=== PATIENT | male | born 1955 | race Caucasian/White ===

== ENCOUNTER → 2023-07-01 15:42 | Outpatient (REF) | payer BC, SELFPAY | LOC: RAD 15:42 | PROVIDERS: ATTENDING PHYSICIAN Nurse Practitioner | DX: R22.1 Localized swelling, mass and lump, neck (principal) | CPT/HCPCS: 76536 ==

== ENCOUNTER → 2023-07-07 16:58 | Outpatient (REF) | payer BC, SELFPAY | LOC: CLAB 16:58 | PROVIDERS: ATTENDING PHYSICIAN Otolaryngology | DX: R22.1 Localized swelling, mass and lump, neck (principal) | CPT/HCPCS: 88173 ==

== ENCOUNTER → 2023-07-16 09:37 | Outpatient (REF) | payer BC, SELFPAY | LOC: RAD 09:37 | PROVIDERS: ATTENDING PHYSICIAN Nurse Practitioner | DX: R22.1 Localized swelling, mass and lump, neck (principal) | CPT/HCPCS: 70491; Q9967 ==

== ENCOUNTER → 2023-08-04 12:13 | Outpatient (REF) | payer BC, SELFPAY ==
[2023-08-04 12:45] VITALS: BP 150/91; BP_SYST 69
== END ==
LOC: RADI 12:13
PROVIDERS: ATTENDING PHYSICIAN Otolaryngology; FAMILY PHYSICIAN Nurse Practitioner
DX: C07 Malignant neoplasm of parotid gland (principal)
CPT/HCPCS: 88305; 20206; 76942; 88333; 88334; 88341; 88342

== ENCOUNTER 2023-12-17 17:59 | Inpatient (IN) | payer BC, MEDICARE, SELFPAY ==
[2023-12-17] VITALS (52 sets, daily range): BP systolic 67–147; BP diastolic 37–119; BMI 21.6
[2023-12-17 13:44] LABS: Lactic Acid 3.5 mmol/L (0.7-2.0)
[2023-12-17] MEDS: NSS 1000 IV ×4 (13:49→20:53)
[2023-12-17 13:50] LABS: % Basophils 0.2 % (0-2); % Eosinophils 0.2 % (0-6); % Monocytes 8.2 % (1.7-9.3); % Neutrophils 80.4 % (42.2-75.2); Absolute Immature Granulocytes 0.2 10^3/uL (0-0.05); Absolute Lymphocytes 0.3 10^3/uL (1.2-3.4); Absolute Monocytes 0.4 10^3/uL (0.1-0.6); Absolute Neutrophils 3.4 10^3/uL (1.4-6.5); Hematocrit 23.6 % (39.0-52.0); Hemoglobin 7.9 g/dL (13.0-18.0); Mean Corp Hgb Conc. 33.5 g/dL (33.0-37.0); Mean Corpuscular Hgb 34.1 pg (27.0-31.0); Mean Corpuscular Volume 101.7 fL (80.0-94.0); Mean Platelet Volume 12.3 fL (7.4-10.4); Nucleated Red Blood Cells % 2.1 % (-); Platelet Count 36 10^3/uL (130-400); Red Blood Cell Count 2.32 10^6/uL (4.70-6.10); Red Cell Dist. Width 18.4 % (11.5-14.5); White Blood Cell Count 4.3 10^3/uL (4.8-10.8)
[2023-12-17 13:56] LABS: ALT (SGPT) 19 U/L (0-50); AST (SGOT) 76 U/L (17-59); Alkaline Phosphatase 403 U/L (38-126); Blood Urea Nitrogen 72 mg/dl (9-20); Calcium 7.9 mg/dl (8.4-10.2); Carbon Dioxide 22 mmol/L (22-30); Chloride 109 mmol/L (98-107); Estimated Creatinine Clearance 38 ml/min; Glucose 109 mg/dl (70-99); Magnesium 2.3 mg/dl (1.6-2.3); Potassium 5.2 mmol/L (3.5-5.1); Sodium 138 mmol/L (135-145); Total Bilirubin 0.7 mg/dl (0.2-1.3); Total Protein 5.4 g/dl (6.3-8.2); eGFR 39.99
--- NOTE | 2023-12-17 15:06 | ED.GENMED ---
History of Present Illness
General
Chief Complaint: Dizziness
Source: patient, spouse and family
Time Seen by Provider: 12/17/23 13:32
History of Present Illness
History of Present Illness:
68-year-old male with a history of unfortunate metastatic salivary duct cancer. Patient presents after his tried to stand him up and he was so weak he could not walk. Patient states he has been tired and weak. Patient underwent his dose of
radiation about 1 to 2 weeks ago to the left mandibular region/neck. He is awaiting reevaluation to decide on the next course. The patient was a longtime smoker. No longer smokes. Does admit he has lost weight and he has not been eating and
drinking quite as much as he should. Denies fevers. Recently was put on some Zofran for nausea. No headaches. No new vision changes. 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
Past History
Past History
ED Past Medical History: Cancer (Salivary cancer, metastatic), HTN and Hypercholesterolemia
Social History
Tobacco: Former smoker
Phy Exam
Physical Exam
Physical Exam:
CONSTITUTIONAL Patient alert and oriented to person, place and time. Vital signs reviewed. Hypotensive. Pale.
HEAD atraumatic, normocephalic.
EYES Pupils equally round and reactive to light, Extraocular muscles intact, Conjunctiva normal, Sclera normal.
NECK recent skin changes noted to the left neck. There is redness about his left ear and left neck with an open wound. There is some drainage but family states that this is much improved
RESPIRATORY CHEST No respiratory distress noted, Chest expansion equal, Bilateral breath sounds clear.
CARDIOVASCULAR regular rate and rhythm, Heart sounds normal.
ABDOMEN abdomen nontender, Bowel sounds normal. No distention.
UPPER EXTREMITY range of motion normal, Motor strength normal, no cyanosis, no edema.
LOWER EXTREMITY range of motion normal, Motor strength normal, no cyanosis, no edema.
NEURO left 7th nerve palsy noted. Slight slurring of the speech due to 7th nerve palsy.
SKIN skin warm, dry, and pale in color.
Course
Orders/Labs/Results
Orders:
Orders
12/17/23 13:23
EKG [Electrocardiogram (*1)] Urgent
Reason for Study: Vertigo / Dizzy
12/17/23 13:24
EKG- Treatment ONCE
12/17/23 13:25
Complete Blood Count/With Diff Urgent
Comprehensive Metabolic Panel Urgent
Lactic Acid Urgent
Magnesium Urgent
Comment: ADD
12/17/23 13:45
Add On- LAB Urgent
Tests Added?: Mg
0.9% Sodium Chloride 1000 ml [Nss] 1,000 ml IV BOLUS
12/17/23 13:46
CR Chest Portable - 1 View Urgent
Comment:
Reason For Exam: hypotension, salivary Ca, PICC line
Reason Study Needs to be Portable: Patient Unstable
12/17/23 14:16
CT Chest W/o Iv Contrast Urgent
Comment:
Reason For Exam: weak, SOB, abn CXR. h/o salivary gland ca
CT Head W/o Iv Contrast Urgent
Comment:
Reason For Exam: change in MS, h/o metastatic salivary gland ca
12/17/23 14:37
* Blood Bank Products Urgent
Blood Bank Products: *Packed RBC Leuko(PRBC's)
Quantity: 1
Transfuse Today: Yes
Reason: Anemia
IV Insert/Care/Rem.- Treatment PRN
12/17/23 14:38
Piperacillin/Tazo 4.5 Gram [Zosyn] 4.5 gram in 100 ml IV NOW
12/17/23 Dinner
Clear Liquid
At Your Request: Full Participation
Does patient need a safe tray?: No
12/17/23 15:07
Vancomycin [Vancocin] 2,000 mg 0.9% Sodium Chloride 500 ml [Nss] 500 ml IV NOW
12/17/23 15:09
0.9% Sodium Chloride 1000 ml [Nss] 1,000 ml IV BOLUS
12/17/23 15:16
Type And Crossmatch Urgent
Blood Culture Urgent
GENO Source: Blood/Venous
Specimen Description:
12/17/23 15:20
0.9% Sodium Chloride 1000 ml [Nss] 1,000 ml IV BOLUS
12/17/23 15:51
NORepinephrine 4 MG/250 ML [Levophed] 4 mg in 250 ml IV NOW
Initial dose in mcg/min, then titrate:: 2
Titrate to keep:: MAP > 65 mmHg
Titrate by mcg/min:: 1-2 mcg/min
Frequency of titrations (minutes):: 5
Maximum dose in ICU in mcg/min:: 30
Maximum dose in IMU in mcg/min:: 8
Maximum dose in IVU in mcg/min:: 4
Begin to taper infusion when:: Remained at goal for 4hrs
Taper by mcg/min:: 1-2 mcg/min
Frequency of taper (minutes) if patient maintains goal:: 30
Taper to off?: Yes
If infusion off & no longer maintaining goal:: Contact Provider
12/17/23 15:58
Piperacillin/Tazo 4.5 Gram [Zosyn] 4.5 gram in 100 ml .ROUTE .STK-MED
12/17/23 17:01
Admit/Transfer Patient As Directed
Co-Sign Provider:
Level of Care: Inpatient admission
Assign to:: ICU
Physician / Group: Hospitalists
Diagnosis: Clinical shock suspected sepsis
Reason for Hospitalization: See above
Expected length of stay greater than two midnights?: Yes
ELOS- Estimated Length of Stay in days: 4
I certify the patient meets the requirements for IP care: Yes
PRN Pain Medication Management As Directed
May give lesser potent ordered pain med per pt: Yes
preference::
Protocol:: Medication orders for pain may be administered in a
manner that supports deferring to patient preference
when the pt is:
-Requesting an ordered lesser potent pain medication.
Least to most potent pain medications are defined as:
acetaminophen < NSAID < tramadol < opioids (morphine,
oxycodone, hydromorphone).
- Requesting a lesser dose of the same medication IF
ORDERED.
- Requesting a less intrusive route of administration
if both routes are prescribed by the provider (PO <
IV).
12/17/23 17:07
Code Status As Directed
Resuscitation Status: Full Code
12/17/23 18:51
Lactic Acid Urgent
12/17/23 19:58
Lactic Acid Q6H
0.9% Sodium Chloride 1000 ml [Nss] 1,000 ml IV 125 mls/hr
Acetaminophen [Tylenol] 1,000 mg PO Q6HPRN PRN
NORepinephrine 4 MG/250 ML [Levophed] 4 mg in 250 ml IV PER PROTOCOL
Currently infusing. Continue current dose and titrate:: Yes
Titrate to keep:: MAP > 65 mmHg
Titrate by mcg/min:: 1-2 mcg/min
Frequency of titrations (minutes):: 5
Maximum dose in ICU in mcg/min:: 30
Maximum dose in IMU in mcg/min:: 8
Maximum dose in IVU in mcg/min:: 4
Begin to taper infusion when:: Remained at goal for 4hrs
Taper by mcg/min:: 1-2 mcg/min
Frequency of taper (minutes) if patient maintains goal:: 30
Taper to off?: Yes
If infusion off & no longer maintaining goal:: Contact Provider
Ondansetron Injectable [Zofran] 4 mg IV Q6HPRN PRN
Oxycodone [Roxicodone] 10 mg PO Q4HPRN PRN
Piperacillin/Tazo 2.25 Gram [Zosyn] 2.25 grams in 50 ml IV Q6H
VANCOMYCIN Pharmacy to Dose [VANCOCIN Pharmacy to Dose] 1 each Pharmacy To Prepare [Call Pharmacy To Prepare] 0 ml IV PER PROTOCOL
12/17/23 19:58
INFECTIOUS DISEASE CONSULT Routine
Consulting Provider: Elza Alvarez
Was physician already notified: Yes
Reason for consult: Septic Shock
WOUND/OSTOMY CONSULT Routine
Reason for Consult: Left neck radiation wound
Activity As Directed
Activity Level: With Assistance
Bladder Scan As Directed
Follow Bladder Retention/Intermittent Cath Algorithm?: Yes
PRN if no void in __ hours: 6
Frequency: Per Retention Algorithm
If Bladder Scan Result >: 400
then:: Straight cath
I&O [Intake/ Output] As Directed
Frequency: q12h
Sequential Compression Device [Pneumatic Compression Sleeves] As Directed
Type: Knee high
Straight Cath As Directed
Frequency: Per Retention Algorithm
Additional Instructions: straight cath as needed per acute urinary retention algorithm for 24 hrs
Additional Instructions: for bladder scan greater than 400 mL
Oxygen Therapy [O2 Therapy] [RESP] Routine
Titrate/Wean O2 to maintain O2 sat greater than (%): 93
Speech Therapy Eval & Treat Routine
DX Deep Vein Thrombosis Video Routine
12/17/23 20:00
Tamsulosin [Flomax] 0.4 mg PO BID
calcium acetate-aluminum sulf [Domeboro] 1 applic TOPICAL BID
fluticasone propion-salmeterol [Advair Diskus] 1 inh INH R BID
ulzonfxa-ksdvfdzhbYq-nzveotguL [Neosporin (zyl-jux-zeicc)] 1 applic TOPICAL BID
12/17/23 22:00
Gabapentin [Neurontin] 300 mg PO TID
Trazodone [Desyrel] 50 mg PO HS
12/18/23 01:58
Lactic Acid Q6H
12/18/23 06:00
CBC/No Diff [Complete Blood Count/No Diff] IN AM
CMP [Comprehensive Metabolic Panel] IN AM
12/18/23 08:00
Rosuvastatin Calcium [Crestor] 20 mg PO DAILY
Abnormal Lab Results
12/17/23 12/17/23
13:25 15:16
WBC 4.3 L 10^3/uL
(4.8-10.8)
RBC 2.32 L 10^6/uL
(4.70-6.10)
Hgb 7.9 L g/dL
(13.0-18.0)
Hct 23.6 L %
(39.0-52.0)
MCV 101.7 H fL
(80.0-94.0)
MCH 34.1 H pg
(27.0-31.0)
RDW 18.4 H %
(11.5-14.5)
Plt Count 36 L 10^3/uL
(130-400)
MPV 12.3 H fL
(7.4-10.4)
Abs Immat Gran (auto) 0.2 H 10^3/uL
(0-0.05)
Absolute Lymphs (auto) 0.3 L 10^3/uL
(1.2-3.4)
Immature Gran % 4.0 H %
(0-0.5)
Neutrophils % 80.4 H %
(42.2-75.2)
Lymphocytes % 7.0 L %
(20.5-51.1)
Potassium 5.2 H mmol/L
(3.5-5.1)
Chloride 109 H mmol/L
(98-107)
BUN 72 H mg/dl
(9-20)
Creatinine 1.8 H mg/dL
(0.7-1.3)
Glucose 109 H mg/dl
(70-99)
Lactic Acid 3.5 H mmol/L
(0.7-2.0)
Calcium 7.9 L mg/dl
(8.4-10.2)
AST 76 H U/L
(17-59)
Alkaline Phosphatase 403 H U/L
(38-126)
Total Protein 5.4 L g/dl
(6.3-8.2)
Albumin 3.0 L g/dl
(3.5-5.0)
Crossmatch IS Only See Detail
12/17/23 13:25
12/17/23 13:25
Vital Signs
Initial and Last Documented VS:
Initial Vital Signs
BP
84/51
12/17/23 13:22
Last Documented Vital Signs
Temp Pulse Resp BP Pulse Ox
98.6 F 93 11 104/88 96
12/17/23 20:04 12/17/23 20:07 12/17/23 20:07 12/17/23 19:49 12/17/23 19:39
MDM/Problems Addressed
MDM/Problems Addressed:
Pancytopenia, thrombocytopenia, anemia, dehydration, hypotension, lactic acidosis, possible pneumonia versus metastatic disease
*Radiology
Radiology exam reviewed: preliminary read by ED provider (Interstitial changes bilateral concerning for infection versus metastatic disease)
*Pulse Oximetry
Patient hypoxic: no
*EKG
Interpreted by ED Provider?: Yes
Interpretation: abnormal
Rate: normal
Rhythm: sinus
QRS Pattern: poor R-wave progression
Ischemia: non-specific ST changes
*[employer] Interpretation
Rate: normal
Interpretation: normal
Rhythm: sinus
*Critical Care Note
Total Time (30-74mins, 75-104mins- exclusive of procedures): 60 minutes
Data Reviewed
Review of Other/Old Records Reveals: Labs (Prior labs reviewed as patient's has copy of labs from June but only shows complete metabolic profile that was normal)
Source: patient and spouse
Further Testing Considered But Not Given:
Consider CTA but no hypoxia and do not suspect pulmonary embolism
Patient Management
Discussion with other providers: Hospitalist
Escalation/DeEscalation of care consider admission/obs:
Patient hypotensive. Suspect hypovolemia but also concern for infection given his pancytopenia. Given lactic acidosis, treat broad-spectrum antibiotics and continue fluids. Also will transfuse 1 unit of packed cells. I believe that the
pancytopenia is new as spouse is unaware of any anemia that he has had. Chest x-ray reviewed by me independently and I am concerned about metastatic disease. Check CT. Admit
ED Attending Note
-
Portions of this chart may have been created with voice recognition software.� Occasional wrong word or��sound alike� substitutions may have occurred due to the inherent limitations of voice recognition software.
Discharge Plan
Departure
Patient Disposition: Admit
Date of Disposition: 12/17/23
Time of Disposition: 15:10
Admit to: Telemetry
Presentation/result/management discussed w/ accepting MD/DO: Hospitalist
Discharge Problem:
Hypovolemia, Anemia, Thrombocytopenia, Pancytopenia, metastatic salivary cancer
Interventions
Interventions:
*Risk Screen - Suicide Last Done: 12/17/23 13:30
*General Assessment Last Done: 12/17/23 13:30
*Neglect/Abuse Screening Last Done: 12/17/23 13:30
ED- Fall Risk Assessment Last Done: 12/17/23 13:30
*ED COVID-19 Vaccine History Last Done: 12/17/23 13:30
*Nursing Disposition Last Done: 12/17/23 18:56
ED- Neurological Assessment Last Done: 12/17/23 13:30
ED- Cardiac Assessment Last Done: 12/17/23 13:30
ED Swallowing Screen Last Done: 12/17/23 13:30
Discharge Date and Time
Discharge Date/Time: 12/17/23 19:50
[2023-12-17] MEDS: VANCOCIN 540 MG IV (15:38)
--- NOTE | 2023-12-17 15:50 | EDRN ---
this RN noticed that the pt was hypotensive, Dr. Jimenez notified, IVF Bolus hung and running along with IV ABX, currently blood pressure 86/59 (68), awaiting blood products, per the pts brothers request and the pt the pt was repositioned onto his
left side due to pain in the sacral area, this RN and Mario RN repositioned the pt for comfort, per Dr. Jimenez levophed is to be hung, per the provider the RUE DL PICC is able to be used
--- NOTE | 2023-12-17 15:55 | EDRN ---
awaiting for pharmacy to sent radha
[2023-12-17] MEDS: ZOSYN 100 IV (16:03)
[2023-12-17] MEDS: LEVOPHED 250 IV ×2 (16:11→21:52)
--- NOTE | 2023-12-17 16:20 | EDRN ---
Levophed hung and running via RUE PICC, the PICC is being used per Dr Menard verbal orders, the pt is resting in stretcher in the lowest position, side rails up xx2, call solorio within reach, HOB elevated, no c/o pain, the pt is currently still
resting on his left side for comfort due to sacral pain, the pt is currently in NSR in the 90's, RA p02 96%, no c/o chest pain, no c/o SOB, last BP 73/56 (62) with Levo going at 2mcg/kg/min, will continue to monitor the pt closely
--- NOTE | 2023-12-17 16:36 | EDRN ---
the pts Sp02 dropped to 88%, this RN placed 4L NC on the pt and sp02 came up to 96%, provider notified
--- NOTE | 2023-12-17 16:36 | EDRN ---
still awaiting for blood to be verified
--- NOTE | 2023-12-17 16:52 | EDRN ---
hospitalist is currently at the pts bedside
--- NOTE | 2023-12-17 17:26 | EDRN ---
still awaiting for blood to be verified from the blood bank
--- NOTE | 2023-12-17 17:40 | W.PN.UPDATE ---
Update Note
Progress Note Update
I personally performed a history and physical exam of the patient and discussed management with the resident. I reviewed the resident's note and agree with the documented findings and plan of care HPI/CC.
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 His cancer team including rad oncology, ENT and med unk are at [facility]. Has not received yet
chemoradiation. He has left neck radiation wound which according to the family is getting better.
He presents with dizziness, weakness and fatigue and discovered to have significant hypotension which did not respond to fluid and suggestive of shock. Requiring vasopressors in the ER. His left leg wound does not look infected. Is got a left
facial nerve palsy and he has had some difficulty chewing. Denies any coughing or food but does admit to aspiration. Chest x-ray shows bilateral interstitial kind of pneumonia. No GI or symptoms. Clinical concern is either aspiration
pneumonia/hospital associated pneumonia versus other interstitial lung process. Continue with Levophed and fluid. Started on Vanco and Zosyn. Consult ID. Keep him on clear liquids and order speech therapy eval.
No known cardiac history. History of hypertension on oral medication which we will hold. EKG shows nonspecific ST-T changes. Check troponins. Consider echocardiogram.
Lactic acidosis noted which is suspect may be secondary to sepsis. Continue to trend with hemodynamic support.
Surprising thing is pancytopenia. Patient did not receive any chemo or immune therapy yet. 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 Will touch base with primary
oncologist to see how his blood counts were before. Because severe nature of anemia he was ordered PRBC in the ER. Follow platelets closely. He is not neutropenic.
Hypoxic respiratory kamkuzqkrqnum-peogz-kkdpoqa secondary to underlying lung disease. Support with oxygen for now and treat possible pneumonia and follow.
Possible acute kidney injury-patient has elevated BUN/creatinine. No acidosis no significant fluid overload clinically. Unknown baseline. Support hemodynamics with fluids and vasopressors. Check bladder scan. If no improvement will consider
ultrasound of the renal tract in AM. Denies any urinary symptoms of retention.
Full code.
DW at bedside.
--- NOTE | 2023-12-17 18:31 | HPS.HSE ---
Family Physician
-
Family Physician: DEION Johnson
Chief Complaint
-
Dizziness and weakness
History of Present Illness
Patient is a 68-year-old gentleman who presented to the emergency department after his tried to stand up in the morning and he was so weak he could not walk. Patient felt tired and weak. Patient underwent radiation about 1 to 2 weeks ago to
the left mandibular region/neck for left parotid gland adenocarcinoma. There are C2 vertebral body metastasis and rib metastases but no known history of bone marrow infiltration. He has had 20 cycles of radiation treatments at [facility]
[place]. His cancer team including rad oncology, ENT, and med oncology are at [facility]. He was awaiting reevaluation to decide on his next course patient has history of being a longtime smoker and has quit smoking. Patient
stated that he was aware that he had been losing weight and contributes it to eating and drinking not as much as he should. Patient denied any fevers, headaches, or new vision changes. 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 He
presented with dizziness, weakness and fatigue and was discovered to have significant hypotension which was not responsive to fluid - suggesting shock. Patient required vasopressors in the emergency department. Patient denied any coughing of food
but did admit to having aspiration at times. Chest x-ray conducted in the emergency department showed diffuse coarsening of the interstitial markings throughout both lungs which was new compared to prior studies�suggesting diffuse interstitial
pneumonia. Patient was admitted to [facility] for clinical shock due to suspected sepsis.
Medical History
Past Medical History
Past Medical History: Reports Cancer, COPD, HTN and Hypercholesterolemia
Past Surgical History: Reports None
Social History
Tobacco: Former Smoker
Alcohol: None
Drug: None
Family History
Family History: Not pertinent
Allergies / Home Medications
Allergies reflects when Allergies were last updated in [facility].
Home Medications with original date entered in [facility]
Allergy/Medication List:
Allergies
Allergy/AdvReac Type Severity Reaction Status Date / Time
No Known Allergies Allergy Unverified 08/03/23 09:32
Home Medications
rosuvastatin 20 mg tablet 20 mg PO DAILY 08/03/23
tamsulosin 0.4 mg capsule 0.4 mg PO BID 08/03/23
acetaminophen 500 mg tablet (Tylenol Extra Strength) 1,000 mg PO Q6HPRN PRN mild pain 12/17/23
calcium acetate 952 mg-aluminum sulfate 1,347 mg topical powder packet (Domeboro) 1 applic topical BID cancer treatment wounds 12/17/23
fluticasone 250 mcg-salmeterol 50 mcg/dose blistr powdr for inhalation (Advair Diskus) 1 inh inhalation R BID 12/17/23
gabapentin 300 mg capsule 300 mg PO TID 12/17/23
ibuprofen 200 mg tablet (Advil) 600 mg PO Q6HPRN PRN mild pain 12/17/23
metoprolol tartrate 25 mg tablet 25 mg PO BID 12/17/23
neomycin-bacitracn Zn-polymyxn 3.5 mg-400 unit-5,000 unit top oint pkt (Neosporin(oht-ody-nouin)) 1 applic topical BID cancer treatment wounds 12/17/23
ondansetron HCl 8 mg tablet 8 mg PO Q8HPRN PRN nausea 12/17/23
oxycodone 10 mg tablet 10 mg PO Q4HPRN PRN severe pain 12/17/23
trazodone 50 mg tablet 50 mg PO HS 12/17/23
valsartan 80 mg tablet 80 mg PO DAILY 12/17/23
Review of Systems
-
History Source: Patient
Constitutional: Reports See HPI
Physical Exam
Vital Signs
Vital Signs
Temp Pulse Resp BP Pulse Ox
97.8 F 95 16 91/80 96
12/17/23 18:13 12/17/23 18:13 12/17/23 18:13 12/17/23 18:13 12/17/23 18:13
Physical Exam
General: Well Developed and Other (Reduced Body Temperature)
HEENT: NormoCephalic and Anicteric
Respiratory: Clear
Cardiac: S1/S2 and Regular Rhythm
Breast: Deferred by me
GI: Soft, Non Tender and Non Distended
Rectal: Deferred by Provider
Genito-urinary: Deferred by me
Musculoskeletal: No Clubbing
Skin: Warm and Dry
Neuro: Facial Droop
Psych: Calm
Laboratory Results
-
12/17/23 13:25
12/17/23 13:25
Laboratory Results
Lactic Acid 3.5 mmol/L (0.7-2.0) H 12/17/23 13:25
Total Bilirubin 0.7 mg/dl (0.2-1.3) 12/17/23 13:25
AST 76 U/L (17-59) H 12/17/23 13:25
ALT 19 U/L (0-50) 12/17/23 13:25
Alkaline Phosphatase 403 U/L (38-126) H 12/17/23 13:25
Impression/Plan
-
- Clinical shock due to suspected sepsis: Monitoring
significant hypotension requiring vasopressors in the emergency department
Patient admitted to aspiration and chest x-ray shows signs of pneumonia with extensive diffuse coarsening of the interstitial markings throughout both lungs -clinical concern is either aspiration pneumonia/hospital acquired pneumonia versus other
interstitial lung processes.
Blood culture drawn
Continue Levophed and fluid
Vancomycin and Zosyn started
Infectious diseases consulted
Patient will be kept on clear liquids and a speech therapy eval has been ordered.
- Pancytopenia: Monitoring
1 unit of PRBCs given due to severe anemia
Trend H&H, white blood cells, and platelets
Will touch base with primary oncologist to see what his blood counts were prior to his presentation in the emergency department
-Lactic acidosis: Monitoring
May be secondary to sepsis -will continue to trend with hemodynamic support
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
CT of the head ordered.
-Possible acute kidney injury: Monitoring
Upon admission the patient has an elevated BUN of 72 and creatinine of 1.8. No acidosis and no significant fluid overload clinically. Patient's renal function baseline is not known.
Follow creatinine
Give hemodynamic support with fluids and vasopressors
bladder scan protocol
If no improvement will consider ultrasound of the renal tract in the morning.
-Essential hypertension: Monitoring
Patient has a history of hypertension on oral medication which we will hold. EKG shows nonspecific ST changes. Will check troponins and consider echocardiogram.
-Hypoxic respiratory insufficiency: Monitoring
Suspected secondary to underlying lung disease. Support with oxygen for now and treat possible pneumonia.
DVT prophylaxis: Sequential compression devices
Full code
[2023-12-17 19:19] LABS: Lactic Acid 1.7 mmol/L (0.7-2.0)
--- NOTE | 2023-12-17 20:00 | PTCARENOTE ---
Received pt via ED for clinical shock and suspected sepsis, full code. Patient was brought to the ED by for lower extremity weakness after 2 months of radiation for parotid cancer. Over the past 2 months pt has lost around 35lbs in total.
Suspected for aspiration pneumonia as well. AOx4 but a little drowsy, left facial nerve palsy (from radiation) and twitching of extremities. Upper and Lower extremities both weak. NSR (80's), radial pulses present, LE pulses present with Doppler. +1
Edema in LE. Pt on 4L nasal canula, lung sounds clear and diminished bilaterally. LBM 7/23, hypoactive bowel sounds. Bladder slightly distended with no urine output upon arrival. Left ear/neck wound open to air and draining prior to admission (from
radiation), scattered ecchymosis on upper and lower extremities. Right arm dual lumen Picc, and left AC 20G. IV fluids and Levo running, titrating per order. Labs drawn, results pending.
--- NOTE | 2023-12-17 20:20 | W.PN.SEPSIS ---
Sepsis
Vital Signs
Temp Pulse Resp BP Pulse Ox
98.6 F 93 11 104/88 96
12/17/23 20:04 12/17/23 20:07 12/17/23 20:07 12/17/23 19:49 12/17/23 19:39
Physical Exam
Physical Exam:
A focused exam was performed after fluid resuscitation.
Capillary Refill
Bilateral Upper Extremity:
Bashir Time: Less than 3 sec
Bilateral Lower Extremity:
Bashir Time: Less than 3 sec
Pulse Evaluation
Bilateral Radial:
Pulse Evaluation: Present
Bilateral Dorsalis Pedis:
Pulse Evaluation: Present
--- NOTE | 2023-12-17 20:51 | PHA.VAN.IN ---
Assessment
- Assessment
Renal Function: Unknown baseline
Concomitant Antimicrobials: piperacillin/tazobactam
Plan
- Plan
Initial / Loading Dose: vanc 2000mg administered in ED @ 1538
Maintenance Regimen: dosing by level
Monitoring: random level 12/17 06
MRSA Screen: Ordered per protocol
Pharmacokinetics Vancomycin I
- -
Patient Age: 68
Patient Sex: Male
Vancomycin Day #: 1
Indication: Pulmonary/Respiratory
Requesting Provider: Dr. Lal
Pertinent Antimicrobial Allergies:
no pertinent antimicrobial allergies
Height / Weight:
Height 5 ft 11 in
Actual Weight 70.3 kg
Pertinent Past Medical History: adenocarcinoma undergoing radiation tx
- Vital Signs / Lab Results
Temp Pulse Resp BP Pulse Ox
98.6 F 93 11 104/88 96
12/17/23 20:04 12/17/23 20:07 12/17/23 20:07 12/17/23 19:49 12/17/23 19:39
Lab Results - Hematology
12/17/23
13:25
WBC 4.3 L
Lab Results - Chemistry
12/17/23
13:25
BUN 72 H
Creatinine 1.8 H
Estimated Creat Clear 38
Albumin 3.0 L
12/17/23 12/17/23
13:25 18:51
Lactic Acid 3.5 H 1.7
[2023-12-17] MEDS: FLOMAX 0.4 MG PO (20:54)
[2023-12-17] MEDS: NEURONTIN 300 MG PO (20:54)
[2023-12-17 20:55] LABS: INR 1.29; PT 16.2 Sec (11.4-14.6)
[2023-12-17] MEDS: ZOSYN 50 IV (20:55)
[2023-12-17] MEDS: DESYREL 50 MG PO (20:55)
[2023-12-17 20:58] LABS: Lactic Acid 1.6 mmol/L (0.7-2.0)
[2023-12-17 21:05] LABS: Blood Urea Nitrogen 64 mg/dl (9-20); Calcium 7.6 mg/dl (8.4-10.2); Carbon Dioxide 18 mmol/L (22-30); Chloride 111 mmol/L (98-107); Estimated Creatinine Clearance 43 ml/min; Glucose 119 mg/dl (70-99); Potassium 4.6 mmol/L (3.5-5.1); Sodium 137 mmol/L (135-145); eGFR 46.06
[2023-12-17] MEDS: ADVAIR HFA 115/21 MCG INHALER 2 PUFF INH (21:49)
[2023-12-17] MEDS: POLYSPORIN OINTMENT 1 APPLIC TOPICAL (21:53)
[2023-12-17] MEDS: ROXICODONE 10 MG PO (22:00)
[2023-12-17 22:39] LABS: Hematocrit 29.4 % (39.0-52.0); Hemoglobin 9.9 g/dL (13.0-18.0)
[2023-12-17 23:36] LABS: Urine Albumin 1+ (Neg - Trace); Urine Bilirubin Negative (Negative); Urine Character Slightly Cloudy (Clear); Urine Color Yellow; Urine Glucose Negative (Negative); Urine Ketone Negative (Negative); Urine Leukocyte Negative (Negative); Urine Nitrite Negative (Negative); Urine Occult Blood Trace (Negative); Urine Urobilinogen Negative (Neg - 1+)
[2023-12-18] VITALS (54 sets, daily range): BP systolic 70–113; BP diastolic 31–77; BMI 21.6
[2023-12-18 01:17] LABS: Urine Amorphous Seen; Urine Bacteria Many (Negative); Urine Granular Cast >15 /LPF (0); Urine Squamous Cell >30 /LPF (Few)
[2023-12-18] MEDS: ZOSYN 50 IV ×4 (03:39→22:04)
[2023-12-18 03:43] LABS: Venous Blood Gas B.E. -8.2 mmol/L (-4 to +4); Venous Blood Gas HCO3 18.4 mmol/L (22-27); Venous Blood Gas O2 Sat % 99.4 %; Venous Blood Gas pCO2 41 mmHg (35-48); Venous Blood Gas pH 7.26 (7.32-7.43); Venous Blood Gas pO2 121 mmHg (30-50)
[2023-12-18 03:54] LABS: Hematocrit 27.5 % (39.0-52.0); Hemoglobin 9.3 g/dL (13.0-18.0); Mean Corp Hgb Conc. 33.8 g/dL (33.0-37.0); Mean Corpuscular Volume 91.7 fL (80.0-94.0); Mean Platelet Volume 11.5 fL (7.4-10.4); Platelet Count 37 10^3/uL (130-400); Red Cell Dist. Width 21.3 % (11.5-14.5); White Blood Cell Count 5.6 10^3/uL (4.8-10.8)
--- NOTE | 2023-12-18 04:00 | PTCARENOTE ---
Pts SPAO2 dropped to high 80's , increased oxygen via nasal canula from 2 to 5 liters and humidifier connected, SPAO2 went to low 90's. Labs drawn. Hygiene performed. Safe environment maintained.
[2023-12-18 04:15] LABS: Vancomycin Random 16.9 ug/ml
[2023-12-18 04:29] LABS: ALT (SGPT) 18 U/L (0-50); AST (SGOT) 94 U/L (17-59); Albumin 2.7 g/dl (3.5-5.0); Alkaline Phosphatase 413 U/L (38-126); Blood Urea Nitrogen 61 mg/dl (9-20); Calcium 7.8 mg/dl (8.4-10.2); Carbon Dioxide 19 mmol/L (22-30); Chloride 114 mmol/L (98-107); Estimated Creatinine Clearance 46 ml/min; Glucose 112 mg/dl (70-99); Magnesium 2.3 mg/dl (1.6-2.3); Potassium 4.6 mmol/L (3.5-5.1); Sodium 138 mmol/L (135-145); eGFR 49.77
[2023-12-18 04:32] LABS: Troponin I 0.409 ng/ml
[2023-12-18 04:37] LABS: Procalcitonin 0.79 ng/ml (0.0-0.25)
[2023-12-18] MEDS: NSS 1000 IV ×2 (04:55→15:20)
[2023-12-18] MEDS: LEVOPHED 250 IV ×2 (05:01→15:20)
--- NOTE | 2023-12-18 05:38 | PTCARENOTE ---
No changes in previous assessment. SPAO2 remaining around 95 on 6L with humidifier. Will continue to monitor.
[2023-12-18] MEDS: ROXICODONE 10 MG PO ×3 (06:08→22:04)
--- NOTE | 2023-12-18 07:24 | CON.INTV ---
Consultation
Consultation Request
Date/Time Consultation Requested: 12/18/2023-7:30 AM
Date/Time Consultation Performed: 12/18/2023-7:30 AM
Requesting Provider: Hospitalist
Performing Provider: Dr. Silva
Reason for Consultation: Sepsis
Medical History
-
Chief Complaint: Sepsis
History of Present Illness:
He feels improved this morning after intravenous fluids. He still on pressors. He denies any shortness of breath, chest congestion, productive cough, pleurisy, anterior chest pain, abdominal pain, nausea, focal weakness or lower extremity swelling.
Past Medical History
Past Medical History: None (Hypertension. Hyperlipidemia. COPD. Former smoker. Carotid adenocarcinoma with metastatic disease status post 20 cycles XRT-[facility] with known rib and vertebral mets. 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
Social History
Tobacco: Former Smoker ( [id number] quit 2 years ago)
Alcohol: None
Drug: None
Living: With Family
Occupational Exposures: No known asbestos exposure
Environmental Exposures: No known tuberculosis exposure
Family History
Family History: Reviewed & Not Pertinent and Other (Mother-COPD)
Allergies / Home Medications
Allergies
Allergy/AdvReac Type Severity Reaction Status Date / Time
mupirocin AdvReac Vomiting Verified 12/17/23 21:17
Home Medications
�Medication �Instructions �Recorded �Confirmed �Last Taken �Type
rosuvastatin 20 mg tablet 20 mg PO DAILY 08/03/23 12/17/23 12/17/23 History
tamsulosin 0.4 mg capsule 0.4 mg PO BID 08/03/23 12/17/23 12/17/23 History
acetaminophen 500 mg tablet 1,000 mg PO Q6HPRN PRN mild pain 12/17/23 12/17/23 12/16/23 History
(Tylenol Extra Strength)
calcium acetate 952 mg-aluminum 1 applic topical BID cancer 12/17/23 12/17/23 12/17/23 History
sulfate 1,347 mg topical powder treatment wounds
packet ([place])
fluticasone 250 mcg-salmeterol 50 1 inh inhalation R BID 12/17/23 12/17/23 12/17/23 History
mcg/dose blistr powdr for
inhalation (Advair Diskus)
gabapentin 300 mg capsule 300 mg PO TID 12/17/23 12/17/23 12/17/23 History
ibuprofen 200 mg tablet (Advil) 600 mg PO Q6HPRN PRN mild pain 12/17/23 12/17/23 12/16/23 History
metoprolol tartrate 25 mg tablet 25 mg PO BID 12/17/23 12/17/23 12/17/23 History
neomycin-bacitracn Zn-polymyxn 3.5 1 applic topical BID cancer 12/17/23 12/17/23 12/17/23 History
mg-400 unit-5,000 unit top oint treatment wounds
pkt (Neosporin([id number]))
ondansetron HCl 8 mg tablet 8 mg PO Q8HPRN PRN nausea 12/17/23 12/17/23 12/17/23 History
oxycodone 10 mg tablet 10 mg PO Q4HPRN PRN severe pain 12/17/23 12/17/23 12/17/23 History
trazodone 50 mg tablet 50 mg PO HS 12/17/23 12/17/23 12/16/23 History
valsartan 80 mg tablet 80 mg PO DAILY 12/17/23 12/17/23 12/17/23 History
Review of Systems
-
Unable to Obtain full review of systems at this time due to: Other (Per HPI)
Vitals / Labs / Diagnostic Testing
Vital Signs
Temp Pulse Resp BP Pulse Ox
98.9 F 91 12 111/63 93
12/18/23 07:11 12/18/23 06:00 12/18/23 06:00 12/18/23 06:00 12/18/23 06:00
Lab Data
12/18/23 03:29
12/18/23 03:29
Laboratory Results
12/17/23
20:37
PT 16.2 H
INR 1.29
APTT 39.0 H
Diagnostic Testing:
Physical Exam
-
Exam:
Well-nourished and well-developed in no apparent distress
HEENT-atraumatic, normocephalic, left facial droop, radiation healy noted on neck with some oozing
Neck-supple, no JVD, no bruit
Heart-regular rate and rhythm-no murmurs, rubs or gallops
Chest with diminished breath sounds, rare crackle and no wheezing
Back-no tenderness
Abdomen-soft, nontender, nondistended, no hepatosplenomegaly
Extremities-no cyanosis, clubbing, edema and good peripheral pulses
Integument-intact, no rashes, lesions or ecchymosis
Neurology-alert and oriented, nonfocal motor and sensory exam
Assessment
-
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
disease and rib mets admitted with sepsis-anesthesiologist attending consulted for sepsis/shock/critical care management 12/18/2023.
Sepsis with shock unresponsive to fluids requiring pressors
Pneumonia-aspiration versus widely metastatic disease to the lung parenchyma
Pancytopenia
Qaiufb-xicwpyqiss-akmnipxkoj 7.9 status post transfusion
Leukopenia-WBC 4.3
Thrombocytopenia-platelet 36
Lactic acidosis
LOGAN
Mild hyperglycemia
Hypocalcemia
Conditions present prior to admission:
Hypertension.
Hyperlipidemia.
COPD-followed by primary-on Advair and albuterol as needed
Former smoker.
Carotid adenocarcinoma-stage IV with metastatic disease status post 20 cycles XRT-[facility] with known rib and vertebral mets.
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
BPH
Plan
Admit patient to medical intensive care unit for persistent hypotension despite fluid resuscitation requiring pressors
Supplement oxygen as needed
High flow oxygen if needed
BiPAP if necessary
Intubate and mechanically ventilate if necessary
Aspiration precautions
Nebulizers if needed
CT chest consistent with widely metastatic pulmonary parenchymal disease versus diffuse infection
Severe emphysematous changes noted on CT lungs
Obtain cultures
Empiric antibiotics-vancomycin and Zosyn initiated
MRSA screen pending
Consider Infectious disease consultation
Monitor leukocytosis
Fluid resuscitation with 30 mL/kg crystalloid-preferably lactated ringer-(less LOGAN) with subsequent boluses as needed
Monitor lactate
Follow CVP if possible
Attempt noninvasive bedside tissue perfusion evaluation to see if fluid bolus responsive
Measure pulse pressure and stroke volume variation if patient on ventilator, passively breathing without arrhythmia and with temporary large tidal volume ventilation and if > 13% then likely fluid bolus responsive
If patient active then consider measuring bedside leg lift for 3 minutes and if cardiac output increases or if there is a rise of 2-4 on end-tidal CO2 then fluid bolus
If bedside ultrasound available then measure IVC diameter variation to evaluate for fluid bolus responsiveness
Begin pressors as needed for MAP goal of 65-Norepinephrine first, then Vasopressin and consider Angiotensin II if continues to be hypotensive
Consider methylene blue if available-specific inhibitor of induced nitric oxide synthase iNOS and its downstream enzyme soluble guanylate cyclase-noninferiority study shown to reduce time to vasopressor discontinuation, decreased ICU length of stay,
hospital stay but no change in mortality-published Critical Care 08/04/2022
If persistently hypotensive then consider checking random cortisol-hydrocortisone if random less than 3, if 3-15 then consider ACTH stimulation test
If persistently hyperthermic then correcting hyperthermia can decrease pressor requirements, increased chances of reversal of shock and decrease mortality
Monitor pancytopenia
Transfuse as needed
Oncology evaluation
Monitor renal function
Consider nephrology evaluation
DVT prophylaxis-mechanical with severe thrombocytopenia
Early nutrition if possible
Early mobilization/bedside range of motion
Eventual outpatient pulmonary tizpjd-av-ahmkyd emphysematous changes on CT, last low-dose lung cancer screening CT 04/07/2018-likely will receive repetitive imaging studies for his parotid cancer follow-up at [facility]
Critical care statement: A total of 50 minutes of critical care time was provided for this patient today. This includes management of unstable vital signs, evaluation of the patient at bedside, reviewing the patient's pertinent medical records
including radiographs, microbiology, laboratory evaluations, and discussion with primary team, consultants, pharmacy, nutrition, physical therapy, case management, charge nurse, critical care nursing, and respiratory therapy.
Diagnostic data:
Chest x-ray 12/17/2023-moderately extensive diffuse coarsening of interstitial markings throughout both lung edward suggesting diffuse interstitial pneumonia
CT tdrmk-nze-mqzk lung cancer screening 04/07/2018-no discrete pulmonary nodules or focal parenchymal consolidation
CT chest 12/17/2023-numerous nodular opacifications suspicious for pulmonary metastatic disease, progression of osteoblastic metastatic disease in the chest, severe COPD
CT head 12/17/2023-no acute intracranial abnormalities, left mastoid effusion,
PET scan 08/19/2023-FDG avid left parotid gland mass with SUV max of 11.2 with adjacent FDG avid lymph nodes as well as posterior and anterior cervical chain in the left supraclavicular area, FDG avidity in the C2 vertebral process, few scattered
small foci of FDG avid B in ribs bilaterally
Data Reviewed
-
EKG: Report reviewed by me
Radiology: Image personally visualized and interpreted and Report reviewed by me
CT Scan: Image personally visualized and interpreted and Report reviewed by me
Medical Tests (Nuc Med, Echo etc): Report reviewed by me
Labs: Labs reviewed by me
Old Records: Reviewed
Critical Care Time (in minutes): 50
[2023-12-18] MEDS: POLYSPORIN OINTMENT 1 APPLIC TOPICAL ×2 (07:25→20:02)
[2023-12-18] MEDS: NEURONTIN 300 MG PO ×3 (07:26→22:04)
[2023-12-18] MEDS: FLOMAX 0.4 MG PO ×2 (07:26→20:03)
[2023-12-18] MEDS: CRESTOR 20 MG PO (07:26)
[2023-12-18] MEDS: ADVAIR HFA 115/21 MCG INHALER 2 PUFF INH ×2 (08:28→19:35)
--- NOTE | 2023-12-18 08:50 | PTCARENOTE ---
Rec'd care of patient at 0700. Patient alert and oriented. Left facial palsy. MAEx4. NSR on tele monitor. +1 edema in b/l LE. +Doppler dp and pt pulses bilaterally. Pulse ox 98 on 6L nc. Patient states mild dyspnea. Fine crackles/diminished in b/l
base. +BS. No BM. Bladder scanned for 522 cc's. Straight cath'd at 0810 by 550 cc's of yellow uop. Appetite improved per patient but poor overall. OOB in chair x1 assistance for breakfast. Tolerating clears. Aspiration precautions enforced. Speech
therapist at bedside. Left neck wound kimmy. Sacrum blanchable red. Foam applied. VSS. IVFs and Levophed infusing through right dual lumen PICC. Titrating Levo for MAP >65.
--- NOTE | 2023-12-18 09:15 | CON.ID ---
Consultation
-
Date/Time Consultation Requested: 12/17/23 19:58
Date/Time Consultation Performed: 12/18/23 9:42
Requesting Provider: Dr Lal
Performing Provider: Dr Estrada
Reason for Consultation: Septic Shock
Chief Complaint / Past History
Chief Complaint
Dizziness and weakness
History of Present Illness
Mr Echeverria is a 68 year old male with past medical history notable for L parotid gland adenocarcinoma (last radiation 1-2 weeks ago, no chemotherapy, c/b left 7th nerve palsy, bone mets known, due for reevaluation) presenting here for weakness - new
onset inability to ambulate due to weakness. Also with dizziness, fatigue and unintentional weight loss which he relates to poor appetite. Endorses aspiration intermittently. Has some spontaneous brusising in the context of low plt. Minimal L
sinus tenderness and ear tenderness thats improving. Minimal serous drainage from the open wound on the l side of the face without surrounding erythema, warmth or odor. PICC in place [employer] and no erythema, warmth, tenderness or malfuction. Denies:
fevers, headaches, sinus tenderness, oral lesions, sore throat, sputum production, vomiting, diarrhea, new rashes, new joint pains. No pets or farm animals. In good spirits.
Since arrival here he has been afebrile, bp unstable not responding to fluid and started on pressors - norepi dose peaked at 10 mcg/min, now at 5 mcg/min, wbc on arrival 4.3 now 5.6, hgb 9.3, plt 36-37, L shift is noted, Na 137, cow 19, ccr 1.5
down from 1.8 (unknown baseline), lactic acid 1.7 and 1.6, t bili 1.0,, ast 94, alt 18, alk phos 413, procal sent in the context of shock and LOGAN not interpretable at 1.5, UA mild pyuria and >30 squamous cells/hpf and crystals seen, CXR: corse
intersitial markings - new picc line was placed, CT chest without ccontrast: numerous nodular opacities - metastatic disease, progressive osteoblastic met disease, severe COPD,
Past History
Additional Past Medical History:
COPD, HTN and Hypercholesterolemia
Past Surgical History: None
Allergy History:
mupirocin Adverse Reaction (Verified 12/17/23 21:17)
Vomiting
Medications Reviewed: Yes
Social History
Tobacco: Former Smoker
Alcohol: None
Drug: None
Family History
Family History: Not Pertinent
Review of Systems
Review of Systems
General: Negative Fever or Chills
All systems: All other systems were reviewed and were negative
Vital Signs
Temp Pulse Resp BP Pulse Ox
98.9 F 102 16 96/67 93
12/18/23 07:11 12/18/23 09:00 12/18/23 09:00 12/18/23 09:00 12/18/23 09:00
Physical Exam
Physical Exam
Constitutional: No Acute Distress
Cardiovascular: Regular Rate and S1/S2; Negative Murmur or Rub
Pulmonary: Clear and Symmetric; Negative Wheezes, Rales or Rhonchi
Gastrointestinal: Soft, Non Tender, Non Distended and Normal Bowel Sounds
Skin: Warm and Dry; Negative Rash or Jaundice
Psychological: Other (in good spirits)
Lab / Diagnostic Study Results
12/18/23 03:29
12/18/23 03:29
Abs Immat Gran (auto) 0.2 10^3/uL (0-0.05) H 12/17/23 13:25
Absolute Neuts (auto) 3.4 10^3/uL (1.4-6.5) 12/17/23 13:25
Absolute Lymphs (auto) 0.3 10^3/uL (1.2-3.4) L 12/17/23 13:25
Absolute Monos (auto) 0.4 10^3/uL (0.1-0.6) 12/17/23 13:25
Absolute Basos (auto) 0.0 10^3/uL (0-0.2) 12/17/23 13:25
Immature Gran % 4.0 % (0-0.5) H 12/17/23 13:25
Neutrophils % 80.4 % (42.2-75.2) H 12/17/23 13:25
Lymphocytes % 7.0 % (20.5-51.1) L 12/17/23 13:25
Monocytes % 8.2 % (1.7-9.3) 12/17/23 13:25
Eosinophils % 0.2 % (0-6) 12/17/23 13:25
Basophils % 0.2 % (0-2) 12/17/23 13:25
PT 16.2 Sec (11.4-14.6) H 12/17/23 20:37
INR 1.29 12/17/23 20:37
Lactic Acid Cancelled 12/18/23 01:58
Procalcitonin 0.79 ng/ml (0.0-0.25) H 12/18/23 03:29
Ur Squamous Epith Cells >30 /LPF (Few) 12/17/23 23:15
Microbiology Results
Micro:
12/17/23 23:15 Urine Culture - Pending
Urine
12/17/23 22:21 Nasal Screen MRSA (PCR) - Pending
Nose
12/17/23 15:16 Blood Culture - Pending
Blood/Venous
Assessment / Plan
Shock - suspected septic
Pancytopenia - improved
LOGAN +/- CKD
left parotid gland adenocarcinoma - not on immunosuppressive drugs
- send second set of blood cultures
- mrsa screen negative
- ua with mild pyuria, suggestion of contamination, asymptomatic
- CT chest - numerous mets, no definite new infiltrates
- procal sent in the context of shock and LOGAN not interpretable at 1.5
- check covid ag
- L mastoid effusion noted on CT head but no significant symptom in this area
- continue zosyn for present, he has not been on medications causing neutropenia or known to be neutropenic, with negative MRSA screen I have stopped vancomycin.
- added levaquin - we have limited clinical data on this patient with extensive health care exposure previously
- follow clinically, patient is critically ill
--- NOTE | 2023-12-18 09:39 | PTOTSP ---
SPEECH THERAPY SWALLOW EVALUATION:
Patient exhibits clinical signs of oropharyngeal dysphagia, likely chronic related to multiple predisposing dysphagia risk factors including: radiation to Left mandibular region/neck for Left parotid gland adenocarcinoma, C2 vertebral body mets,
Left 7th cranial nerve palsy from radiation, suspected pulmonary metastatic disease, COPD. Patient currently admitted with concern for pneumonia, suspicious for aspiration-related infection. Patient with unintentional weight loss (10-12 lbs/1 year)
and unable to eat solids for past ~1 year. Recommend Videofluoroscopic Swallowing Study to further assess swallow physiology. Given chronicity of dysphagia and current respiratory status, patient appears safe to continue Clear Liquid diet (thin
liquids) at this time until VSE. Recommend close monitoring for signs of aspiration, and d/c oral diet and make NPO should patient exhibit any decline in mental or respiratory status. Recommend medications whole with liquid. Aspiration precautions:
Upright positioning, small single sips, slow rate, only provide p.o. when SpO2>90% and RR<30. Oral care 3x/day and increased mobility as able/tolerated to reduce risk for nosocomial infection. Speech therapy to follow with additional recommendations
following VSE results. Aspiration precautions reviewed with patient. Recommendations discussed with patient, RN, Dr. Madrid.
RECOMMEND:
1) Videofluoroscopic Swallowing Study
2) Clear Liquid diet (thin liquids)
3) Close monitoring for signs of aspiration, and d/c oral diet and make NPO should patient exhibit any decline in mental or respiratory status
4) Medications whole with liquid
5) Aspiration precautions: Upright positioning, small single sips, slow rate, only provide p.o. when SpO2>90% and RR<30. Oral care 3x/day and increased mobility as able/tolerated to reduce risk for nosocomial infection
6) Speech therapy to follow
--- NOTE | 2023-12-18 09:47 | WOUNDNOTE ---
LEFT NECK/EAR
--- NOTE | 2023-12-18 09:54 | WOUNDNOTE ---
[facility] RN note: Patient admitted with left neck radiation wound
See H&P for complete history.
PMH: Left parotid gland adenocarcinoma. Last radiation 2 weeks ago.
Wound Location and type/assessment: Patient admitted with left neck radiation wound with yellow fibrin and slough. No odor noted. Area is tender to touch. Patient was prescribed Polysporin BID and has been using at home. Due to tenderness and
small amount of drainage, patient is requesting a solution to help cover wound. Heels intact. NANCY Garcia reported sacrum was intact and she just applied sacral foam dressing.
Appetite: Fair to poor
Pressure redistribution devices in place: Versa Care Air, ambulates and turns self
Plan: Wound was recently cleaned and polysporin applied by Radha. Wound was covered with sterile 4x4 and secured with silicone tape. Patient stated the dressing was comfortable. NANCY Garcia updated. Will confirm orders with hospitalist and follow
as needed.
--- NOTE | 2023-12-18 10:10 | CM ---
CM following re: discharge planning.
Reviewed pt's chart, met with pt and pt's sister-in law at bedside.
Pt is a 68 year old male, admitted with primary dx of Sepsis with shock.
Pt reports he lives with spouse in a 2SH, 2 steps to enter, has a son who lives in [place]. Pt described himself as independent in all ariadne [employer]. No DME, VN or SNF history. Pt expressed his desire to return back home at discharge with family.
PCP: Debra Carroll
Pharmacy: [facility]
D/C plan: home with anticipated no needs. Family to transport at discharge.
CM will follow with discharge plan updates as hospitalization progresses
[2023-12-18] MEDS: SENOKOT 8.6 MG PO ×2 (10:50→20:03)
[2023-12-18] MEDS: COLACE 100 MG PO ×2 (10:51→20:03)
--- NOTE | 2023-12-18 10:58 | PHA.VAN.FU ---
Vancomycin Assessment / Plan
- Assessment
Renal Function: SCR Decreasing (1.6>1.5)
WBC's are: Trending Up (4.3>5.6)
In the past 24 hrs, patient has been: Afebrile
Concomitant Antimicrobials: Piperacillin-tazobactam, Levofloxacin
- Assessment - Therapeutic Drug Monitoring
Random Level: 16.9 drawn ~12 hrs after 2gm vancomycin loading dose given
- Dosing Plan
Dosing by Level: Re-dose today (Vancomycin 1000mg x 1 today)
- Monitoring Plan
Random Level: Ordered for 12/19/23 at 06:00
- Follow Up
Pharmacy will continue to follow.
Vancomycin Follow UP
- -
Patient Age: 68
Patient Sex: Male
Vancomycin Day #: 2
Indication: Pulmonary/Respiratory
Requesting Provider: Dr. Lal
Pertinent Antimicrobial Allergies:
no pertinent antimicrobial allergies
Height / Weight:
Height 5 ft 11 in
Actual Weight 70.3 kg
IBW in k.3
Pertinent Past Medical History: adenocarcinoma undergoing radiation tx
- Vital Signs / Lab Results
Temp Pulse Resp BP Pulse Ox
98.9 F 97 13 84/52 91
12/18/23 07:11 12/18/23 10:38 12/18/23 10:38 12/18/23 10:38 12/18/23 10:30
Lab Results - Hematology
12/17/23 12/18/23
13:25 03:29
WBC 4.3 L 5.6
Lab Results - Chemistry
12/17/23 12/17/23 12/18/23
13:25 20:37 03:29
BUN 72 H 64 H 61 H
Creatinine 1.8 H 1.6 H 1.5 H
Estimated Creat Clear 38 43 46
Albumin 3.0 L 2.7 L
12/17/23 12/17/23 12/17/23
13:25 18:51 20:37
Lactic Acid 3.5 H 1.7 1.6
12/18/23
01:58
Lactic Acid Cancelled
Lab Results - Urine
12/17/23
23:15
Urine Nitrite (Reflex) Negative
Leukocyte Esterase Rfl Negative
Ur Squamous Epith Cells >30
Microbiology Results
12/17/23 22:21 Nasal Screen MRSA (PCR) - Final
Nose MRSA not detected - performed by PCR methodology.
Therapeutic Drug Monitoring
Random Vancomycin 16.9 ug/ml 12/18/23 03:29
[2023-12-18] MEDS: VANCOCIN 200 IV (11:29)
[2023-12-18] MEDS: LEVAQUIN 750 MG PO (11:29)
--- NOTE | 2023-12-18 11:51 | PTCARENOTE ---
Patient assisted back to bed after 3+ hours in chair. updated at bedside. VSS. Levophed weaned to 5 mcg/min. No complaints.
--- NOTE | 2023-12-18 13:03 | PTCARENOTE ---
Repeat blood cx's and covid swab sent. VSE scheduled for 1400.
--- NOTE | 2023-12-18 13:10 | W.PN.HOSP.TC ---
Today's Communication/Plan
-
A second set of blood cultures has been drawn. Infectious diseases recommending continuing Zosyn for the present time and has discontinued vancomycin due to negative MRSA screen. Levaquin was added due to limited clinical data on patient with
extensive healthcare exposure previously. Pressors are continued with a goal of 65 mean arterial pressure. Will continue to trend H&H, WBCs, and platelet count.
Assessment / Plan
Assessment / Plan
- Clinical shock due to suspected sepsis: Monitoring
significant hypotension requiring vasopressors in the emergency department
Patient admitted to aspiration and chest x-ray shows signs of pneumonia with extensive diffuse coarsening of the interstitial markings throughout both lungs -clinical concern is either aspiration pneumonia/hospital acquired pneumonia versus other
interstitial lung processes.
Blood culture drawn -second set of blood cultures sent
Continue Levophed and fluid -4 Levophed given since admission
Vancomycin and Zosyn started
Infectious diseases consulted -MRSA screen negative so vancomycin discontinued. They recommended continuing Zosyn for the present time. Levaquin added due to limited clinical data on this patient with extensive healthcare exposure previously.
Patient will be kept on clear liquids and a speech therapy eval has been ordered.
- Pancytopenia: Monitoring -
1 unit of PRBCs given due to severe anemia
Trend H&H, white blood cells, and platelets -hemoglobin and hematocrit stable, white blood cells now within normal limits. Thrombocytopenia ongoing.
Will touch base with primary oncologist to see what his blood counts were prior to his presentation in the emergency department.
-Lactic acidosis: Monitoring
May be secondary to sepsis -will continue to trend with hemodynamic support
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
CT of the head ordered.
-Acute kidney injury: Monitoring
Upon admission the patient has an elevated BUN of 72 and creatinine of 1.8. No acidosis and no significant fluid overload clinically. Patient's renal function baseline is not known.
Follow creatinine
Give hemodynamic support with fluids and vasopressors
bladder scan protocol
If no improvement will consider ultrasound of the renal tract in the morning.
-Essential hypertension: Monitoring
Patient has a history of hypertension on oral medication which we will hold. EKG shows nonspecific ST changes. Will check troponins and consider echocardiogram.
-Hypoxic respiratory insufficiency: Monitoring
Suspected secondary to underlying lung disease. Support with oxygen for now and treat possible pneumonia.
High flow oxygen if needed
BiPAP if necessary
Aspiration precautions
Nebulizers if needed
CT of chest consistent with widely metastatic pulmonary parenchymal disease versus diffuse infection
Severe emphysematous changes noted on CT lung
DVT prophylaxis: Sequential compression devices
Full code
Anticipated Discharge: > 48 hours
Subjective/Interval History
-
Date of Service: December 18, 2023
Met with patient at the bedside. Patient is in positive spirits and states that he feels better than he did yesterday. He is happy and makes jokes and feels like his condition is improving. He has not been able to urinate on his own and has been
catheterized twice since his admission.
Objective Data
-
Labs:
Laboratory Results
12/18/23
03:29
WBC 5.6
Hgb 9.3 L
Hct 27.5 L
Plt Count 37 L
Sodium 138
Potassium 4.6
Chloride 114 H
Carbon Dioxide 19 L
BUN 61 H
Creatinine 1.5 H
Glucose 112 H
Calcium 7.8 L
Total Bilirubin 1.0
AST 94 H
ALT 18
Alkaline Phosphatase 413 H
Vital Signs:
Vital Signs
Temp Pulse Resp BP Pulse Ox
97.8 F 94 12 84/58 93
12/18/23 11:18 12/18/23 13:00 12/18/23 13:00 12/18/23 13:00 12/18/23 13:00
I&O
12/17/23 12/18/23 12/19/23
06:59 06:59 06:59
Intake Total 2026.5 / 2182.5 1427.6 / 1427.6
Output Total 475 / 475 550 / 550
Balance 1552.5 / 1707.5 877.6 / 877.6
[2023-12-18 13:56] LABS: COVID-19 Antigen Negative (Negative)
--- NOTE | 2023-12-18 15:06 | PTCARENOTE ---
VSE complete. Patient ordered pureed diet with thin liquids. OOB in chair for dinner. VSS. Repeat Troponin due at 1530.
[2023-12-18] MEDS: ZOFRAN 4 MG IV (15:48)
[2023-12-18 16:06] LABS: Troponin I 0.232 ng/ml
--- NOTE | 2023-12-18 16:36 | PTOTSP ---
VIDEOFLUOROSCOPIC SWALLOWING STUDY:
Patient presents with moderate oral dysphagia and grossly intact pharyngeal swallow function likely chronic related to multiple predisposing and precipitating dysphagia risk factors including radiation to Left mandibular region/neck for Left parotid
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 No aspiration was noted during VSE. One episode of transient penetration on 1/2 tsp of thin liquid. Patient
remains at risk for aspiration and related complications given tenuous pulmonary status. Recommend IDDSI Level 4 Puree diet and thin liquids. Medications whole with thin liquid, one at a time. Aspiration precautions in place including: Upright
positioning, small single sips, small bites, slow rate of intake, take breaks while eating, only provide p.o. when SpO2>90% and RR<30, monitor for signs of aspiration and d/c oral diet if any decline in mental or respiratory status. Increased
mobility as able/tolerate and oral care 3x/day to reduce risk for nosocomial infection. Speech therapy to continue to follow, assess diet tolerance and modify as appropriate, provide continued diagnostic swallow therapy as appropriate, monitor CXR
and labs, and provide education regarding aspiration risks and precautions. Patient educated on aspiration risks/precautions.
RECOMMEND:
1) IDDSI Level 4 Puree diet and thin liquids
2) Medications whole with thin liquid, one at a time
3) Aspiration precautions in place including: Upright positioning, small single sips, small bites, slow rate of intake, take breaks while eating, only provide p.o. when SpO2>90% and RR<30, monitor for signs of aspiration and d/c oral diet if any
decline in mental or respiratory status
4) Speech therapy to follow
--- NOTE | 2023-12-18 16:51 | W.PN.UPDATE ---
Update Note
Progress Note Update
I saw and evaluated the patient. I reviewed the resident�s note and agree with findings and plan as documented in the resident�s note.
Patient without further dizziness. He is sitting in the chair. Maps mostly close to 65 but still requiring Levophed. He is voicing no specific complaints. Denies shortness of breath at rest. Requiring some oxygen. Chest sounds clear.
Abdomen benign. No chest pain.
Shock suspected septic-wean vasopressors as able. Appreciate ID input. Continue antibiotics per ID.
Bilateral nodular infiltrates-based on initial chest x-ray suspected pulmonary source was sepsis but the chest CT shows more nodular infiltrates raising concern for malignancy. He also has unexplained pancytopenia without neutropenia. I placed a
call to Dr. Gonzalez primary hematology oncology to see if they have any imaging showing progression of his metastatic parotid gland cancer. Await callback.
Improved H&H with transfusion. No neutropenia now. Continued thrombocytopenia. Aim to keep platelets more than 20,000.
Improving LOGAN.
Diet per speech eval.
Total time spent on today's encounter was 52 minutes which included time spent in counseling the patient/family regarding diagnosis and treatment plan as listed above, goals of care, and symptom management. Case was discussed with nursing staff,
specialists . All labs and imaging personally reviewed by me. Remainder the time spent in detailed review of previous records, lab data, imaging, and other medical provider documentation.
--- NOTE | 2023-12-18 20:33 | PTCARENOTE ---
Pt aox3, VSS, NSR on monitor, Trace edema to lower extremities, positive pulses. Pt remains on 7mcg Levophed for MAP >65 and 80ml/hr NS infusion. Lungs diminished throughout, 6L NC with O2 sats 92%, Abdomen soft non tender, continuing bowel
regiment, Pt did have an episode of vomiting shortly after taking medications. Zofran PRN. brought in home medication for left neck radiation wound, confirmed with Pharmacy. updated at bedside.
[2023-12-18] MEDS: NON-FORMULARY ITEM 1 APPLIC TOPICAL (21:19)
[2023-12-18] MEDS: DESYREL 50 MG PO (22:04)
--- NOTE | 2023-12-18 23:30 | PTCARENOTE ---
Pt oxygen saturations 86-87% on 6L NC, Midflow applied by RT 10L, pt O2 improved to 93%.
[2023-12-19] VITALS (46 sets, daily range): BP systolic 86–116; BP diastolic 51–91; BMI 22.8
[2023-12-19] MEDS: LEVOPHED 250 IV ×2 (01:03→16:09)
[2023-12-19] MEDS: ZOSYN 50 IV ×4 (04:04→22:33)
[2023-12-19] MEDS: NSS 1000 IV ×2 (04:06→16:10)
[2023-12-19 04:28] LABS: Hematocrit 26.4 % (39.0-52.0); Mean Corp Hgb Conc. 34.1 g/dL (33.0-37.0); Mean Corpuscular Hgb 31.1 pg (27.0-31.0); Mean Corpuscular Volume 91.3 fL (80.0-94.0); Platelet Count 30 10^3/uL (130-400); Red Blood Cell Count 2.89 10^6/uL (4.70-6.10); Red Cell Dist. Width 21.1 % (11.5-14.5); White Blood Cell Count 4.7 10^3/uL (4.8-10.8)
[2023-12-19 04:46] LABS: Blood Urea Nitrogen 57 mg/dl (9-20); Calcium 7.6 mg/dl (8.4-10.2); Carbon Dioxide 18 mmol/L (22-30); Chloride 110 mmol/L (98-107); Estimated Creatinine Clearance 36 ml/min; Glucose 158 mg/dl (70-99); Potassium 4.2 mmol/L (3.5-5.1); Sodium 134 mmol/L (135-145); eGFR 37.48
[2023-12-19 04:47] LABS: Troponin I 0.198 ng/ml
--- NOTE | 2023-12-19 05:47 | PTCARENOTE ---
Weaning Levo overnight, down to 5mcg.
[2023-12-19] MEDS: ROXICODONE 10 MG PO ×3 (06:29→22:34)
[2023-12-19] MEDS: ADVAIR HFA 115/21 MCG INHALER 2 PUFF INH ×2 (07:12→19:45)
--- NOTE | 2023-12-19 07:32 | W.PN.INTV ---
Today's Communication / Plan
Recommendations
Antibiotics
Wean pressors
Wean oxygen
Follow x-rays on occasion
Nutrition
Assessment
-
68-year-old male with underlying hypertension, hyperlipidemia, COPD, former [id number] smoker who has a left parotid gland adenocarcinoma status post radiation-20 cycles at [facility] within the last couple weeks with known C2 vertebral body metastatic
disease and rib mets admitted with sepsis-claims administrator consulted for sepsis/shock/critical care management 12/18/2023.
Sepsis with shock unresponsive to fluids requiring pressors
Pneumonia-aspiration versus widely metastatic disease to the lung parenchyma
Pancytopenia
Zytmun-utvhicahxp-bboisfjqup 7.9 status post transfusion
Leukopenia-WBC 4.3
Thrombocytopenia-platelet 36
Lactic acidosis
LOGAN
Mild hyperglycemia
Hypocalcemia
Conditions present prior to admission:
Hypertension.
Hyperlipidemia.
COPD-followed by primary-on Advair and albuterol as needed
Former smoker.
Carotid adenocarcinoma-stage IV with metastatic disease status post 20 cycles XRT-[facility] with known rib and vertebral mets.
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
BPH
Plan
Remains critically ill requiring pressors
Supplement oxygen as needed-currently on mid flow-attempt to wean
High flow oxygen if needed
BiPAP if necessary
Intubate and mechanically ventilate if necessary
Aspiration precautions per protocol
Nebulizers if needed
CT chest consistent with widely metastatic pulmonary parenchymal disease versus diffuse infection
Severe emphysematous changes noted on CT lungs
Cultures reviewed
Blood njmpcomc-evlblgj-ervmyzjf thus far
Urine cultures no growth
MRSA screen negative
Empiric antibiotics-vancomycin and Zosyn initiated-now on Zosyn alone
Infectious disease following-correspondence reviewed
Monitor leukocytosis
Decrease IV fluids
Trend lactate
Norepinephrine-attempt to wean
Monitor pancytopenia-improved
Transfuse as needed
Oncology evaluation
Follow-up renal function-serum creatinine increasing
Consider nephrology evaluation
DVT prophylaxis-mechanical with severe thrombocytopenia
Early nutrition if possible
Early mobilization/bedside range of motion
Eventual outpatient pulmonary jzyjzk-rm-yhhrub emphysematous changes on CT, last low-dose lung cancer screening CT 04/07/2018-likely will receive repetitive imaging studies for his parotid cancer follow-up at [facility]
Critical care statement: A total of 40 minutes of critical care time was provided for this patient today. This includes management of unstable vital signs, evaluation of the patient at bedside, reviewing the patient's pertinent medical records
including radiographs, pressor management, microbiology, laboratory evaluations, and discussion with primary team, consultants, pharmacy, nutrition, physical therapy, case management, charge nurse, critical care nursing, and respiratory therapy.
Diagnostic data:
Chest x-ray 12/17/2023-moderately extensive diffuse coarsening of interstitial markings throughout both lung edward suggesting diffuse interstitial pneumonia
CT klzik-ywq-sixx lung cancer screening 04/07/2018-no discrete pulmonary nodules or focal parenchymal consolidation
CT chest 12/17/2023-numerous nodular opacifications suspicious for pulmonary metastatic disease, progression of osteoblastic metastatic disease in the chest, severe COPD
CT head 12/17/2023-no acute intracranial abnormalities, left mastoid effusion,
PET scan 08/19/2023-FDG avid left parotid gland mass with SUV max of 11.2 with adjacent FDG avid lymph nodes as well as posterior and anterior cervical chain in the left supraclavicular area, FDG avidity in the C2 vertebral process, few scattered
small foci of FDG avid B in ribs bilaterally
Subjective Dataa
Subjective Data
Date of Service:
Date of Service: December 19, 2023
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
Subjective:
Feels about the same, has dyspnea with minimal exertion, on mid flow oxygen, cough mostly nonproductive, no chest pain, pleurisy or abdominal pain
Review of Systems
General: Other (Per HPI)
Objective Data
Data Reviewed
Vital Signs / I&O / Oxygen:
Vital Signs
Temp Pulse Resp BP Pulse Ox
98.4 F 92 18 92/58 97
12/19/23 05:43 12/19/23 07:12 12/19/23 07:12 12/19/23 05:30 12/19/23 07:12
Intake and Output
12/18/23 12/19/23 12/20/23
06:59 06:59 06:59
Intake Total 2027.5 / 2182.5 4174.6 / 4174.6
Output Total 475 / 475 925 / 925
Balance 1552.5 / 1707.5 3249.6 / 3249.6
SaO2 97
Nasal Cannula flow liters per 8
minute
Physical Exam
General: Respiratory Distress (Mild)
HEENT: Normocephalic, Anicteric, Moist Mucous Membranes and Other (Left facial droop)
Cardiovascular: Regular Rhythm and Murmur
Respiratory: Clear (Diminished breath sounds and prolonged expiratory time), Wheeze (n), Crackles (Rare basilar), Rhonchi (n), Non-Labored Respirations, Accessory Resp Muscle Use (n) and Stridor
GI: Soft, Non Distended and Non Tender
Neurology: Awake, Alert and No Motor Deficits
Skin: Good Color, Cyanosis (n), Jaundice (n) and Rash (n)
Labs/Micro/Reports
Lab Data
12/19/23 04:03
12/19/23 04:03
Microbiology
12/17/23 15:16 Blood/Venous Blood Culture - Preliminary
No Growth in 24 hours- Final report to follow
12/17/23 22:21 Nose Nasal Screen MRSA (PCR) - Final
MRSA not detected - performed by PCR methodology.
[2023-12-19] MEDS: FLOMAX 0.4 MG PO ×2 (08:20→20:20)
[2023-12-19] MEDS: NON-FORMULARY ITEM 1 APPLIC TOPICAL ×2 (08:20→20:19)
[2023-12-19] MEDS: NEURONTIN 300 MG PO ×3 (08:21→22:34)
[2023-12-19] MEDS: SENOKOT 8.6 MG PO ×2 (08:21→20:20)
[2023-12-19] MEDS: CRESTOR 20 MG PO (08:21)
[2023-12-19] MEDS: MIRALAX 17 GRAMS PO (08:21)
[2023-12-19] MEDS: COLACE 100 MG PO ×2 (08:21→20:20)
[2023-12-19] MEDS: POLYSPORIN OINTMENT 1 APPLIC TOPICAL ×2 (08:35→20:20)
--- NOTE | 2023-12-19 08:45 | PTCARENOTE ---
Assumed care of pt at 0715 following shift report. Pt awake and sitting up in bed. Denies c/o pain or SOB. Pox 90-92% on O2 @ 8l/min via midflow. Levophed gtt infusing at 5 mcg/min and IVF of NS @ 80ml/hr via Rt UE PICC. Physical assessment
completed. Pt assisted in ordering breakfast although pt reports poor appetite. Education provided on importance of nutrition in wound healing. Lt neck/posterior wound care completed as ordered (see MAR). Comfort care provided. Call lyndsey w/in pt
reach and safe environment maintained.
--- NOTE | 2023-12-19 09:04 | W.PN.ID1 ---
Date of Service
Date of Service: December 19, 2023
Today's Communication
update echo
continue zosyn/levaquin
Assessment / Plan
Shock - suspected septic
Pancytopenia - improved
LOGAN +/- CKD
left parotid gland adenocarcinoma - not on immunosuppressive drugs
- blood cultures x2 in progress - no growth to date
- ua with mild pyuria, suggestion of contamination, asymptomatic
- CT chest - numerous mets, no definite new infiltrates
- covid ag - negative
- L mastoid effusion noted on CT head but no significant symptom in this area - already on effective empiric coverage
- update echo - ordered
- continue zosyn
- continue levaquin for now - we have limited clinical data on this patient with extensive health care exposure previously
- follow clinically, patient remains critically ill
Chief Complaint
-: Other (shock)
Subjective / Review of Systems
remains afebrile
norepi still at 5 mcg/min
mild leukopenia
increased cr t o1.9
covid ag neg
no complaints beyond general malaise
adenocarcinoma lesion on the neck without surroudning erythema, warmth, odor or drainage
Vital Signs / Physical Exam
Vital Signs
Vital Signs
Temp Pulse Resp BP Pulse Ox
98.4 F 92 18 92/58 97
12/19/23 05:43 12/19/23 07:12 12/19/23 07:12 12/19/23 05:30 12/19/23 07:12
Physical Exam
Constitutional: No Acute Distress
Cardiovascular: Regular Rate and S1/S2; Negative Murmur or Rub
Pulmonary: Clear and Symmetric; Negative Wheezes or Rales
Gastrointestinal: Soft, Non Tender, Non Distended and Normal Bowel Sounds
Skin: Warm and Dry; Negative Rash or Jaundice
Wound: Other (adenocarcinoma lesion on the neck without surroudning erythema, warmth, odor or drainage)
Lines: PICC (PICC funcitonal no erythema, warmth or tenderness)
Objective Data
Lab Data
Lab Results
12/19/23 04:03
12/19/23 04:03
PT 16.2 Sec (11.4-14.6) H 12/17/23 20:37
INR 1.29 12/17/23 20:37
APTT 39.0 Sec (23.4-35.0) H 12/17/23 20:37
Estimated Creat Clear 36 ml/min 12/19/23 04:03
Lactic Acid Cancelled 12/18/23 01:58
Total Bilirubin 1.0 mg/dl (0.2-1.3) 12/18/23 03:29
AST 94 U/L (17-59) H 12/18/23 03:29
ALT 18 U/L (0-50) 12/18/23 03:29
Alkaline Phosphatase 413 U/L (38-126) H 12/18/23 03:29
Most recent labs reviewed.
Micro Results:
12/17/23 15:16 Blood Culture - Preliminary
Blood/Venous No Growth in 24 hours- Final report to follow
12/18/23 12:57 Blood Culture - Pending
Blood/Venous
12/17/23 22:21 Nasal Screen MRSA (PCR) - Final
Nose MRSA not detected - performed by PCR methodology.
12/17/23 23:15 Urine Culture - Pending
Urine
Care Review
Plan reviewed with: Nurse (symptoms, compalints)
--- NOTE | 2023-12-19 09:29 | CON.ONC ---
Impression
Impression
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
Pneumonia
Hypertension
Evidence of pulmonary nodule suggesting progressive disease
Plan
Plan
Supportive care
Treatment of pneumonia/sepsis as per primary team with broad-spectrum antibiotics
Reviewed treatment plan with Donny Gonzalez when available
Monitor CBC for progressive cytopenias
Transfuse platelets<10K or with atypical bleeding
Will follow along
Patient History
History of Present Illness
Mr Echeverria is a 68 year old male with past medical history notable for L parotid gland adenocarcinoma (last radiation 1-2 weeks ago, no chemotherapy, c/b left 7th nerve palsy and bone mets known presenting here for weakness - new onset inability to
ambulate due to weakness and dizziness, fatigue and unintentional weight loss which he relates to poor appetite. He has C2 vertebral body metastasis and rib metastases but no known history of bone marrow infiltration. He has had 20 radiation
treatments at [facility]. His cancer team including rad oncology, ENT, and med oncology are at [facility]. Patient denied any fevers, headaches, or new vision changes. Patient required vasopressors in the emergency
department. Patient denied any coughing of food but did admit to having aspiration at times. Chest x-ray conducted in the emergency department showed diffuse coarsening of the interstitial markings throughout both lungs which was new compared to
prior studies�suggesting diffuse interstitial pneumonia. CT CAT scan indicates multiple pulmonary nodules consistent with metastatic disease.
Past-Medical/Surgical History
Past Medical History
Hypertension. Hyperlipidemia. COPD. Former smoker. Carotid adenocarcinoma with metastatic disease status post 20 cycles XRT-HUP with known rib and vertebral mets. 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
Social History
Tobacco: Former Smoker [id number] quit 2 years ago
Alcohol: None
Drug: None
Living: With Family
Occupational Exposures: No known asbestos exposure
Environmental Exposures: No known tuberculosis exposure
Family History
Family History: Mother-COPD
Patient Medication
�Medication �Instructions �Recorded �Confirmed �Last Taken �Type
rosuvastatin 20 mg tablet 20 mg PO DAILY High Cholesterol 08/03/23 12/17/23 12/17/23 History
tamsulosin 0.4 mg capsule 0.4 mg PO BID Urinary Issue 08/03/23 12/17/23 12/17/23 History
acetaminophen 500 mg tablet 1,000 mg PO Q6HPRN PRN mild pain 12/17/23 12/17/23 12/16/23 History
(Tylenol Extra Strength)
calcium acetate 952 mg-aluminum 1 applic topical BID cancer 12/17/23 12/17/23 12/17/23 History
sulfate 1,347 mg topical powder treatment wounds
packet ([place])
fluticasone 250 mcg-salmeterol 50 1 inh inhalation R BID 12/17/23 12/17/23 12/17/23 History
mcg/dose blistr powdr for Lung/Breathing Issues
inhalation (Advair Diskus)
gabapentin 300 mg capsule 300 mg PO TID Neurological 12/17/23 12/17/23 12/17/23 History
Condition
ibuprofen 200 mg tablet (Advil) 600 mg PO Q6HPRN PRN mild pain 12/17/23 12/17/23 12/16/23 History
metoprolol tartrate 25 mg tablet 25 mg PO BID Blood Pressure 12/17/23 12/17/23 12/17/23 History
neomycin-bacitracn Zn-polymyxn 3.5 1 applic topical BID cancer 12/17/23 12/17/23 12/17/23 History
mg-400 unit-5,000 unit top oint treatment wounds
pkt (Neosporin([id number]))
ondansetron HCl 8 mg tablet 8 mg PO Q8HPRN PRN nausea 12/17/23 12/17/23 12/17/23 History
oxycodone 10 mg tablet 10 mg PO Q4HPRN PRN severe pain 12/17/23 12/17/23 12/17/23 History
trazodone 50 mg tablet 50 mg PO HS Sleep 12/17/23 12/17/23 12/16/23 History
valsartan 80 mg tablet 80 mg PO DAILY Blood Pressure 12/17/23 12/17/23 12/17/23 History
Active Medications
Generic Name Dose Route Start Last Admin
Trade Name Freq PRN Reason Stop Dose Admin
Acetaminophen 1,000 mg 12/17/23 19:58
Acetaminophen 500 Mg Tablet PO 01/14/24 19:57
Q6HPRN PRN
mild pain
Bacitracin/Polymyxin B Sulfate 0 applic 12/17/23 22:00 12/19/23 08:35
Bacitracin/Polymyxin B (Ointment) Unit Dose Packet TOPICAL 1 applic
BID MARISELA Administration
Docusate Sodium 100 mg 12/18/23 10:00 12/19/23 08:21
Docusate Sodium 100 Mg Capsule PO 01/15/24 09:59 100 mg
BID MARISELA Administration
Gabapentin 300 mg 12/17/23 22:00 12/19/23 08:21
Gabapentin 300 Mg Capsule PO 01/14/24 21:59 300 mg
TID MARISELA Administration
Piperacillin Sod/Tazobactam Sod 3.375 gram in 50 mls @ 100 mls/hr 12/17/23 22:00 12/19/23 04:04
Zosyn IV 50 mls
Q6H MARISELA Administration
Sodium Chloride 1,000 mls @ 80 mls/hr 12/17/23 19:58 12/19/23 04:06
Nss IV 1,000 mls
.[id number] MARISELA Administration
Norepinephrine Bitartrate 4 mg in 250 mls @ 0 mls/hr 12/17/23 19:58 12/19/23 01:03
Levophed IV 250 mls
PER PROTOCOL MARISELA Administration
Protocol
Per Protocol
Levofloxacin 750 mg 12/18/23 12:00 12/18/23 11:29
Levofloxacin 750 Mg Tablet PO 750 mg
Q48H MARISELA Administration
Calcium Acetate- 0 applic 12/18/23 20:00 12/19/23 08:20
Aluminum Sulf [ TOPICAL 01/15/24 19:59 1 applic
[place]] [id number] BID MARISELA Administration
Mg Powder
Ondansetron HCl 4 mg 12/17/23 19:58 12/18/23 15:48
Ondansetron 4 Mg/2 Ml Vial IV 01/14/24 19:57 4 mg
Q6HPRN PRN Administration
NAUSEA/VOMITING
Oxycodone HCl 10 mg 12/17/23 22:00 12/19/23 06:29
Oxycodone 10 Mg Regular Release Tablet PO 12/31/23 21:59 10 mg
Q8H MARISELA Administration
Polyethylene Glycol 17 grams 12/19/23 08:00 12/19/23 08:21
Polyethylene Glycol Powder 17 Grams Packet PO 01/16/24 07:59 17 grams
DAILY MARISELA Administration
Rosuvastatin Calcium 20 mg 12/18/23 08:00 12/19/23 08:21
Rosuvastatin (Crestor) 20 Mg Tablet PO 01/15/24 07:59 20 mg
DAILY MARISELA Administration
Fluticasone/Salmeterol 2 puff 12/17/23 20:00 12/19/23 07:12
Advair Hfa 115/21 Inhaler INH 01/14/24 19:59 2 puff
R BID MARISELA Administration
Protocol
Sennosides 8.6 mg 12/18/23 10:00 12/19/23 08:21
Sennosides (Senokot) 8.6 Mg Tablet PO 01/15/24 09:59 8.6 mg
BID MARISELA Administration
Sodium Chloride 0 flush 12/17/23 21:00
Sodium Chloride 0.9% (Flush) Syringe IV 01/14/24 20:59
PER PROTOCOL MARISELA
Tamsulosin HCl 0.4 mg 12/17/23 20:00 12/19/23 08:20
Tamsulosin 0.4 Mg Capsule PO 01/14/24 19:59 0.4 mg
BID MARISELA Administration
Trazodone HCl 50 mg 12/17/23 22:00 12/18/23 22:04
Trazodone 50 Mg Tablet PO 01/14/24 21:59 50 mg
HS MARISELA Administration
Review of Systems
-
12 point review of systems without additional complaint plaints other than those reviewed in the HPI.
Physical Exam
Labs
Lab Results
WBC 4.7 10^3/uL (4.8-10.8) L 12/19/23 04:03
RBC 2.89 10^6/uL (4.70-6.10) L 12/19/23 04:03
Hgb 9.0 g/dL (13.0-18.0) L 12/19/23 04:03
Hct 26.4 % (39.0-52.0) L 12/19/23 04:03
MCV 91.3 fL (80.0-94.0) 12/19/23 04:03
MCH 31.1 pg (27.0-31.0) H 12/19/23 04:03
MCHC 34.1 g/dL (33.0-37.0) 12/19/23 04:03
RDW 21.1 % (11.5-14.5) H 12/19/23 04:03
Plt Count 30 10^3/uL (130-400) L 12/19/23 04:03
MPV 11.0 fL (7.4-10.4) H 12/19/23 04:03
Abs Immat Gran (auto) 0.2 10^3/uL (0-0.05) H 12/17/23 13:25
Absolute Neuts (auto) 3.4 10^3/uL (1.4-6.5) 12/17/23 13:25
Absolute Lymphs (auto) 0.3 10^3/uL (1.2-3.4) L 12/17/23 13:25
Absolute Monos (auto) 0.4 10^3/uL (0.1-0.6) 12/17/23 13:25
Absolute Eos (auto) 0.0 10^3/uL (0-0.7) 12/17/23 13:25
Absolute Basos (auto) 0.0 10^3/uL (0-0.2) 12/17/23 13:25
Immature Gran % 4.0 % (0-0.5) H 12/17/23 13:25
Neutrophils % 80.4 % (42.2-75.2) H 12/17/23 13:25
Lymphocytes % 7.0 % (20.5-51.1) L 12/17/23 13:25
Monocytes % 8.2 % (1.7-9.3) 12/17/23 13:25
Eosinophils % 0.2 % (0-6) 12/17/23 13:25
Basophils % 0.2 % (0-2) 12/17/23 13:25
Creatinine 1.9 mg/dL (0.7-1.3) H 12/19/23 04:03
Vital Signs
Vital Signs
Temp Pulse Resp BP Pulse Ox
98.4 F 96 12 96/57 93
12/19/23 05:43 12/19/23 09:00 12/19/23 09:00 12/19/23 09:00 12/19/23 09:00
--- NOTE | 2023-12-19 10:29 | W.PN.HOSP.TC ---
Today's Communication/Plan
-
Patient is no longer afebrile. Norepinephrine continues at 5 mcg/minute. Creatinine is increased to 1.9, kidney and bladder ultrasound ordered. Will continue to monitor and wean pressors and oxygen if indicated.
Assessment / Plan
Assessment / Plan
- Clinical shock due to suspected sepsis: Monitoring
significant hypotension requiring vasopressors in the emergency department
Patient admitted to aspiration and chest x-ray shows signs of pneumonia with extensive diffuse coarsening of the interstitial markings throughout both lungs -clinical concern is either aspiration pneumonia/hospital acquired pneumonia versus other
interstitial lung processes.
Blood culture drawn -second set of blood cultures sent
Continue Levophed and fluid -4 Levophed given since admission
Vancomycin and Zosyn started
Infectious diseases consulted -MRSA screen negative so vancomycin discontinued. They recommended continuing Zosyn for the present time. Levaquin added due to limited clinical data on this patient with extensive healthcare exposure previously.
Patient will be kept on clear liquids and a speech therapy eval has been ordered.
- Pancytopenia: Monitoring -
1 unit of PRBCs given due to severe anemia
Trend H&H, white blood cells, and platelets -hemoglobin and hematocrit stable, white blood cells now within normal limits. Thrombocytopenia ongoing.
Will touch base with primary oncologist to see what his blood counts were prior to his presentation in the emergency department.
-Lactic acidosis: Monitoring
May be secondary to sepsis -will continue to trend with hemodynamic support
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
CT of the head ordered.
-Acute kidney injury: Monitoring
Upon admission the patient has an elevated BUN of 72 and creatinine of 1.8. No acidosis and no significant fluid overload clinically. Patient's renal function baseline is not known.
Follow creatinine
Give hemodynamic support with fluids and vasopressors
bladder scan protocol
Creatinine is 1.9 on 12/18 - kidney and bladder ultrasound ordered.
-Essential hypertension: Monitoring
Patient has a history of hypertension on oral medication which we will hold. EKG shows nonspecific ST changes. Will check troponins and consider echocardiogram.
-Hypoxic respiratory insufficiency: Monitoring
Suspected secondary to underlying lung disease. Support with oxygen for now and treat possible pneumonia.
High flow oxygen if needed
BiPAP if necessary
Aspiration precautions
Nebulizers if needed
CT of chest consistent with widely metastatic pulmonary parenchymal disease versus diffuse infection
Severe emphysematous changes noted on CT lung
DVT prophylaxis: Sequential compression devices
Full code
Anticipated Discharge: > 48 hours
Subjective/Interval History
-
Date of Service: December 19, 2023
Met with patient at the bedside. He states that he feels great and is in positive spirits. He looks forward to his family members visiting him later on today. He states that he has not had a bowel movement in a couple days and would like to have
something to help him have an easier movement.
Objective Data
-
Labs:
Laboratory Results
12/19/23
04:03
WBC 4.7 L
Hgb 9.0 L
Hct 26.4 L
Plt Count 30 L
Sodium 134 L
Potassium 4.2
Chloride 110 H
Carbon Dioxide 18 L
BUN 57 H
Creatinine 1.9 H
Glucose 158 H
Calcium 7.6 L
Vital Signs:
Vital Signs
Temp Pulse Resp BP Pulse Ox
98.4 F 96 12 96/57 93
12/19/23 05:43 12/19/23 09:00 12/19/23 09:00 12/19/23 09:00 12/19/23 09:00
I&O
12/18/23 12/19/23 12/20/23
06:59 06:59 06:59
Intake Total 2027.5 / 2182.5 4174.6 / 4273.4 197.6 / 197.6
Output Total 475 / 475 925 / 925
Balance 1552.5 / 1707.5 3249.6 / 3348.4 197.6 / 197.6
Review of Systems
-
History Source: Patient
Constitutional: Reports No Symptoms
Respiratory: Reports No Symptoms
Cardiac: Reports No Symptoms
Abdomen/GI: Reports No Symptoms
Breast: Reports No Symptoms
Genitourinary: Reports No Symptoms
Neuro: Reports Other (Left-sided facial droop.)
Endocrine: Reports No Symptoms
Hematologic / Lymphatic: Reports No Symptoms
Allergy / Immunology: Reports No Symptoms
Physical Exam
-
General: Well Developed, Well Nourished, No Apparent Distress and Comfortable
HEENT: Normocephalic, Atraumatic and Other (Painless serous/purulent fluid drainage from left ear canal)
Respiratory: Clear to Auscultation
Cardiac: Regular Rhythm and S1/S2
Breast: Deferred by me
GI: Soft, Nontender, Nondistended and Normal Bowel Sounds
Rectal: Deferred by Provider
Genito-urinary: Deferred by me
Musculoskeletal: No Clubbing, No Cyanosis and No Edema
Skin: Warm, Dry and Other (Prominent skin lesion over the left parotid)
Neuro: Nonfocal/Grossly Intact
--- NOTE | 2023-12-19 11:16 | PTCARENOTE ---
Pt OOB to chair for approximately 1hr before requesting to return to bed. Pt returned to bed and pillow placed to relieve sacral pressure w/ pt reported improvement. Pt's sister in law here to visit and encouraging pt to eat- additional breakfast
items ordered.
--- NOTE | 2023-12-19 11:21 | W.PN.UPDATE ---
Addendum entered and electronically signed by Anthony Madrid MD 12/19/23 11:31:
LOGAN on admission noted. was improving with fluid support and hemodynamic support but jump in creatinine from yesterday noted. Bladder scan shows no significant retention. Continue to follow creatinine and if continued rise will consult
nephrology.
Original Note:
Update Note
Progress Note Update
Patient sitting up in his bed without any specific complaints.
His dizziness is improved. No chest pain or shortness of breath. No fever or chills.
No nausea vomiting.
Afebrile. Still requiring vasopressors on Levophed at 5 mics. Still requiring high oxygen via nasal cannula. No respiratory distress at rest.
Chest sounds clear to me today.-S1 plus S2 heard regular.
Abdomen benign.
Clinical shock suspected septic. Cultures have been negative so far. Unclear source. ID following. Continue with antibiotics for now.
Patient also has nonspecific ST-T segment changes on admission with a troponin very which is trending down. He was asymptomatic without chest pains or prior hx of CAD. with persistent need of Levophed for hypotension will get a cardiology eval and
echocardiogram .
I spoke with the primary oncologist Dr. Gonzalez yesterday no prior known pancytopenia from cancer or metastatic spread to lungs. Will consult oncology here for further evaluation.
Total time spent on today's encounter was 52 minutes which included time spent in counseling the patient regarding diagnosis and treatment plan as listed above, goals of care, and symptom management. Case was discussed with nursing staff,
specialists . All labs and imaging personally reviewed by me. Remainder the time spent in detailed review of previous records, lab data, imaging, and other medical provider documentation.
--- NOTE | 2023-12-19 12:06 | PTCARENOTE ---
Pt's visiting at bedside and assisting pt w/ breakfast. Bladder scan - 304ml. Pt denies need to void at this time- encouraged to attempt to void in near future if able and will continue to monitor. Updated on plan of care, questions
answered. Pt denies any c/o pain or SOB. Tapering Levophed as able while maintaining MAP >65. No additional changes from previous assessment findings.
[2023-12-19 13:54] LABS: Cortisol, Random 19.2 ug/dl
--- NOTE | 2023-12-19 14:40 | PTCARENOTE ---
Pt's fingers on both hands dusky, Rt hand more than left w/ Rt hand slightly cooler than Lt. Radial pulses bilaterally by doppler. Pt denies pain/numbness. Levophed presently at 3 mcg/min. Dr Silva notified of findings- no new orders received. Pt
OOB in chair visiting w/ brother. No changes noted from previous assessment findings.
--- NOTE | 2023-12-19 14:48 | CON.CAR ---
Consultation
Consultation Request
Date/Time Consultation Requested: 12/19/2023 12:00
Date/Time Consultation Performed: 12/19/2023 1400
Requesting Provider: Dr. Madrid
Performing Provider: Dr. Marquez
Reason for Consultation: Abnormal troponin hypotension
Medical History
-
History of Present Illness:
68-year-old woman with past medical history noted below. Patient admitted with sepsis 12/18/2023 patient under the care of the hospitalist service along with consultations from pulmonary/critical care, ID and oncology. Patient being treated for
pneumonia/sepsis. Blood cultures pending. Remains on pressors on Levophed. Troponins were elevated when checked on 12/18/2023. First troponin was the highest at 0.4 and they have trended down since. Labs notable for creatinine ranging from
1.5-1.[address] 12/17/2023
1. Numerous nodular opacities throughout both lungs considered most suspicious for pulmonary metastatic disease in the setting of known metastatic parotid adenocarcinoma.
2. Progression of osteoblastic metastatic disease in the chest.
3. Severe chronic obstructive pulmonary disease.
Past medical history
Hypertension
hypercholesterolemia
COPD,
history of smoking
Parotid gland adenocarcinoma adenocarcinoma with metastatic disease status post XRT known rib and vertebral mets
7th nerve palsy from radiation
ECG 12/17/20[address] sinus rhythm with nonspecific ST abnormality in the anterior/anterolateral and inferior leads.
echocardiogram 05/28/2022 normal biventricular size and function no significant valvular disease
Lexiscan nuclear perfusion stress test 06/12/2020 normal perfusion no ischemia ejection fraction greater than 75%
Social History
Tobacco: Former Smoker
Family History
Family History: CAD (Father had CAD) and Other ( )
Allergies / Home Medications
Allergy/AdvReac Type Severity Reaction Status Date / Time
mupirocin AdvReac Vomiting Verified 12/17/23 21:17
�Medication �Instructions �Recorded �Confirmed �Type
rosuvastatin 20 mg tablet 20 mg PO DAILY High Cholesterol 08/03/23 12/17/23 History
tamsulosin 0.4 mg capsule 0.4 mg PO BID Urinary Issue 08/03/23 12/17/23 History
acetaminophen 500 mg tablet 1,000 mg PO Q6HPRN PRN mild pain 12/17/23 12/17/23 History
(Tylenol Extra Strength)
calcium acetate 952 mg-aluminum 1 applic topical BID cancer 12/17/23 12/17/23 History
sulfate 1,347 mg topical powder treatment wounds
packet ([place])
fluticasone 250 mcg-salmeterol 50 1 inh inhalation R BID 12/17/23 12/17/23 History
mcg/dose blistr powdr for Lung/Breathing Issues
inhalation (Advair Diskus)
gabapentin 300 mg capsule 300 mg PO TID Neurological 12/17/23 12/17/23 History
Condition
ibuprofen 200 mg tablet (Advil) 600 mg PO Q6HPRN PRN mild pain 12/17/23 12/17/23 History
metoprolol tartrate 25 mg tablet 25 mg PO BID Blood Pressure 12/17/23 12/17/23 History
neomycin-bacitracn Zn-polymyxn 3.5 1 applic topical BID cancer 12/17/23 12/17/23 History
mg-400 unit-5,000 unit top oint treatment wounds
pkt (Neosporin([id number]))
ondansetron HCl 8 mg tablet 8 mg PO Q8HPRN PRN nausea 12/17/23 12/17/23 History
oxycodone 10 mg tablet 10 mg PO Q4HPRN PRN severe pain 12/17/23 12/17/23 History
trazodone 50 mg tablet 50 mg PO HS Sleep 12/17/23 12/17/23 History
valsartan 80 mg tablet 80 mg PO DAILY Blood Pressure 12/17/23 12/17/23 History
Physical Exam
Vital Signs
Temp Pulse Resp BP Pulse Ox
98.4 F 96 12 96/57 93
12/19/23 05:43 12/19/23 09:00 12/19/23 09:00 12/19/23 09:00 12/19/23 09:00
Lab Results
12/19/23 04:03
12/19/23 04:03
Troponin I 0.198 ng/ml H* 12/19/23 04:03
Physical Exam
General: Other (Awake alert cooperative. No distress comfortable sitting in chair)
HEENT: Other (Facial asymmetry related to 7th nerve palsy pupils are equal left-sided neck has a open area under left ear)
Respiratory: Other (Fine crackles at bases bilaterally no wheezes or rhonchi)
Cardiac: Regular Rhythm and Other (No murmur rub or gallop)
GI: Soft, Non Tender, Non Distended, Normal Bowel Sounds and Other (No mass detected but somewhat limited due to patient sitting upright in chair)
Musculoskeletal: No Clubbing and No Edema
Skin: Warm, Dry and Other
Neuro: Awake and Alert
Psych: Calm and Other (Cooperative)
Impression / Plan
-
Elevated troponin. 0.4 this was the peak troponin on presentation. Exact etiology unclear but may be non-FL troponin versus type II FL in the setting of hypotension and suspected sepsis..
-Continue supportive treatment
-Antibiotics as directed by primary team.
-Wean Levophed as tolerated
-Echocardiogram 12/21/2023
.
Hypotension. Patient with presumed sepsis on presentation now on Levophed.. Low blood pressure likely related to infection no other cause noted at this time. Possibility of pulmonary embolism is always a consideration and patient with
malignancy.. Patient had CT but did not have contrast. Of note patient has renal insufficiency. Currently patient's respiratory status is stable and appears to be responding to current treatment. Will continue with current therapy.
-Echocardiogram.
-Pressor requirements are slowly trending down
-Continue current therapy and wean Levophed as tolerated.
-Consider lower extremity ultrasound
.
Pneumonia. Patient with metastatic disease along with infiltrates
-Treatment as directed by pulmonary/ID and primary team
.
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
.
Anemia. Hemoglobin 9. Continue to monitor. No evidence of acute bleeding.
Data Reviewed
-
EKG: Discussed with Physician and Discussed with Nurse
CT Scan: Report Reviewed by me
Medical Tests (Nuc Med, Echo etc): Report Reviewed by me
Labs: Labs Reviewed by me
--- NOTE | 2023-12-19 16:30 | PTCARENOTE ---
Pt OOB in chair. No changes noted or new complaints received. Remains on O2 at 8l/min via Midflow. Pox 91-96%. FRIEND, audible expiratory wheezes noted w/ transfer from bed to chair. Tapering Levophed gtt while maintaining MAP >65. Call solorio remains in
reach and safe environment maintained.
--- NOTE | 2023-12-19 20:00 | PTCARENOTE ---
Pt AOx3, very forgetful especially short term, VSS, remains on Levo 8mcg/hr MAP > 65. NSR/ST on monitor, LE edema Positive pulses with doppler, finger tips dusky, Oxygen saturation difficult to obtain, placed on ear. 8L mid flow. Lungs diminished.
Q2 turns with pillows. Pt offers no complaints at this time.
[2023-12-19] MEDS: DESYREL 50 MG PO (22:33)
[2023-12-20] VITALS (42 sets, daily range): BP systolic 76–115; BP diastolic 49–88; BMI 23.6
--- NOTE | 2023-12-20 00:30 | PTCARENOTE ---
Assessment unchanged, pt sleeping comfortably in bed.
[2023-12-20] MEDS: ZOSYN 50 IV ×4 (03:57→21:00)
[2023-12-20] MEDS: NSS 1000 IV (04:00)
[2023-12-20 04:16] LABS: Hematocrit 25.9 % (39.0-52.0); Hemoglobin 8.9 g/dL (13.0-18.0); Mean Corp Hgb Conc. 34.4 g/dL (33.0-37.0); Mean Corpuscular Hgb 32.1 pg (27.0-31.0); Mean Corpuscular Volume 93.5 fL (80.0-94.0); Platelet Count 25 10^3/uL (130-400); Red Blood Cell Count 2.77 10^6/uL (4.70-6.10); Red Cell Dist. Width 20.2 % (11.5-14.5); White Blood Cell Count 4.1 10^3/uL (4.8-10.8)
[2023-12-20 04:30] LABS: Blood Urea Nitrogen 64 mg/dl (9-20); Calcium 7.6 mg/dl (8.4-10.2); Carbon Dioxide 16 mmol/L (22-30); Chloride 110 mmol/L (98-107); Estimated Creatinine Clearance 29 ml/min; Glucose 118 mg/dl (70-99); Potassium 4.4 mmol/L (3.5-5.1); Sodium 132 mmol/L (135-145); eGFR 26.96
[2023-12-20] MEDS: SODIUM BICARBONATE 1150 MEQ IV ×2 (05:26→19:38)
[2023-12-20] MEDS: ROXICODONE 10 MG PO ×3 (05:52→21:00)
--- NOTE | 2023-12-20 07:21 | W.PN.CD ---
Today's Communication / Plan
-
worsening renal function creatinine 2.5 some of this may be related to initial insult from hypotension but patient's blood pressure is on levo were running relatively low. Although pressures seem to be close to target MAP I he has had a significant
number of systolics in the 80s and I would recommend running a higher pressure considering the rising creatinine.
Plan for echo on 12/21/2023
Impression / Plan
-
Elevated troponin. 0.4 this was the peak troponin on presentation. Exact etiology unclear but may be non-AZ troponin versus type II AZ in the setting of hypotension and suspected sepsis..
-Continue supportive treatment
-Antibiotics as directed by primary team.
-Wean Levophed as tolerated
-Echocardiogram 12/21/2023
.
Hypotension. Patient with presumed sepsis on presentation now on Levophed.. Low blood pressure likely related to infection no other cause noted at this time. Possibility of pulmonary embolism is always a consideration and patient with
malignancy.. Patient had CT but did not have contrast. Of note patient has renal insufficiency. Currently patient's respiratory status is stable and appears to be responding to current treatment. Will continue with current therapy.
-Echocardiogram.
-Pressor requirements are slowly trending down
-Continue current therapy and wean Levophed as tolerated.
-Consider lower extremity ultrasound
.
Pneumonia. Patient with metastatic disease along with infiltrates
-Treatment as directed by pulmonary/ID and primary team
.
LOGAN - worsening. May be from initial insult from hypotension. Additonal txper primary team.
.
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
.
Anemia. Hemoglobin 9. Continue to monitor. No evidence of acute bleeding.
Physical Exam
Vital Signs/Labs
Vital Signs
Temp Pulse Resp BP Pulse Ox
97.7 F 88 10 91/53 93
12/20/23 07:00 12/20/23 06:15 12/20/23 06:15 12/20/23 06:00 12/20/23 06:00
12/19/23 12/20/23 12/21/23
06:59 06:59 06:59
Actual Weight 74.1 kg 76.8 kg
12/20/23 03:56
12/20/23 03:56
PT 16.2 Sec (11.4-14.6) H 12/17/23 20:37
INR 1.29 12/17/23 20:37
APTT 39.0 Sec (23.4-35.0) H 12/17/23 20:37
Magnesium 2.3 mg/dl (1.6-2.3) 12/18/23 03:29
LAB Results
12/18/23 12/18/23 12/18/23
03:29 09:38 15:26
Troponin I 0.409 H* 0.310 H* 0.232 H* D
12/19/23 12/19/23
00:15 04:03
Troponin I Cancelled 0.198 H*
Physical Exam
Constitutional: No acute distress
EENT: Anicteric
Cardiovascular: Rhythm & rate is regular
Respiratory: Wheeze Absent
GI: Soft
Neuro/Psych: Alert
Data Reviewed
-
Date of Service: December 20, 2023
Medical Decision Making: Reviewed Test Results
Medical Tests (PFT, Pathology etc): Report Reviewed by me
Labs: Labs Reviewed by me
[2023-12-20] MEDS: NEURONTIN 300 MG PO ×3 (07:36→21:00)
[2023-12-20] MEDS: POLYSPORIN OINTMENT 1 APPLIC TOPICAL ×2 (07:36→21:00)
[2023-12-20] MEDS: FLOMAX 0.4 MG PO ×2 (07:36→20:59)
[2023-12-20] MEDS: COLACE 100 MG PO ×2 (07:36→20:59)
[2023-12-20] MEDS: SENOKOT 8.6 MG PO ×2 (07:36→21:00)
[2023-12-20] MEDS: MIRALAX 17 GRAMS PO (07:36)
[2023-12-20] MEDS: CRESTOR 20 MG PO (07:36)
[2023-12-20] MEDS: NON-FORMULARY ITEM TOPICAL ×2 (07:37→20:59)
[2023-12-20] MEDS: ADVAIR HFA 115/21 MCG INHALER 2 PUFF INH ×2 (07:42→19:49)
--- NOTE | 2023-12-20 08:16 | W.PN.UPDATE ---
Update Note
Progress Note Update
I saw and evaluated the patient. I reviewed the resident�s note and agree with findings and plan as documented in the resident�s note.
Patient today without complaints.
Slept ok per pt.
Denying shortness of breath despite requiring oxygen via nasal cannula. Denies any chest pain.
No nausea vomiting. States he is tolerating diet.
Denies abdominal pain.
He has great positive attitude and equanimous in this critical situation !
Afebrile
Remains on Levophed and MAP more than 65. Still requiring oxygen at 8 L. He say without respiratory distress much of tachypnea.
Chest sounds clear. S1-S2 Foster.
Mild lower extremity edema. Weight gain since admission noted.
Clinical shock with initial suspicion of septic shock. No obvious clear foci evident so far. Still requiring vasopressors. Evaluating for cardiac dysfunction. Cortisol levels normal. Continue with empirical antibiotics for now.
Acute hypoxic respiratory failure-discordant findings with no symptoms when requiring high FiO2. Scattered clinically significant disease on the chest CT with multiple nodular infiltrates and severe emphysema. Suspect all his pulmonary parenchymal
lung disease causing the hypoxia. Cannot exclude PE. Unfortunately has acute kidney injury precluding PE study. V/Q will be abnormal with his infiltrates. Start with ultrasound of the legs to rule out DVT. With severe thrombocytopenia not a
candidate for anticoagulation unfortunately. Discussed with retail merchandiser technician regarding this plan.
Acute kidney injury which was getting better but then the last 2 days creatinine trending up. Check renal ultrasound. Consult nephrology .patient needed straight cath indications with outputs as high as 550. Will place a Briggs catheter to rule
out posterior obstructive scenario.
Concern of more metastatic disease than we know from left parotid tumor. Appreciate oncology input. Follow cell counts closely.
Discussed with cardiology-getting an echo today.
Discussed with GARBAGE TRUCK DRIVER
Total Critical Care Time__35___ minutes. I was immediately available to the patient and staff. I personally examined, reviewed labs, diagnostic images/reports, interpretations, treatment plans, discussed patient care with other providers and
family or caregivers (if patient is unable to make decisions), entered orders as appropriate and documented the medical record.
--- NOTE | 2023-12-20 09:22 | W.CON.NEPH ---
Consultation
-
Date/Time Consultation Requested: 12/20/23 0800
Date/Time Consultation Performed: 12/20/23 1030
Requesting Provider: Anthony Duncan
Performing Provider: Rafaela Mohamud
Reason for Consultation: LOGAN
Medical History
-
Chief Complaint: gen weakness, dizziness
History of Present Illness:
68-year-old gentleman past medical history notable for L parotid gland adenocarcinoma (last radiation 1-2 weeks ago at [place], no chemotherapy, c/b left 7th nerve palsy, bone mets), HTN on ARB, BPH on flomax, HLD on statin presented on 12/16 with new
onset inability to ambulate due to weakness. who He has had 20 cycles of radiation treatments at [facility]. He was awaiting reevaluation to decide on his next course. Reportedly his appetite is poor and has wt loss. On arrival he
noted to ge hypotensive and clinical shock requiring pressors. He notably has aspiration intermittently. CXR shows diffuse interstitial infiltrates CT chest with out contrast shows pulm metastatic disease. HIs cr on admit was 1.6 but now steadily
increasing upto 2.5 today hence nephrology consulted. He required SC once for 375cc. He seem oliguric. He maintained on abx since admit with concern of PNA. He offers no CP or sob. Has some nausea, vomiting, diarrhea for months. NOne now. No Abd
pain. He has regular use of NSAIDs WHAT JOB TITLES MEAN.
Past Medical History
Hypertension. Hyperlipidemia. COPD. Former smoker. Parotid adenocarcinoma with metastatic disease status post 20 cycles XRT-[facility] with known rib and vertebral mets. 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
Social History
Tobacco: Former Smoker (quit 2 yrs ago)
Alcohol: None
Drug: None
Living: With Family
Family History
no CKD
Allergies / Home Medications
Allergy/AdvReac Type Severity Reaction Status Date / Time
mupirocin AdvReac Vomiting Verified 12/17/23 21:17
�Medication �Instructions �Recorded �Confirmed �Type
rosuvastatin 20 mg tablet 20 mg PO DAILY High Cholesterol 08/03/23 12/17/23 History
tamsulosin 0.4 mg capsule 0.4 mg PO BID Urinary Issue 08/03/23 12/17/23 History
acetaminophen 500 mg tablet 1,000 mg PO Q6HPRN PRN mild pain 12/17/23 12/17/23 History
(Tylenol Extra Strength)
calcium acetate 952 mg-aluminum 1 applic topical BID cancer 12/17/23 12/17/23 History
sulfate 1,347 mg topical powder treatment wounds
packet ([place])
fluticasone 250 mcg-salmeterol 50 1 inh inhalation R BID 12/17/23 12/17/23 History
mcg/dose blistr powdr for Lung/Breathing Issues
inhalation (Advair Diskus)
gabapentin 300 mg capsule 300 mg PO TID Neurological 12/17/23 12/17/23 History
Condition
ibuprofen 200 mg tablet (Advil) 600 mg PO Q6HPRN PRN mild pain 12/17/23 12/17/23 History
metoprolol tartrate 25 mg tablet 25 mg PO BID Blood Pressure 12/17/23 12/17/23 History
neomycin-bacitracn Zn-polymyxn 3.5 1 applic topical BID cancer 12/17/23 12/17/23 History
mg-400 unit-5,000 unit top oint treatment wounds
pkt (Neosporin(zom-njw-mridc))
ondansetron HCl 8 mg tablet 8 mg PO Q8HPRN PRN nausea 12/17/23 12/17/23 History
oxycodone 10 mg tablet 10 mg PO Q4HPRN PRN severe pain 12/17/23 12/17/23 History
trazodone 50 mg tablet 50 mg PO HS Sleep 12/17/23 12/17/23 History
valsartan 80 mg tablet 80 mg PO DAILY Blood Pressure 12/17/23 12/17/23 History
Review of Systems
-
All complete 12 point ROS have been inquired and found negative other than stated in HPI
Physical Exam
Vital Signs
Vital Signs
Temp Pulse Resp BP Pulse Ox
97.7 F 91 10 97/64 92
12/20/23 07:00 12/20/23 08:15 12/20/23 08:15 12/20/23 08:00 12/20/23 08:00
Lab Results
WBC 4.1 10^3/uL (4.8-10.8) L 12/20/23 03:56
RBC 2.77 10^6/uL (4.70-6.10) L 12/20/23 03:56
Hgb 8.9 g/dL (13.0-18.0) L 12/20/23 03:56
Hct 25.9 % (39.0-52.0) L 12/20/23 03:56
Plt Count 25 10^3/uL (130-400) L* 12/20/23 03:56
Sodium 132 mmol/L (135-145) L 12/20/23 03:56
Potassium 4.4 mmol/L (3.5-5.1) 12/20/23 03:56
Chloride 110 mmol/L (98-107) H 12/20/23 03:56
Carbon Dioxide 16 mmol/L (22-30) L 12/20/23 03:56
BUN 64 mg/dl (9-20) H 12/20/23 03:56
Creatinine 2.5 mg/dL (0.7-1.3) H 12/20/23 03:56
eGFR 26.96 12/20/23 03:56
Glucose 118 mg/dl (70-99) H 12/20/23 03:56
Calcium 7.6 mg/dl (8.4-10.2) L 12/20/23 03:56
Phosphorus 4.0 mg/dl (2.5-4.5) 12/18/23 03:29
Albumin 2.7 g/dl (3.5-5.0) L 12/18/23 03:29
renal US 12/19:
Findings: Right kidney measures 10.5 cm, and the left kidney measures 11.6 cm in length. No hydronephrosis, contour deforming solid renal mass or echogenic shadowing foci to suggest renal calculi.
A partially filled bladder is seen in the pelvis and demonstrates trabeculated wall with diverticula. Bilateral ureterovesical jets were unable to be evaluated due to patient breathing.
Prostate measures approximately 4.9 x 4.5 x 4.1 cm.
IMPRESSION:
1. Findings suggesting chronic outlet obstruction changes. Otherwise essentially unremarkable limited renal ultrasound, as detailed above.
12/16:
Ct head:
IMPRESSION:
1. No acute intracranial abnormality.
2. Left mastoid effusion.
3. An MRI without and with intravenous contrast would be more sensitive if there is clinical concern for intracranial metastatic disease.
Ct chest:with out contrast
IMPRESSION:
1. Numerous nodular opacities throughout both lungs considered most suspicious for pulmonary metastatic disease in the setting of known metastatic parotid adenocarcinoma.
2. Progression of osteoblastic metastatic disease in the chest.
3. Severe chronic obstructive pulmonary disease.
Physical Exam
General: Awake, Alert, Oriented, AOx3, No Distress and Nontoxic
HEENT: EOMI, Anicteric, Neck Supple, No JVD (?) and Other (left facial palsy )
Respiratory: Crackels (at bases), Normal Excursion and Nonlabored Respirations
Cardiac: S1/S2 and Regular Rate/Rhythm
Breast: Deferred by me
Abdomen: Soft, Nontender and Nondistended
Musculoskeletal: No Cyanosis and Edema (UE 1+)
Skin: No Rash
Neuro: Nonfocal/Grossly Intact and CN II-XII (left facial droop)
Psych: Mood/afflect pleasant and Appropriate
Data Reviewed
-
Radiology: Report Reviewed by me and Discussed with Patient
Labs: Labs Reviewed by me, Discussed with Nurse and Discussed with Family
Assessment/Plan
-
IMP:
Clinical shock with initial suspicion of septic shock
Acute hypoxic respiratory failure
Acute kidney injury
metastatic left parotid tumor
Pancytopenia
Elevated troponin
Hyponatremia
Non gap metabolic acidosis
Hypoalbuminemia
COPD
h/o HTN
HLD
PLan:
A/w gen weakness and noted in clinical shock
LOGAN-cr steady increase , no baseline available
UA with ?UTI sample but cx neg, renal US chronic GÓMEZ
agree to place park today, UOP seem oliguric
IVF changed to bicarb today for met acidosis
I think he could have ischemic ATN vs obst vs AIN vs other causes
recheck UA with U eosinophils, Fena
he is 6kg over his admit wt and on 8lit mid flow O2
would avoid aggressive IV-decrease rate to 60, ok to use prn lasix
no emergent need of RESIDENTIAL AIR SEALING TECHNICIAN however has high risk if no improvement in 24-48hrs
titrate pressors to keep SBP>90, cortisol was ok, await echo,add midodrine
avoid nephrotoxins and adjust meds renally, cx data neg so far
recheck labs later today
d/w nursing and pt
--- NOTE | 2023-12-20 09:24 | W.PN.INTV ---
Today's Communication / Plan
Recommendations
Antibiotics
Pressors
Wean oxygen
Echocardiogram
Lower extremity ultrasound
Assessment
-
68-year-old male with underlying hypertension, hyperlipidemia, COPD, former [id number] smoker who has a left parotid gland adenocarcinoma status post radiation-20 cycles at [facility] within the last couple weeks with known C2 vertebral body metastatic
disease and rib mets admitted with sepsis-assistant operations manager consulted for sepsis/shock/critical care management 12/18/2023.
Sepsis with shock unresponsive to fluids requiring pressors
Pneumonia-aspiration versus widely metastatic disease to the lung parenchyma
Pancytopenia
Efsyaa-exvucxpomu-gqnukxpatv 7.9 status post transfusion
Leukopenia-WBC 4.3
Thrombocytopenia-platelet 36
Lactic acidosis
LOGAN
Mild hyperglycemia
Hypocalcemia
Conditions present prior to admission:
Hypertension.
Hyperlipidemia.
COPD-followed by primary-on Advair and albuterol as needed
Former smoker.
Carotid adenocarcinoma-stage IV with metastatic disease status post 20 cycles XRT-[facility] with known rib and vertebral mets.
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
BPH
Plan
Continues to be critically ill requiring pressors
Supplement oxygen as needed-currently on 8 L mid flow-attempt to wean
High flow oxygen if needed
BiPAP if necessary
Intubate and mechanically ventilate if necessary
Aspiration precautions per protocol
Nebulizers if needed-currently with minimal bronchospasm
CT chest consistent with extensive bilateral pulmonary parenchymal disease-diffuse infection versus metastatic/lymphangitic
Note: Severe emphysematous changes noted on CT lungs-suspect he has significant underlying COPD to start with
Cultures reviewed
Blood qwhrvofk-wwgleos-lrbuyuab thus far
Urine cultures no growth
MRSA screen negative
Empiric antibiotics-vancomycin and Zosyn initiated-now on Zosyn alone
Infectious disease following-correspondence reviewed
Monitor leukocytosis
Decrease IV fluids
Trend lactate
Norepinephrine-attempt to wean
Cardiology following-correspondence reviewed-reviewed personally with Dr. Marquez
Troponin trended
Monitor renal function-serum creatinine up to 2.5
Consider nephrology evaluation
Check echocardiogram
Check lower extremity ultrasound-low suspicion for venous thromboembolic disease
Not a candidate for CT/PE protocol and VQ scan would unlikely be productive in this patient with significant COPD and diffuse parenchymal abnormalities-reviewed with Dr. Madrid
Monitor pancytopenia-improved
Transfuse as needed
Oncology evaluation
Follow-up renal function-serum creatinine increasing
Consider nephrology evaluation
Oncology evaluation noted-supportive care, they will review plan with Donny Gonzalez, transfuse as needed
Monitor hemoglobin and platelet count
Transfuse as needed
DVT prophylaxis-mechanical with severe thrombocytopenia
Nutrition
Early mobilization/bedside range of motion
Dr. Silva explained to patient that if parenchymal process is infectious it may be reversible, however, told him parenchymal and interstitial process may be metastatic disease which would be much more difficult to control
Eventual outpatient pulmonary jcenhp-wq-tnpzbu emphysematous changes on CT, last low-dose lung cancer screening CT 04/07/2018-likely will receive repetitive imaging studies for his parotid cancer follow-up at [facility]
Critical care statement: A total of 42 minutes of critical care time was provided for this patient today. This includes management of unstable vital signs, evaluation of the patient at bedside, reviewing the patient's pertinent medical records
including radiographs, pressor management, microbiology, laboratory evaluations, and discussion with primary team, consultants, pharmacy, nutrition, physical therapy, case management, charge nurse, critical care nursing, and respiratory therapy.
Diagnostic data:
Chest x-ray 12/17/2023-moderately extensive diffuse coarsening of interstitial markings throughout both lung edward suggesting diffuse interstitial pneumonia
CT eispg-ict-qsjs lung cancer screening 04/07/2018-no discrete pulmonary nodules or focal parenchymal consolidation
CT chest 12/17/2023-numerous nodular opacifications suspicious for pulmonary metastatic disease, progression of osteoblastic metastatic disease in the chest, severe COPD
CT head 12/17/2023-no acute intracranial abnormalities, left mastoid effusion,
PET scan 08/19/2023-FDG avid left parotid gland mass with SUV max of 11.2 with adjacent FDG avid lymph nodes as well as posterior and anterior cervical chain in the left supraclavicular area, FDG avidity in the C2 vertebral process, few scattered
small foci of FDG avid B in ribs bilaterally
Subjective Dataa
Subjective Data
Date of Service:
Date of Service: December 20, 2023
Chief Complaint: Head Animal Trainer Follow Up and Pulmonary Follow Up
Subjective:
Feels about the same, has some chest congestion, nonproductive cough, no chest pain, abdominal pain
Review of Systems
General: Other (Per HPI)
Objective Data
Data Reviewed
Vital Signs / I&O / Oxygen:
Vital Signs
Temp Pulse Resp BP Pulse Ox
97.7 F 91 10 97/64 92
12/20/23 07:00 12/20/23 08:15 12/20/23 08:15 12/20/23 08:00 12/20/23 08:00
Intake and Output
12/19/23 12/20/23 12/21/23
06:59 06:59 06:59
Intake Total 4174.6 / 4273.4 2717.1 / 2717.1
Output Total 925 / 925 425 / 425
Balance 3249.6 / 3348.4 2292.1 / 2292.1
SaO2 92
Nasal Cannula flow liters per 8
minute
Physical Exam
General: Respiratory Distress (Mild) and Comfortable
HEENT: Normocephalic, Anicteric, Moist Mucous Membranes and Other (Left facial droop)
Cardiovascular: Regular Rhythm and Murmur
Respiratory: Clear (Diminished breath sounds and prolonged expiratory time), Wheeze (n), Crackles (Rare basilar), Rhonchi (n), Non-Labored Respirations, Accessory Resp Muscle Use (n) and Stridor
GI: Soft, Non Distended and Non Tender
Neurology: Awake, Alert and No Motor Deficits
Skin: Good Color, Cyanosis (n), Jaundice (n) and Rash (n)
Labs/Micro/Reports
Lab Data
12/20/23 03:56
12/20/23 03:56
Microbiology
12/17/23 15:16 Blood/Venous Blood Culture - Preliminary
No Growth in 48 hours- Final report to follow
12/18/23 12:57 Blood/Venous Blood Culture - Preliminary
No Growth in 24 hours- Final report to follow
12/17/23 23:15 Urine Urine Culture - Final
NO GROWTH
12/17/23 22:21 Nose Nasal Screen MRSA (PCR) - Final
MRSA not detected - performed by PCR methodology.
--- NOTE | 2023-12-20 10:00 | W.PN.ID1 ---
Addendum entered and electronically signed by Radha Estrada MD 12/20/23 13:53:
no urine eos
Original Note:
Date of Service
Date of Service: December 20, 2023
Today's Communication
add micafungin
continue zosyn/levaquin for now
Assessment / Plan
Shock - suspected septic
Pancytopenia - improved
LOGAN +/- CKD
left parotid gland adenocarcinoma - not on immunosuppressive drugs
- agree with cbc with diff in AM given progressive leukopenia
- blood cultures x2 in progress - no growth to date
- urine culture neg
- agree with park placement
- distal fingers and toes all dusky today
- update echo - new dilated hypokinetic RV, hyperdynamic EF
- renally dosed antibiotics:
- continue zosyn
- continue levaquin for now
- add micafungin
- follow clinically, patient remains critically ill
Chief Complaint
-: Other (shock)
Subjective / Review of Systems
afebrile
norepi weaned as low as 2 mcg/min currently at 4 mcg/min; peak on arrival was 10
pancytopenia ongoing, leukopenia a bit worse
cr now 2.5
renal US: chronic obstruction but no acute obstruction or hydro
blood cultures no growth to date
Vital Signs / Physical Exam
Vital Signs
Vital Signs
Temp Pulse Resp BP Pulse Ox
97.7 F 91 10 97/64 92
12/20/23 07:00 12/20/23 08:15 12/20/23 08:15 12/20/23 08:00 12/20/23 08:00
Physical Exam
Constitutional: No Acute Distress
Cardiovascular: Regular Rate and S1/S2; Negative Murmur or Rub
Pulmonary: Clear and Symmetric; Negative Wheezes or Rales
Gastrointestinal: Soft, Non Tender, Non Distended and Normal Bowel Sounds
Skin: Warm, Dry and Other (distal fingers and toes all dusky); Negative Rash or Jaundice
Objective Data
Lab Data
Lab Results
12/20/23 03:56
12/20/23 03:56
PT 16.2 Sec (11.4-14.6) H 12/17/23 20:37
INR 1.29 12/17/23 20:37
APTT 39.0 Sec (23.4-35.0) H 12/17/23 20:37
Estimated Creat Clear 29 ml/min 12/20/23 03:56
Lactic Acid Cancelled 12/18/23 01:58
Total Bilirubin 1.0 mg/dl (0.2-1.3) 12/18/23 03:29
AST 94 U/L (17-59) H 12/18/23 03:29
ALT 18 U/L (0-50) 12/18/23 03:29
Alkaline Phosphatase 413 U/L (38-126) H 12/18/23 03:29
Most recent labs reviewed.
Micro Results:
12/17/23 15:16 Blood Culture - Preliminary
Blood/Venous No Growth in 48 hours- Final report to follow
12/18/23 12:57 Blood Culture - Preliminary
Blood/Venous No Growth in 24 hours- Final report to follow
12/17/23 23:15 Urine Culture - Final
Urine NO GROWTH
12/17/23 22:21 Nasal Screen MRSA (PCR) - Final
Nose MRSA not detected - performed by PCR methodology.
Care Review
Plan reviewed with: Physician (Dr Marquez - echo findings)
--- NOTE | 2023-12-20 10:52 | PTCARENOTE ---
Rec'd pt at 0700. Pt AAOx3, some short term memory loss noted. Follows commands, PADILLA with gen weakness. Monitor SR. Levophed increased to 4mcg/min per cards to also keep SBP >90 and MAP >65. Pt OOB to BSC with min assist of 2, moderate loose wagoner
stool. Pt back to bed for ECHO at bedside. Briggs placed per MD. Lungs dim, pox 94% on 8L midflow. +BS, abd soft/nt. Poor appetite, refusing breakfast tray. Wound care to left neck.
[2023-12-20] MEDS: LEVAQUIN 750 MG PO (11:48)
[2023-12-20] MEDS: MYCAMINE 105 MG IV (11:48)
[2023-12-20 12:08] LABS: Urine Albumin 1+ (Neg - Trace); Urine Bilirubin Negative (Negative); Urine Character Clear (Clear); Urine Color Yellow; Urine Glucose Negative (Negative); Urine Ketone Negative (Negative); Urine Leukocyte Negative (Negative); Urine Nitrite Negative (Negative); Urine Occult Blood Trace (Negative); Urine Specific Gravity 1.015 (<1.030); Urine Urobilinogen Negative (Neg - 1+)
[2023-12-20 12:29] LABS: Urine Red Blood Cell 0-2 /HPF (0-2)
[2023-12-20 12:30] LABS: Urine Amorphous Seen
[2023-12-20 12:31] LABS: Urine Bacteria Moderate (Negative)
[2023-12-20 12:44] LABS: Urine Sodium 16 mmol/L (30-90)
--- NOTE | 2023-12-20 12:46 | W.PN.HOSP.TC ---
Today's Communication/Plan
-
Continue antibiotics and pressors. Trial weaning oxygen. Lower extremity ultrasound, if positive we may further investigate for possible PE.
Assessment / Plan
Assessment / Plan
- Clinical shock due to suspected sepsis: Monitoring
significant hypotension requiring vasopressors in the emergency department
Patient admitted to aspiration and chest x-ray shows signs of pneumonia with extensive diffuse coarsening of the interstitial markings throughout both lungs -clinical concern is either aspiration pneumonia/hospital acquired pneumonia versus other
interstitial lung processes.
Blood culture drawn -second set of blood cultures sent
Continue Levophed and fluid -6 Levophed given this morning
Vancomycin and Zosyn started
Infectious diseases consulted -Continuing Zosyn and Levaquin for the present time. Added micafungin
Patient will be kept on clear liquids and a speech therapy eval has been ordered.
- Pancytopenia: Monitoring -
1 unit of PRBCs given due to severe anemia
Trend H&H, white blood cells, and platelets -hemoglobin and hematocrit stable, white blood cells now within normal limits. Thrombocytopenia ongoing.
Will touch base with primary oncologist to see what his blood counts were prior to his presentation in the emergency department.
-Lactic acidosis: Monitoring
May be secondary to sepsis -will continue to trend with hemodynamic support
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
CT of the head ordered.
-Acute kidney injury: Monitoring
Upon admission the patient has an elevated BUN of 72 and creatinine of 1.8. No acidosis and no significant fluid overload clinically. Patient's renal function baseline is not known.
Follow creatinine
Give hemodynamic support with fluids and vasopressors
bladder scan protocol
Creatinine is 2.5 on 12/19
Kidney and bladder ultrasound: Findings suggesting chronic outlet obstruction changes.
-Essential hypertension: Monitoring
Patient has a history of hypertension on oral medication which we will hold. EKG shows nonspecific ST changes.
-Hypoxic respiratory insufficiency: Monitoring
Suspected secondary to underlying lung disease. Support with oxygen for now and treat possible pneumonia.
High flow oxygen if needed
BiPAP if necessary
Aspiration precautions
Nebulizers as needed
CT of chest consistent with widely metastatic pulmonary parenchymal disease versus diffuse infection
Severe emphysematous changes noted on CT lung
Ultrasound of the legs to rule out DVT, useful in determining possibility of pulmonary embolism.
DVT prophylaxis: Sequential compression devices
Full code
Data:
Chest x-ray on 12/17/2023: Moderately extensive diffuse coarsening of the interstitial markings throughout both lungs, new when compared with the prior study suggesting diffuse interstitial pneumonia.
Chest CT on 12/17/2023: Numerous nodular opacities throughout both lungs considered most suspicious for pulmonary metastatic disease in the setting of known metastatic parotid adenocarcinoma. Progression of osteoblastic metastatic disease in the
chest. Severe chronic obstructive pulmonary disease.
Chest CT on 12/17/[address] on 12/17/2023: No acute intracranial abnormality. Left mastoid effusion.
Renal ultrasound on 12/20/23: Findings suggesting of chronic outlet obstruction changes
Echocardiogram on 12/20/2023: Hyperdynamic left ventricular systolic function. Estimated ejection fraction 70 to 75%. Dilated hypokinetic right ventricle. Mild tricuspid regurgitation.
Anticipated Discharge: > 48 hours
Subjective/Interval History
-
Date of Service: December 20, 2023
Met with patient at the bedside. He offers no complaints and has a very positive attitude. He is not having any shortness of breath even though he requires an oxygen cannula and denies any chest pain.
Objective Data
-
Labs:
Laboratory Results
12/20/23 12/20/23
03:56 16:00
WBC 4.1 L
Hgb 8.9 L
Hct 25.9 L
Plt Count 25 L*
Sodium 132 L Pending
Potassium 4.4 Pending
Chloride 110 H Pending
Carbon Dioxide 16 L Pending
BUN 64 H Pending
Creatinine 2.5 H Pending
Glucose 118 H Pending
Calcium 7.6 L Pending
Vital Signs:
Vital Signs
Temp Pulse Resp BP Pulse Ox
98.1 F 102 27 106/62 63
12/20/23 11:00 12/20/23 12:15 12/20/23 12:15 12/20/23 12:00 12/20/23 12:15
I&O
12/19/23 12/20/23 12/21/23
06:59 06:59 06:59
Intake Total 4174.6 / 4273.4 2717.1 / 2824.6 642.5 / 642.5
Output Total 925 / 925 425 / 425
Balance 3249.6 / 3348.4 2292.1 / 2399.6 642.5 / 642.5
Review of Systems
-
History Source: Patient
All other systems: Reviewed and negative
Constitutional: Reports No Symptoms
Physical Exam
-
General: Well Developed, No Apparent Distress and Comfortable
HEENT: Normocephalic and Oxygen
Respiratory: Clear to Auscultation
Cardiac: Regular Rhythm and S1/S2
Breast: Deferred by me
GI: Soft, Nontender, Nondistended and Normal Bowel Sounds
Rectal: Deferred by Provider
Genito-urinary: Deferred by me
Musculoskeletal: No Clubbing, No Cyanosis and No Edema
Neuro: Nonfocal/Grossly Intact and Facial Droop
[2023-12-20] MEDS: ProAmatine 5 MG PO ×2 (13:20→17:49)
[2023-12-20 13:30] LABS: Body Fluid for Eosinophils No Eosinophils seen
[2023-12-20] MEDS: LEVOPHED 250 IV (14:34)
[2023-12-20 16:11] LABS: Blood Urea Nitrogen 70 mg/dl (9-20); Calcium 7.4 mg/dl (8.4-10.2); Carbon Dioxide 19 mmol/L (22-30); Chloride 107 mmol/L (98-107); Estimated Creatinine Clearance 26 ml/min; Glucose 108 mg/dl (70-99); Potassium 4.5 mmol/L (3.5-5.1); Sodium 131 mmol/L (135-145); eGFR 23.53
--- NOTE | 2023-12-20 17:21 | PTCARENOTE ---
No changes in pt assessment. Pt incont for mod amt loose wagoner stool, pericare performed. Pt repositioned.
--- NOTE | 2023-12-20 19:52 | PTCARENOTE ---
Assumed care of pt at 1900. Pt is A/O x3, pleasant and cooperative with care, periods of forgetfulness. Denies any pain at this current time. Received pt on Levophed infusion at 4mcg/min, titrating to keep MAP >65. Pt also on sodium bicarb drip. Pt
on midflow NC at 8LPM, difficult to obtain consistent pleth for SpO2 reading but when it does read, pt has been high 80s-low 90s. SR 90s-ST 110s on monitor. Physical assessment completed, see nursing shift assessment flowsheet for full details. Call
solorio and personal items within reach. Family at bedside. Pt currently watching TV.
[2023-12-20] MEDS: DESYREL 50 MG PO (21:00)
[2023-12-21] VITALS (73 sets, daily range): BP systolic 70–147; BP diastolic 50–120; BMI 23.9
--- NOTE | 2023-12-21 01:10 | PTCARENOTE ---
Midnight assessment unchanged. Levophed needed to be titrated up, now at 8mcg/min. Pt remains on midflow NC at 8LPM and, when asleep and lying still, SpO2 reads in high 90s. SR 90s on monitor.
[2023-12-21] MEDS: LEVOPHED 250 IV ×3 (03:34→20:35)
[2023-12-21] MEDS: ZOSYN 50 IV (04:01)
[2023-12-21 04:32] LABS: Hematocrit 26.2 % (39.0-52.0); Mean Corp Hgb Conc. 34.4 g/dL (33.0-37.0); Mean Corpuscular Hgb 30.6 pg (27.0-31.0); Mean Corpuscular Volume 89.1 fL (80.0-94.0); Platelet Count 22 10^3/uL (130-400); Red Blood Cell Count 2.94 10^6/uL (4.70-6.10); Red Cell Dist. Width 20.3 % (11.5-14.5); White Blood Cell Count 5.1 10^3/uL (4.8-10.8)
--- NOTE | 2023-12-21 04:36 | PTCARENOTE ---
Assessment unchanged. Pt has been asleep for the last few hours. SpO2 97% on 8L midflow NC. SR 90s on monitor.
[2023-12-21] MEDS: ROXICODONE 10 MG PO (05:05)
[2023-12-21 05:07] LABS: Blood Urea Nitrogen 79 mg/dl (9-20); Calcium 7.3 mg/dl (8.4-10.2); Carbon Dioxide 17 mmol/L (22-30); Chloride 104 mmol/L (98-107); Estimated Creatinine Clearance 23 ml/min; Glucose 104 mg/dl (70-99); Potassium 4.5 mmol/L (3.5-5.1); Sodium 129 mmol/L (135-145); eGFR 20.05
[2023-12-21 05:23] LABS: Absolute Neutrophils -Man Diff 4.3 10^3/uL (1.4-6.5); Band Neutrophils 13 % (0-3); Lymphocytes 5 % (20-51); Metamyelocytes 5 % (-); Monocytes 5 % (2-9); Normal RBC Morphology No; Nucleated Red Blood Cells 4 (-); Platelets Checked Yes; Segmented Neutrophils 72 % (42-75)
[2023-12-21 05:31] LABS: Anisocytosis 1+
[2023-12-21 05:32] LABS: Total Cells Counted 100; Toxic Granulation 1+
[2023-12-21 05:35] LABS: Vacuolated Segs Occasional
[2023-12-21 05:39] LABS: Ovalocytes Occasional
[2023-12-21 05:57] LABS: Basophilic Stippling 1+; Polychromasia 1+
[2023-12-21 05:58] LABS: Stomatocytes Occasional
[2023-12-21] MEDS: ADVAIR HFA 115/21 MCG INHALER 2 PUFF INH ×2 (07:27→20:27)
[2023-12-21] MEDS: POLYSPORIN OINTMENT 1 APPLIC TOPICAL ×2 (07:37→19:34)
[2023-12-21] MEDS: MIRALAX PO (07:38)
[2023-12-21] MEDS: ProAmatine 5 MG PO (07:38)
[2023-12-21] MEDS: FLOMAX 0.4 MG PO ×2 (07:38→19:34)
[2023-12-21] MEDS: CRESTOR 20 MG PO (07:38)
[2023-12-21] MEDS: NON-FORMULARY ITEM TOPICAL ×2 (07:38→20:37)
[2023-12-21] MEDS: COLACE 100 MG PO (07:38)
[2023-12-21] MEDS: NEURONTIN 300 MG PO (07:38)
[2023-12-21] MEDS: SENOKOT 8.6 MG PO (07:38)
--- NOTE | 2023-12-21 08:02 | W.PN.NEPH.PH ---
Today's Communication / Plan
-
Maintain alkaline IV fluid
Maintain pressors to keep systolic blood pressure 100 or greater
No dialysis today
Maintain Briggs
Assessment/Plan
-
IMP:
Clinical shock with initial suspicion of septic shock
Acute hypoxic respiratory failure
Acute kidney injury
metastatic left parotid tumor
Pancytopenia
Elevated troponin
Hyponatremia
Non gap metabolic acidosis
Hypoalbuminemia
COPD
h/o HTN
HLD
PLan:
A/w gen weakness and noted in clinical shock
OLGAN-cr steady increase , no baseline available , now up to 3.2 and oliguric with urine output noted at 350 cc
UA with ?UTI sample but cx neg, renal US chronic GÓMEZ
Maintain Briggs catheter
bicarb today for met acidosis which persists
I think he could have ischemic ATN vs obst vs AIN vs other causes
rechecked UA with U eosinophils (-), Fena
he is 6kg over his admit wt and on 8lit mid flow O2, noted evolving infiltrate on chest x-ray
would avoid aggressive IV-decrease rate to 60, ok to use prn lasix , remains hemodynamically labile
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
titrate pressors to keep SBP>90, cortisol was ok, ,add midodrine
Echo reveals preserved LV function but hypokinetic right ventricle: This could be part of the causality of his hypotension
avoid nephrotoxins and adjust meds renally, cx data neg so far
recheck labs later today
d/w nursing and pt
Patient is critically ill with worsening renal failure and pressor dependent hypotension
Total Time Spent with Patient (in minutes): 31 minutes critical care
-
-
Date of Service: December 21, 2023
CC / HPI / ROS
-
Chief Complaint:
Acute kidney injury
History of Present Illness:
Acute kidney injury worsened
Hemodynamically labile on pressor support
Metabolic acidosis persist on sodium bicarbonate infusion
Review of Systems:
Oliguric via Briggs
Oxygen dependent
No chest pain
Labs
-
Labs:
WBC 5.1 10^3/uL (4.8-10.8) 12/21/23 04:07
RBC 2.94 10^6/uL (4.70-6.10) L 12/21/23 04:07
Hgb 9.0 g/dL (13.0-18.0) L 12/21/23 04:07
Hct 26.2 % (39.0-52.0) L 12/21/23 04:07
Plt Count 22 10^3/uL (130-400) L* 12/21/23 04:07
Sodium 129 mmol/L (135-145) L 12/21/23 04:07
Potassium 4.5 mmol/L (3.5-5.1) 12/21/23 04:07
Chloride 104 mmol/L (98-107) 12/21/23 04:07
Carbon Dioxide 17 mmol/L (22-30) L 12/21/23 04:07
BUN 79 mg/dl (9-20) H 12/21/23 04:07
Creatinine 3.2 mg/dL (0.7-1.3) H 12/21/23 04:07
eGFR 20.05 12/21/23 04:07
Glucose 104 mg/dl (70-99) H 12/21/23 04:07
Calcium 7.3 mg/dl (8.4-10.2) L 12/21/23 04:07
Phosphorus 4.0 mg/dl (2.5-4.5) 12/18/23 03:29
Albumin 2.7 g/dl (3.5-5.0) L 12/18/23 03:29
Physical Exam
-
Vital Signs:
Vital Signs
Temp Pulse Resp BP Pulse Ox
98.4 F 98 15 113/93 96
12/21/23 07:13 12/21/23 07:45 12/21/23 07:45 12/21/23 07:45 12/21/23 07:27
Respiratory:: Bilateral: Coarse
Lung Excursion:: Normal
Abdomen:: Nontender and Soft
Bowel Sounds:: Normal
Extremity Edema:: None: Bilateral:
Briggs Catheter: Yes
--- NOTE | 2023-12-21 08:17 | W.PN.ID1 ---
Date of Service
Date of Service: December 21, 2023
Today's Communication
switched to vanc/meropenem, continue micafungin
CT a/p without IV contrast
LFTs
Assessment / Plan
Shock - suspected septic
Suspected Hospital Acquired Pneumonia
Pancytopenia - improved
LOGAN +/- CKD
left parotid gland adenocarcinoma - not on immunosuppressive drugs
- L shift remains
- sputum culture if able - CXR with suggest
- blood cultures x2 in progress - no growth to date
- recheck LFTs
- echo with hyperkinetic EF, does not appear to be cardiogenic shock
- CT a/p without IV contrast, with oral contrast if feasible
- renally dose antibiotics:
- has not responded to atypical coverage - likely no benefit - stopped levaquin
- switched to vancomycin/meropenem
- continue micafungin
- follow clinically, patient remains critically ill
Chief Complaint
-: Other (shock)
Subjective / Review of Systems
afebrile
remains on pressors - they were transiently weaned down yesterday to 2 mcg/min now back to 6 mcg/min
wbc 5
hgb 9
plt 22
na now 129
renal function further declining
US no DVT BL
CXR: my read: possible L middle and R middle loebe infiltrates vs progressive pulmonary edema;
remains in good spirits without specific complaints
lines nontender
Vital Signs / Physical Exam
Vital Signs
Vital Signs
Temp Pulse Resp BP Pulse Ox
98.4 F 98 15 113/93 96
12/21/23 07:13 12/21/23 07:45 12/21/23 07:45 12/21/23 07:45 12/21/23 07:27
Physical Exam
Constitutional: Acutely Ill and Chronically Ill
Cardiovascular: Regular Rate and S1/S2; Negative Murmur or Rub
Pulmonary: Symmetric, Coarse and Non Labored; Negative Wheezes or Rales
Gastrointestinal: Soft, Non Tender, Non Distended and Normal Bowel Sounds
Skin: Warm and Dry; Negative Rash or Jaundice
Wound: Other (L ear: no surrounding erythema, warmth, swelling, mild slough)
Neurological: Awake
Lines: Other (picc/midline - functional, no erythema, warmth, tenderness or drainage)
Objective Data
Lab Data
Lab Results
12/21/23 04:07
12/21/23 04:07
PT 16.2 Sec (11.4-14.6) H 12/17/23 20:37
INR 1.29 12/17/23 20:37
APTT 39.0 Sec (23.4-35.0) H 12/17/23 20:37
Estimated Creat Clear 23 ml/min 12/21/23 04:07
Lactic Acid Cancelled 12/18/23 01:58
Total Bilirubin 1.0 mg/dl (0.2-1.3) 12/18/23 03:29
AST 94 U/L (17-59) H 12/18/23 03:29
ALT 18 U/L (0-50) 12/18/23 03:29
Alkaline Phosphatase 413 U/L (38-126) H 12/18/23 03:29
Most recent labs reviewed.
Micro Results:
12/17/23 15:16 Blood Culture - Preliminary
Blood/Venous No Growth in 72 hours- Final report to follow
12/18/23 12:57 Blood Culture - Preliminary
Blood/Venous No Growth in 48 hours- Final report to follow
12/17/23 23:15 Urine Culture - Final
Urine NO GROWTH
12/17/23 22:21 Nasal Screen MRSA (PCR) - Final
Nose MRSA not detected - performed by PCR methodology.
Care Review
Plan reviewed with: Nurse (no new complaints)
--- NOTE | 2023-12-21 08:35 | PTCARENOTE ---
Assumed care of pt at 0700. Pt is A/O x3, pleasant and cooperative with care, periods of forgetfulness. Denies any pain at this current time. Received pt on Levophed infusion at 8mcg/min, titrating to keep MAP >65, SBP>100. Pt also on sodium bicarb
drip. Pt on midflow NC at 6LPM, difficult to obtain consistent pleth for SpO2 reading but when it does read, pt has been high 80s-low 90s. SR 90s-ST 110s on monitor. Physical assessment completed, see nursing shift assessment flowsheet for full
details. Call solorio and personal items within reach. Family at bedside. Pt currently watching TV.
--- NOTE | 2023-12-21 08:38 | PHA.VAN.IN ---
Assessment
- Assessment
Renal Function: Unknown baseline (SCR increased from admission 1.8 --> 3.2)
Concomitant Antimicrobials: meropenem, micafungin
- Previous Dosing Experience
Patient receiving vanco earlier this admission
Last dose received: Vanc 1g 12/17 following R=16.9
SCR increased from 1.5 to 3.2 since Thursday
Plan
- Plan
Initial / Loading Dose: 1250mg - administration pending
Maintenance Regimen: dosing by level
Monitoring: random 12/21 0600
Will hold off on re-loading patient as anticipate may still have some detectable level with worsening LOGAN
Pharmacokinetics Vancomycin I
- -
Patient Age: 68
Patient Sex: Male
Vancomycin Day #: 1
Indication: Other
Requesting Provider: Dr. Rangel
Pertinent Antimicrobial Allergies:
mupirocin - vomiting
Height / Weight:
Height 5 ft 11 in
Actual Weight 77.7 kg
Pertinent Past Medical History: L. parotid adenocarcinoma
- Vital Signs / Lab Results
Temp Pulse Resp BP Pulse Ox
98.4 F 98 13 104/55 92
12/21/23 07:13 12/21/23 08:15 12/21/23 08:15 12/21/23 08:15 12/21/23 08:00
Lab Results - Hematology
12/19/23 12/20/23 12/21/23
04:03 03:56 04:07
WBC 4.7 L 4.1 L 5.1
Band Neutrophils 13 H
Lab Results - Chemistry
12/19/23 12/20/23 12/20/23
04:03 03:56 15:31
BUN 57 H 64 H 70 H
Creatinine 1.9 H 2.5 H 2.8 H
Estimated Creat Clear 36 29 26
12/21/23
04:07
BUN 79 H
Creatinine 3.2 H
Estimated Creat Clear 23
Lab Results - Urine
12/20/23
11:46
Urine Nitrite Negative
Ur Leukocyte Esterase Negative
Urine WBC 6-10 A
Ur Squamous Epith Cells 3-5
Urine Bacteria Moderate A
Microbiology Results
12/17/23 15:16 Blood Culture - Preliminary
Blood/Venous No Growth in 72 hours- Final report to follow
12/18/23 12:57 Blood Culture - Preliminary
Blood/Venous No Growth in 48 hours- Final report to follow
12/17/23 23:15 Urine Culture - Final
Urine NO GROWTH
--- NOTE | 2023-12-21 08:47 | W.PN.INTV ---
Today's Communication / Plan
Recommendations
Antibiotics
Pressors
Start albumin to help wean off pressors
Raise midodrine
Wean oxygen as tolerated
RUE venous and arterial US given duskiness with slightly cool r-hand, although no pain, sensory loss or weakness reported in his RUE --> if duskiness worsens then consult vascular surgery
Assessment
-
68-year-old male with underlying hypertension, hyperlipidemia, COPD, former [id number] smoker who has a left parotid gland adenocarcinoma status post radiation-20 cycles at [facility] within the last couple weeks with known C2 vertebral body metastatic
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
Impression:
Sepsis with shock unresponsive to fluids requiring pressors
Pneumonia-aspiration versus widely metastatic disease to the lung parenchyma
Pancytopenia
Altered mental status/confusion
Anemia s/p transfusion with 1 unit PRBC on 12/17/2023
Lactic acidosis � resolved as of evening on 12/17/2023
LOGAN � worsening
Mild hyperglycemia
Hypoalbuminemia
Elevated troponin likely due to demand ischemia with type II NM
Conditions present prior to admission:
Hypertension.
Hyperlipidemia.
COPD with severe centrilobular emphysema-followed by primary-on Advair and albuterol as needed
Former smoker (12-zinc-yqdy history, quit 2021)
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
BPH
Plan
Continues to be critically ill requiring pressors
Supplement oxygen as needed-currently on 6 L via midflow-attempt to wean
High flow oxygen if needed
BiPAP if necessary
Intubate and mechanically ventilate if necessary
Aspiration precautions per protocol
Nebulizers if needed-currently not bronchospastic
CT chest consistent with extensive bilateral pulmonary parenchymal disease-diffuse infection versus metastatic/lymphangitic
Note: Severe emphysematous changes noted on CT lungs-suspect he has significant underlying COPD to start with
Cultures reviewed
Blood lsjqgprd-eyadnls-caipxkaq thus far
Urine cultures no growth
MRSA screen negative
Empiric antibiotics-vancomycin and Zosyn initiated-now on meropenem, IV vanco and micafungin
Infectious disease following-correspondence reviewed
Trend leukocytosis & fever curve
Continue levophed and wean as tolerated to maintain MAP>65
Raise midodrine to 10mg TID
Start albumin and given 25g 25% x 3 doses given low serum albumin
Cardiology following-correspondence reviewed-reviewed personally with Dr. Marquez
No longer need to trend troponin given it peaked at 0.49 on 12/18/2023
Monitor renal function, and renally dose all meds + Abx
Nephrology consulted with recs appreciated
Given confusion and worsening LOGAN, stop gabapentin --> resume once Cr + AMS improves
TTE performed on 12/12/2023 shows hyperdynamic systolic function with LVEF 70-75% with dilated, hypokinetic RV, which is new compared to prior TTE from 05/2022
Lower extremity ultrasound negative for DVT
Not a candidate for CT/PE protocol and VQ scan would unlikely be productive in this patient with significant COPD and diffuse parenchymal abnormalities- Dr. Silva previously reviewed with Dr. Madrid
Trend WBC
Trend Hb and plt --> transfuse as needed to keep Hb>7g/dL, plt>20k
Oncology evaluation noted-supportive care, they will review plan with Donny Gonzalez, transfuse as needed as stated above
DVT prophylaxis-mechanical with severe thrombocytopenia
Nutrition
Early mobilization/bedside range of motion
Dr. Silva explained to patient that if parenchymal process is infectious it may be reversible, however, told him parenchymal and interstitial process may be metastatic disease which would be much more difficult to control
Eventual outpatient pulmonary hratws-ye-zlasjc emphysematous changes on CT, last low-dose lung cancer screening CT 04/07/2018-likely will receive repetitive imaging studies for his parotid cancer follow-up at [facility]; also considering the patient has
advanced stage IV non-lung cancer, screening does not seem appropriate as his parotid metastatic disease hinders any possibility for surgery for possible lung cancer. Defer future imaging studies to his providers at [facility].
Critical care statement: A total of 43 minutes of critical care time was provided for this patient today. This includes management of unstable vital signs, evaluation of the patient at bedside, reviewing the patient's pertinent medical records
including radiographs, pressor management, microbiology, laboratory evaluations, and discussion with primary team, consultants, pharmacy, nutrition, physical therapy, case management, charge nurse, critical care nursing, and respiratory therapy.
Diagnostic data:
Chest x-ray 12/17/2023-moderately extensive diffuse coarsening of interstitial markings throughout both lung edward suggesting diffuse interstitial pneumonia
CT hlvcp-jke-vweb lung cancer screening 04/07/2018-no discrete pulmonary nodules or focal parenchymal consolidation
CT chest 12/17/2023-numerous nodular opacifications suspicious for pulmonary metastatic disease, progression of osteoblastic metastatic disease in the chest, severe COPD
CT head 12/17/2023-no acute intracranial abnormalities, left mastoid effusion,
PET scan 08/19/2023-FDG avid left parotid gland mass with SUV max of 11.2 with adjacent FDG avid lymph nodes as well as posterior and anterior cervical chain in the left supraclavicular area, FDG avidity in the C2 vertebral process, few scattered
small foci of FDG avid B in ribs bilaterally
Subjective Dataa
Subjective Data
Date of Service:
Date of Service: December 21, 2023
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
Subjective:
Seen and evaluated this AM. Pt on levophed at 7mcg/min with BP 91/61, HR 107 and on 6L/min. RR 14 b/min, on 6 L/min via midflow NC with saturations 97%. More confused today, however when I saw the patient he seemed alert and oriented x 2,
communicating with me appropriately. Hands were dusky this morning. He has no complaints, denies chest pain, headache, abdominal pain, fevers or chills. Afebrile overnight.
Review of Systems
General: Other (Negative unless mentioned above)
Objective Data
Data Reviewed
Vital Signs / I&O / Oxygen:
Vital Signs
Temp Pulse Resp BP Pulse Ox
98.4 F 98 13 104/55 92
12/21/23 07:13 12/21/23 08:15 12/21/23 08:15 12/21/23 08:15 12/21/23 08:00
Intake and Output
12/20/23 12/21/23 12/22/23
06:59 06:59 06:59
Intake Total 2717.1 / 2824.6 2075.0 / 2165.0 1255.0 / 1255.0
Output Total 425 / 425 350 / 350 / 30
Balance 2292.1 / 2399.6 1725.0 / 1815.0 1225.0 / 1225.0
SaO2 92
Nasal Cannula flow liters per 6
minute
Physical Exam
General: Respiratory Distress (Negative), Comfortable and Other (Briggs catheter in place)
HEENT: Normocephalic, Anicteric, Moist Mucous Membranes and Other (Left facial droop)
Cardiovascular: S1-S2 and Peripheral Edema (Trace lower extremity pitting edema bilaterally)
Respiratory: Clear (Diminished breath sounds and prolonged expiratory time), Wheeze (n), Crackles (Negative), Rhonchi (n), Non-Labored Respirations, Accessory Resp Muscle Use (n) and Stridor (Negative)
GI: Soft, Non Distended and Non Tender
Neurology: Awake, Alert and Tremors (Negative)
Skin: Warm, Dry, Jaundice (n) and Rash (n)
Labs/Micro/Reports
Lab Data
12/21/23 04:07
12/21/23 04:07
Microbiology
12/17/23 15:16 Blood/Venous Blood Culture - Preliminary
No Growth in 72 hours- Final report to follow
12/18/23 12:57 Blood/Venous Blood Culture - Preliminary
No Growth in 48 hours- Final report to follow
12/17/23 23:15 Urine Urine Culture - Final
NO GROWTH
12/17/23 22:21 Nose Nasal Screen MRSA (PCR) - Final
MRSA not detected - performed by PCR methodology.
[2023-12-21] MEDS: SODIUM BICARBONATE 1150 MEQ IV (09:00)
[2023-12-21] MEDS: MERREM 500 MG IV ×2 (09:01→22:00)
[2023-12-21] MEDS: STERILE WATER FOR INJECTION 10 ML IV ×2 (09:01→22:00)
[2023-12-21] MEDS: OMNIPAQUE 50 ML PO (09:13)
[2023-12-21] MEDS: VANCOCIN 275 MG IV (09:14)
[2023-12-21 09:30] LABS: ALT (SGPT) 17 U/L (0-50); AST (SGOT) 82 U/L (17-59); Albumin 2.1 g/dl (3.5-5.0); Alkaline Phosphatase 250 U/L (38-126); Direct Bilirubin 0.6 mg/dl (0.0-0.4); Total Protein 4.1 g/dl (6.3-8.2)
[2023-12-21] MEDS: MYCAMINE 105 MG IV (11:12)
--- NOTE | 2023-12-21 11:15 | W.PN.CD ---
Today's Communication / Plan
-
Wean pressors as tolerated
Continue midodrine.
Echo with preserved LV function with dilated hypokinetic RV. Possibility of PE raised as noted lower extremity ultrasound negative. Challenging diagnostic and management issues as noted. Patient not on anticoagulation due to severe
thrombocytopenia
Impression / Plan
-
Elevated troponin. 0.4 this was the peak troponin on presentation. LV function normal. Suspect non-PA troponin in setting of hypertension and possible sepsis however patient also with RV dysfunction possibility of PE considered. .
-Continue supportive treatment
-Antibiotics as directed by primary team.
.
Hypotension. Patient with presumed sepsis on presentation now on Levophed.. Low blood pressure likely related to infection no other cause noted at this time. Possibility of pulmonary embolism is always a consideration and patient with
malignancy.. Patient had CT but did not have contrast. Patient has LOGAN. Echocardiogram shows normal left ventricular function but dilated hypokinetic RV which raised additional suspicion for PE. Lower extremity ultrasound without DVT. Concern
regarding risk of anticoagulation and patient whose platelets count is only 22. Issues have been reviewed with primary team.
-Challenging management issue. Patient still requiring Levophed
-Continue midodrine
-Ultrasound negative for DVT 12/20/2023.
-Possibility of PE still exists but with LOGAN patient not going to undergo CT to rule out PE and VQ scan would be limited with underlying pulmonary issues. Also concern regarding anticoagulation for reasons noted above. Would defer to primary team,
oncology and pulmonary critical care
.
Pneumonia. Patient with metastatic disease along with infiltrates
-Treatment as directed by pulmonary/ID and primary team
.
LOGAN - worsening. 3.2. Optimize hemodynamics. Nephrology following.
.
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
.
Anemia. Continue to monitor. No evidence of acute bleeding.
Physical Exam
Vital Signs/Labs
Vital Signs
Temp Pulse Resp BP Pulse Ox
98.1 F 102 10 106/58 49
12/21/23 10:14 12/21/23 11:00 12/21/23 11:00 12/21/23 11:00 12/21/23 10:15
12/20/23 12/21/23 12/22/23
06:59 06:59 06:59
Actual Weight 76.8 kg 77.7 kg
12/21/23 04:07
12/21/23 04:07
PT 16.2 Sec (11.4-14.6) H 12/17/23 20:37
INR 1.29 12/17/23 20:37
APTT 39.0 Sec (23.4-35.0) H 12/17/23 20:37
Magnesium 2.3 mg/dl (1.6-2.3) 12/18/23 03:29
LAB Results
12/18/23 12/19/23 12/19/23
15:26 00:15 04:03
Troponin I 0.232 H* D Cancelled 0.198 H*
Physical Exam
Constitutional: No acute distress
Cardiovascular: Rhythm & rate is regular
Respiratory: Wheeze Absent and Rhonchi Absent
GI: Soft and Non tender
Neuro/Psych: Alert and Oriented
Data Reviewed
-
Date of Service: December 21, 2023
Medical Decision Making: Reviewed Test Results
Echo: Report Reviewed by me
Medical Tests (PFT, Pathology etc): Report Reviewed by me
Labs: Labs Reviewed by me
[2023-12-21] MEDS: ZOFRAN 4 MG IV (11:20)
--- NOTE | 2023-12-21 12:37 | PTCARENOTE ---
Pt attempted to drink oral contrast, took in @ 250cc followed by N/V. Zofran given and CT abd/pelvis completed. Assessment unchanged.
[2023-12-21] MEDS: ProAmatine 10 MG PO ×2 (12:46→17:01)
[2023-12-21] MEDS: ROXICODONE 5 MG PO ×2 (15:29→23:46)
--- NOTE | 2023-12-21 15:35 | PTCARENOTE ---
Worsening cyanosis of right UE, now asymetrical, cool to touch. Quality Control notified and U/S study changed to duplex.
--- NOTE | 2023-12-21 16:21 | W.PN.HOSP.TC ---
Addendum entered and electronically signed by Ingrid Redman MD 12/21/23 18:43:
I saw and evaluated the patient independently. I reviewed the resident�s note and agree with findings and plan as documented by Dr. Calixto.
GENERAL: chronically ill appearing male in no apparent distress (retching with vomiting)
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
HEART: regular rate and rhythm, +S1, +S2, tachycardic
LUNGS : clear to auscultation bilaterally
ABDOM: soft, nontender, nondistended, + bowel sounds
EXT: no cyanosis, clubbing--right upper arm edema--PICC line
NEUROLOGIC: grossly intact except for facial palsy
: park cath
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
bilateral lungs with increasing bibasilar atelectasis and a new left posterior lower lobe consolidation with air bronchograms suspicious for pneumonia--Blood culture drawn -second set of blood cultures sent, pending--Continue Levophed and IVF with
bicarb -6 Levophed given this morning. Continue on Levophed per nephrology consult--puree diet and thin liquids per swallowing study. Speech therapy will follow up.
Pancytopenia--unclear if bone marrow involved--1 unit of pRBCs given due to severe anemia--Trend H&H, white blood cells, and platelets
Non anion gap acidosis--May be secondary to sepsis--Patient will be maintained on alkaline IV fluid per nephrology-- but more likely due to worsening LOGAN--apprec renal
Left parotid adenocarcinoma--�stable--Patient is requesting for his adenocarcinoma management to be switched from [facility] to [facility]. Will reach out to Oncology.
Acute kidney injury--Upon admission the patient has an elevated BUN of 72 and creatinine of 1.8-- Patient's renal function baseline is not known--Give hemodynamic support with fluids and vasopressors--Bladder scan protocol, maintain park as Kidney
and bladder ultrasound: Findings suggesting chronic outlet obstruction changes.
Essential hypertension--Patient has a history of hypertension on oral medication which we will hold. EKG shows nonspecific ST changes.
Hypoxic respiratory insufficiency--Suspected secondary to underlying lung disease. Support with oxygen for now and treat possible pneumonia--Aspiration precautions--Nebulizers as needed--CT of chest consistent with widely metastatic pulmonary
parenchymal disease versus diffuse infection--Severe emphysematous changes noted on CT lung--Ultrasound of the legs ruled out DVT--Upper extremity US was ordered due to new onset upper extremity edema which came back unremarkable. Picc line in right
arm.
DVT prophylaxis: Sequential compression devices
Full code
Total Critical Care Time 32 minutes. I was immediately available to the patient and staff. I personally examined, reviewed labs, diagnostic images/reports, interpretations, treatment plans, discussed patient care with other providers and family
or caregivers (if patient is unable to make decisions), entered orders as appropriate and documented the medical record.
Original Note:
Today's Communication/Plan
-
-Ordered US of right upper extremity due to new onset upper extremity edema
-Rule out DVT from picc line. US done and was unremarkable.
-Antibiotic regimen switched to vancomycin, meropenem and micafungin per ID.
-Nephrology did not recommend CUSTOMER COUNTER ASSOCIATE today but to maintain pressors to keep systolic 100 or greater, alkaline IV fluid, and maintain park.
Assessment / Plan
Assessment / Plan
- Clinical shock due to suspected sepsis: Monitoring
significant hypotension requiring vasopressors in the emergency department
Patient admitted to aspiration and chest x-ray shows signs of pneumonia with extensive diffuse coarsening of the interstitial markings throughout both lungs -clinical concern is either aspiration pneumonia/hospital acquired pneumonia versus other
interstitial lung processes.
Abdomen/Pelvic CT on 12/20 revealed numerous nodular densities throughout the bilateral lungs with increasing bibasilar atelectasis and a new left posterior lower lobe consolidation with air bronchograms suspicious for pneumonia.
Blood culture drawn -second set of blood cultures sent, pending
Continue Levophed and fluid -6 Levophed given this morning. Continue on Levophed per nephrology consult.
Vancomycin and Zosyn switched to vancomycin and meropenem today per ID consult.
Micafungin continued.
Patient will be put on a puree diet and thin liquids per swallowing study. Speech therapy will follow up.
Abdomen/Pelvic CT
- Pancytopenia: Monitoring -
1 unit of PRBCs given due to severe anemia
Trend H&H, white blood cells, and platelets -hemoglobin and hematocrit stable, white blood cells now within normal limits. Thrombocytopenia ongoing.
Will touch base with primary oncologist to see what his blood counts were prior to his presentation in the emergency department.
-Non anion gap acidosis: Monitoring
May be secondary to sepsis
Patient will be maintained on alkaline IV fluid per nephrology.
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
CT of the head ordered.
Patient is requesting for his adenocarcinoma management to be switched from [facility] to [facility]. Will reach out to Oncology.
-Acute kidney injury: Monitoring
Upon admission the patient has an elevated BUN of 72 and creatinine of 1.8. No acidosis and no significant fluid overload clinically. Patient's renal function baseline is not known.
Follow creatinine
Give hemodynamic support with fluids and vasopressors
Bladder scan protocol
Creatinine is 2.5 on 12/19. Its 3.2 on 12/20.
Kidney and bladder ultrasound: Findings suggesting chronic outlet obstruction changes.
Maintain folly. No indication for CUSTOMER COUNTER ASSOCIATE at this point per nephrology.
-Essential hypertension: Monitoring
Patient has a history of hypertension on oral medication which we will hold. EKG shows nonspecific ST changes.
-Hypoxic respiratory insufficiency: Monitoring
Suspected secondary to underlying lung disease. Support with oxygen for now and treat possible pneumonia.
High flow oxygen if needed
BiPAP if necessary
Aspiration precautions
Nebulizers as needed
CT of chest consistent with widely metastatic pulmonary parenchymal disease versus diffuse infection
Severe emphysematous changes noted on CT lung
Ultrasound of the legs ruled out DVT.
Upper extremity US was ordered due to new onset upper extremity edema which came back unremarkable. Pick line in right arm.
DVT prophylaxis: Sequential compression devices
Full code
Data:
Chest x-ray on 12/17/2023: Moderately extensive diffuse coarsening of the interstitial markings throughout both lungs, new when compared with the prior study suggesting diffuse interstitial pneumonia.
Chest CT on 12/17/2023: Numerous nodular opacities throughout both lungs considered most suspicious for pulmonary metastatic disease in the setting of known metastatic parotid adenocarcinoma. Progression of osteoblastic metastatic disease in the
chest. Severe chronic obstructive pulmonary disease.
Chest CT on 12/17/[address] on 12/17/2023: No acute intracranial abnormality. Left mastoid effusion.
Renal ultrasound on 12/20/23: Findings suggesting of chronic outlet obstruction changes
Echocardiogram on 12/20/2023: Hyperdynamic left ventricular systolic function. Estimated ejection fraction 70 to 75%. Dilated hypokinetic right ventricle. Mild tricuspid regurgitation.
Adbomen/Pelvis CT on 12/21/2023: Numerous nodular densities throughout the bilateral lungs with increasing bibasilar atelectasis and a new left posterior lower lobe consolidation with air bronchograms suspicious for pneumonia. Extensive osteoblastic
metastatic disease throughout the visualized axial skeleton and pelvis. Numerous subcentimeter hypodensities throughout the liver, some which are likely cysts, others aren't fully characterized given lack of IV contrast. Metastasis cannot be
excluded in the setting of known metastatic cancer. Small volume ascites with diffuse body wall edema.
Anticipated Discharge: > 48 hours
Subjective/Interval History
-
Date of Service: December 21, 2023
Patient was in good spirits. He said he has been sleeping more than usual. Overnight there were no notable events.
Objective Data
-
Labs:
Laboratory Results
12/21/23 12/21/23 12/21/23
04:07 08:41 18:00
WBC 5.1 Pending
Hgb 9.0 L Pending
Hct 26.2 L Pending
Plt Count 22 L* Pending
Sodium 129 L
Potassium 4.5
Chloride 104
Carbon Dioxide 17 L
BUN 79 H
Creatinine 3.2 H
Glucose 104 H
Calcium 7.3 L
Total Bilirubin 1.0 Cancelled
AST 82 H Cancelled
ALT 17 Cancelled
Alkaline Phosphatase 250 H Cancelled
Vital Signs:
Vital Signs
Temp Pulse Resp BP Pulse Ox
98.4 F 101 11 102/72 49
12/21/23 15:00 12/21/23 12:30 12/21/23 12:30 12/21/23 12:30 12/21/23 10:15
I&O
12/20/23 12/21/23 12/22/23
06:59 06:59 06:59
Intake Total 2717.1 / 2824.6 2075.0 / 2165.0 2140.2 / 2140.2
Output Total 425 / 425 350 / 350 117 / 117
Balance 2292.1 / 2399.6 1725.0 / 1815.0 2022.2 / 2022.2
Review of Systems
-
History Source: Patient
Constitutional: Reports Fatigue; Denies Fever
EENT: Reports No Symptoms Reported
Respiratory: Reports Trouble Breathing
Cardiac: Reports No Symptoms
Abdomen/GI: Reports Nausea and Vomiting
Musculoskeletal: Reports Edema
Skin: Reports No Symptoms
Neuro: Reports No Symptoms
Physical Exam
-
General: No Apparent Distress
HEENT: Normocephalic and Oxygen
Respiratory: Crackles (bilateral lower lobes)
Cardiac: Regular Rhythm and S1/S2; Negative Irregular Rhythm or Rub
GI: Soft, Nontender and Normal Bowel Sounds
Musculoskeletal: Edema, Right Upper Extrem and Edema, Left Upper Extrem
Neuro: AO x 3
Psych: Calm
Data Reviewed
-
Diagnostic Radiology: Report Reviewed by me, Discussed with Physician, Discussed with Nurse, Discussed with Patient and Discussed with Family
Labs: Labs Reviewed by me, Discussed with Physician, Discussed with Patient and Discussed with Family
--- NOTE | 2023-12-21 16:31 | CM ---
Patient seen at bedside with physicians. Patient brother also present. Patient brother confirmed logistics and plan is for home with VN vs SNF pending functional needs closer to discharge. CM will continue to follow for discharge planning needs.
Plan; home with VN vs SNF pending discharge planning needs.
[2023-12-21] MEDS: FLEXBUMIN 100 IV ×2 (16:32→22:00)
[2023-12-21 18:06] LABS: Hematocrit 25.6 % (39.0-52.0); Hemoglobin 9.1 g/dL (13.0-18.0); Mean Corp Hgb Conc. 35.5 g/dL (33.0-37.0); Mean Corpuscular Hgb 31.3 pg (27.0-31.0); Platelet Count 20 10^3/uL (130-400); Red Blood Cell Count 2.91 10^6/uL (4.70-6.10); Red Cell Dist. Width 20.2 % (11.5-14.5); White Blood Cell Count 5.6 10^3/uL (4.8-10.8)
[2023-12-21 18:10] LABS: INR 1.68; PT 19.6 Sec (11.4-14.6)
--- NOTE | 2023-12-21 18:10 | W.PN.ONC2 ---
Today's Communication / Plan
-
Peripheral smear review unremarkable, no platelet clumping, few to no fragments.
DIC panel in AM.
Not bleeding so far.
Impression
Impression
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
Pneumonia
Hypertension
Evidence of pulmonary nodule suggesting progressive disease
Thrombocytopenia
Plan
Plan
Supportive care
Treatment of pneumonia/sepsis as per primary team with broad-spectrum antibiotics
Our team has reviewed treatment plan with Donny Gonzalez
Hgb stable, platelets in low 20's.
Progressive renal failure noted.
Reviewed peripheral smear today, saw a couple bite cells but overall smear is not concerning for microangiopathic process.
DIC panel with AM labs.
Transfuse platelets<10K or with atypical bleeding
Will follow along
Subjective/Objective
Chief Complaint
Heme/Onc follow up of anemia, thrombocytopenia
Subjective
Denies new complaint. Seen awake in bed in ICU
Vital Signs:
Vital Signs
Temp Pulse Resp BP Pulse Ox
98.4 F 103 11 111/76 87
12/21/23 15:00 12/21/23 18:00 12/21/23 18:00 12/21/23 18:00 12/21/23 17:45
Lab Results:
Laboratory Data
WBC 5.6 10^3/uL (4.8-10.8) 12/21/23 17:47
Hgb 9.1 g/dL (13.0-18.0) L 12/21/23 17:47
Plt Count 20 10^3/uL (130-400) L* 12/21/23 17:47
PT 16.2 Sec (11.4-14.6) H 12/17/23 20:37
INR 1.29 12/17/23 20:37
APTT 39.0 Sec (23.4-35.0) H 12/17/23 20:37
eGFR 20.05 12/21/23 04:07
Physical Exam
HEENT: Moist Mucous Membranes; No Jaundice
Cardiology: Normal Sinus Rhythm, S1 and S2
Pulmonary: Clear
GI: Soft and Normal Bowel Sounds
Extremities: Pulses Present and No C/C/E
Neuro: Non Focal
Orders
Orders
Orders From Last 24 Hours
12/21/23 17:47
Fibrinogen Routine
PT/INR [Prothrombin Time] Routine
PTT Routine
[2023-12-21 18:11] LABS: APTT 46.6 Sec (23.4-35.0)
[2023-12-21 18:53] LABS: Fibrinogen 154 MG/DL (199-459)
[2023-12-21] MEDS: COLACE PO (19:34)
[2023-12-21] MEDS: SENOKOT PO (19:35)
--- NOTE | 2023-12-21 20:00 | PTCARENOTE ---
Rec'd pt resting in bed, at bedside and updated on plan of care, pt cooperative, follows commands, very weak, forgetful, ST, to keep sbp > 100 w/ levophed- presently at 7 arnel, see flow sheet for titrations, distal pulses via doppler, radials
weak, fingers dusky, + anasarca, o2 6 liters , sat 98, lungs decr, crackles in bases, reaches 1500 on IS, FRIEND, hyper bowel sounds, inc sm amt loose brown stool, florence care given, abd soft, round, no n/v, park draining cloudy yellow urine
[2023-12-21] MEDS: DESYREL 50 MG PO (22:00)
--- NOTE | 2023-12-21 22:00 | PTCARENOTE ---
inc lg amt liquid brown stool, florence care given, rectal trumpet inserted to str drainage bag
[2023-12-22] VITALS (55 sets, daily range): BP systolic 81–131; BP diastolic 46–83; BMI 24.5
--- NOTE | 2023-12-22 | PTCARENOTE ---
sys reviewed, sat 81%, incr to 10 liters midflow, sat incr to 92%, CHG bath done, linens changed
--- NOTE | 2023-12-22 03:04 | PTCARENOTE ---
sat 89, incr to 12 liters midflow
[2023-12-22 03:39] LABS: Hematocrit 23.3 % (39.0-52.0); Hemoglobin 8.3 g/dL (13.0-18.0); Mean Corp Hgb Conc. 35.6 g/dL (33.0-37.0); Mean Corpuscular Hgb 31.6 pg (27.0-31.0); Mean Corpuscular Volume 88.6 fL (80.0-94.0); Platelet Count 18 10^3/uL (130-400); Red Blood Cell Count 2.63 10^6/uL (4.70-6.10); Red Cell Dist. Width 19.9 % (11.5-14.5); White Blood Cell Count 4.4 10^3/uL (4.8-10.8)
[2023-12-22 03:49] LABS: Vancomycin Random 22.9 ug/ml
--- NOTE | 2023-12-22 03:50 | PTCARENOTE ---
Pamela Amin NP aware of plt count
[2023-12-22 03:57] LABS: Blood Urea Nitrogen 88 mg/dl (9-20); Calcium 7.1 mg/dl (8.4-10.2); Carbon Dioxide 20 mmol/L (22-30); Chloride 100 mmol/L (98-107); Estimated Creatinine Clearance 21 ml/min; Glucose 106 mg/dl (70-99); Iron 132 ug/dl (49-181); Magnesium 1.8 mg/dl (1.6-2.3); Phosphorus 5.5 mg/dl (2.5-4.5); Potassium 4.6 mmol/L (3.5-5.1); Sodium 129 mmol/L (135-145); eGFR 18.01
[2023-12-22] MEDS: FLEXBUMIN 100 IV (03:57)
--- NOTE | 2023-12-22 04:04 | PTCARENOTE ---
sys reviewed, changes noted, resting comf
[2023-12-22 04:05] LABS: Percent Saturation 77 % (20-50); Total Iron Binding Capacity 170 ug/dl (261-462)
[2023-12-22 05:49] LABS: Absolute Neutrophils -Man Diff 3.8 10^3/uL (1.4-6.5); Anisocytosis 1+; Band Neutrophils 18 % (0-3); Lymphocytes 1 % (20-51); Metamyelocytes 6 % (-); Monocytes 4 % (2-9); Myelocytes 1 % (-); Normal RBC Morphology No; Nucleated Red Blood Cells 2 (-); Platelets Checked Yes; Segmented Neutrophils 70 % (42-75)
[2023-12-22 05:50] LABS: Polychromasia 1+
[2023-12-22 05:51] LABS: Reticulocyte Count 3.6 % (0.4-2.8); Total Cells Counted 100; Toxic Granulation 1+
[2023-12-22 05:52] LABS: Basophilic Stippling Occasional; Ovalocytes Occasional; Tear Drop Red Blood Cells Occasional
[2023-12-22] MEDS: SODIUM BICARBONATE 1150 MEQ IV (07:43)
[2023-12-22] MEDS: POLYSPORIN OINTMENT 1 APPLIC TOPICAL ×2 (07:43→19:40)
[2023-12-22] MEDS: NON-FORMULARY ITEM TOPICAL ×2 (07:44→19:45)
[2023-12-22] MEDS: CRESTOR 20 MG PO (07:44)
[2023-12-22] MEDS: ROXICODONE 5 MG PO ×3 (07:44→23:00)
[2023-12-22] MEDS: FLOMAX 0.4 MG PO ×2 (07:44→19:41)
[2023-12-22] MEDS: ProAmatine 10 MG PO ×3 (07:44→18:19)
[2023-12-22] MEDS: COLACE 100 MG PO (07:45)
[2023-12-22] MEDS: SENOKOT PO (07:45)
[2023-12-22] MEDS: MIRALAX PO (07:45)
--- NOTE | 2023-12-22 07:59 | W.PN.NEPH.PH ---
Today's Communication / Plan
-
80 mg IV Lasix provided
Will discontinue IV fluids
No dialysis requirement yet.....
Assessment/Plan
-
IMP:
Clinical shock with initial suspicion of septic shock
Acute hypoxic respiratory failure/suspected pneumonia
Acute kidney injury
metastatic left parotid tumor
Pancytopenia
Elevated troponin
Hyponatremia
Non gap metabolic acidosis
Hypoalbuminemia
COPD
h/o HTN
HLD
PLan:
A/w gen weakness and noted in clinical shock (culture negative)
LOGAN-cr steady increase , no baseline available , now up to 3.5 and oliguric with urine output noted at 350 cc, weights rising
Remains hemodynamically labile on pressor support
Peripheral smear not consistent with microangiopathic process in setting of renal failure and thrombocytopenia
UA with ?UTI sample but cx neg, renal US chronic GÓMEZ
Will provide 80 mg of IV Lasix as weights rising and patient with increasing sob, D/C bicarb fluids
Maintain Briggs catheter
I think he could have ischemic ATN vs obst vs AIN vs other causes
rechecked UA with U eosinophils (-), Fena
he is 9kg over his admit wt and on 8lit mid flow O2, noted evolving infiltrate on chest x-ray
no emergent need of HEM INSPECTOR however has high risk if no improvement in 24-48hrs
titrate pressors to keep SBP>90, cortisol was ok, ,add midodrine
Echo reveals preserved LV function but hypokinetic right ventricle: This could be part of the causality of his hypotension
avoid nephrotoxins and adjust meds renally
d/w nursing and pt
Patient is critically ill with worsening renal failure and pressor dependent hypotension
Total Time Spent with Patient (in minutes): 31 minutes of critical care time
-
-
Date of Service: December 22, 2023
CC / HPI / ROS
-
Chief Complaint:
Acute kidney injury
History of Present Illness:
Acute kidney injury worsened
Hemodynamically labile on pressor support
Metabolic acidosis improved on sodium bicarbonate infusion
Thrombocytopenia persist
Review of Systems:
Oliguric via Briggs
Oxygen dependent
No chest pain
Weight is up 9 kg
More short of breath
No fevers
Labs
-
Labs:
WBC 4.4 10^3/uL (4.8-10.8) L 12/22/23 03:13
RBC 2.63 10^6/uL (4.70-6.10) L 12/22/23 03:13
Hgb 8.3 g/dL (13.0-18.0) L 12/22/23 03:13
Hct 23.3 % (39.0-52.0) L 12/22/23 03:13
Plt Count 18 10^3/uL (130-400) L* 12/22/23 03:13
Sodium 129 mmol/L (135-145) L 12/22/23 03:13
Potassium 4.6 mmol/L (3.5-5.1) 12/22/23 03:13
Chloride 100 mmol/L (98-107) 12/22/23 03:13
Carbon Dioxide 20 mmol/L (22-30) L 12/22/23 03:13
BUN 88 mg/dl (9-20) H 12/22/23 03:13
Creatinine 3.5 mg/dL (0.7-1.3) H 12/22/23 03:13
eGFR 18.01 12/22/23 03:13
Glucose 106 mg/dl (70-99) H 12/22/23 03:13
Calcium 7.1 mg/dl (8.4-10.2) L 12/22/23 03:13
Phosphorus 5.5 mg/dl (2.5-4.5) H 12/22/23 03:13
Albumin Cancelled 12/21/23 08:41
Physical Exam
-
Vital Signs:
Vital Signs
Temp Pulse Resp BP Pulse Ox
98.8 F 104 15 119/68 91
12/22/23 03:30 12/22/23 06:15 12/22/23 06:15 12/22/23 06:00 12/22/23 06:00
Cardiovascular:: Regular rate and rhythm
Respiratory:: Bilateral: Coarse
Lung Excursion:: Normal
Abdomen:: Nontender and Soft
Bowel Sounds:: Normal
Extremity Edema:: +1: Bilateral: (Central)
Briggs Catheter: Yes
--- NOTE | 2023-12-22 08:00 | PN.CDI ---
CDI
- -
CDI:
Physician Documentation Request
Admit Date: 12/17/23 17:59
Dear Doctor Marily,
Please review the following and provide your response in the progress notes.
Clinical Indicators:
- Utility Bill Complaints Investigator indicates severe protein calorie malnutrition
- Unintentional weight loss >7.5% in 3 months
- Poor nutrient intake <75% of estimated energy needs for >/=1 month
Based on the above information and your assessment, which of the following most accurately represents the patient's nutritional status?
Severe protein calorie malnutrition
Other
[place] Criteria ([facility] Hospitalist 2017)
2 or more criteria must be present for either
non severe or severe malnutrition
Note that the criteria differs related to the
presence of an acute or chronic illness
Acute Illness Chronic Illness
Energy Intake Non Severe: <75% for >7 days Non Severe: <75% for >1 month
Severe: <50% for >5 days Severe: <75% for >1 month
Weight Loss Non Severe: 1-2% over 1 week Non Severe: 5% over 1 month
5% over 1 month 7.5% over 3 months
7.5% over 3 months 10% over 6 months
1 year N/A 20% over 1 year
Severe: >2% over 1 week Severe: >5% over 1 month
>5% over 1 month >7.5% over 3 months
>7.5% over 3 months >10% over 6 months
1 year N/A >20% over 1 year
Body Fat Non Severe: Mild Decrease Non Severe: Mild Loss
Severe: Moderate Decrease Severe: Severe Loss
Muscle Mass Non Severe: Mild Decrease Non Severe: Mild Loss
Severe: Moderate Decrease Severe: Severe Loss
Fluid Accumulation Non Severe: Mild Accumulation Non Severe: Mild Accumulation
Severe: Moderate to severe Severe: Moderate to severe
accumulation accumulation
Reduced Crusher Operator Strength Non Severe: N/A Non Severe: N/A
Severe: Measurably reduced Severe: Measurably reduced
Additional criteria that can be used to Determine if Mild or Moderate Malnutrition ([employer] Manual 2018)
Mild Moderate Severe
Albumin gm/dl <3.0 gm/dl <2.5 gm/dl <2.0 gm/dl
Pre Albumin mg/dl <15 gm/dl <10 mg/dl <5.0 mg/dl
BMI <18.5 <17 <16
Use of terms such as suspected, likely, concern for, or probable (associated with a specific diagnosis that is being evaluated, monitored, or treated as if it exists) are acceptable and can be coded in the inpatient setting, when documented at the
time of discharge.
Thank you,
Rodriguez Briones RN
CDI Specialist
Please use your independent medical judgment in providing your response.
[2023-12-22] MEDS: ADVAIR HFA 115/21 MCG INHALER 2 PUFF INH ×2 (08:03→20:03)
--- NOTE | 2023-12-22 08:10 | PTCARENOTE ---
Rec'd pt resting in bed, pt cooperative, follows commands, very weak, forgetful, ST, to keep sbp > 100 w/ levophed- presently at 3mcg, see flow sheet for titrations, distal pulses via doppler, radials weak, fingers dusky, + anasarca, MF NC 12 liters
, SpO2 91%, lungs with crackles in bases, ins/exp wheezes. reaches 1999 on IS, FRIEND, hyper bowel sounds, rectal trumpet with sm amt loose brown stool, florence care given, abd soft, round, no n/v, park draining cloudy yellow urine.
--- NOTE | 2023-12-22 08:14 | PN.CDI ---
CDI
- -
CDI:
Physician Documentation Request
Admit Date: 12/17/23 17:59
Dear Doctor Marily,
Please review the following and provide your response in the progress notes.
Clinical Indicators:
- 12/20 PN 'Hypoxic respiratory insufficiency'
- 12/17-12/20 documented 6-8L O2, pulse ox >88%
- 12/16 admission 98% on room air
- 12/17 RN note 'SPAO2 dropped to high 80's , increased oxygen via nasal canula from 2 to 5 liters'
Clarify which of the following accurately represents the patient's respiratory status:
Acute hypoxic respiratory failure
Hypoxia
Other
Additional information for Respiratory Failure:
Recognized criteria for Respiratory Failure (Source: [facility] Mar 2013)
ABGs: (1 or more) Symptoms Please indicate type if known
1. p)2 <60 or RA SPO2 <91% on RA 1. Tachypnea, SOB, dyspnea Hypoxic
2. pCO2 50 and pH <7.35 2. Use of accessory muscles Hypercapnic
3. pO2 decrease of pCO2 increase by 3. Pallor or cyanosis Hypoxic and Hypercapnic
10 mmHg from baseline if known 4. Anxiety or restlessness Unable to determine
5. Unable to speak in full sentences
Supplemental O2 of > 40% (5LPM) Intubation is not required
Use of terms such as suspected, likely, concern for, or probable (associated with a specific diagnosis that is being evaluated, monitored, or treated as if it exists) are acceptable and can be coded in the inpatient setting, when documented at the
time of discharge.
Thank you,
Rodriguez Briones RN
CDI Specialist
Please use your independent medical judgment in providing your response.
[2023-12-22] MEDS: LASIX 80 MG IV (08:24)
--- NOTE | 2023-12-22 08:25 | PN.CDI ---
CDI
- -
CDI:
Physician Documentation Request
Admit Date: 12/17/23 17:59
Dear Doctor Marily,
Please review the following and provide your response in the progress notes.
Clinical Indicators:
- 12/20 PN 'Hypoxic respiratory insufficiency'
- 12/20 Nephrology 'Acute hypoxic respiratory failure'
- 12/17-12/20 documented 6-8L O2, pulse ox >88%
- 12/16 admission 98% on room air
- 12/17 RN note 'SPAO2 dropped to high 80's , increased oxygen via nasal canula from 2 to 5 liters'
In an attempt to clarify potentially conflicting documentation, please clarify the respiratory status:
Acute hypoxic respiratory failure
Hypoxia
Other
Additional information for Respiratory Failure:
Recognized criteria for Respiratory Failure (Source: [facility] Mar 2013)
ABGs: (1 or more) Symptoms Please indicate type if known
1. p)2 <60 or RA SPO2 <91% on RA 1. Tachypnea, SOB, dyspnea Hypoxic
2. pCO2 50 and pH <7.35 2. Use of accessory muscles Hypercapnic
3. pO2 decrease of pCO2 increase by 3. Pallor or cyanosis Hypoxic and Hypercapnic
10 mmHg from baseline if known 4. Anxiety or restlessness Unable to determine
5. Unable to speak in full sentences
Supplemental O2 of > 40% (5LPM) Intubation is not required
Use of terms such as suspected, likely, concern for, or probable (associated with a specific diagnosis that is being evaluated, monitored, or treated as if it exists) are acceptable and can be coded in the inpatient setting, when documented at the
time of discharge.
Thank you,
Rodriguez Briones RN
CDI Specialist
Please use your independent medical judgment in providing your response.
--- NOTE | 2023-12-22 08:28 | PN.CDI ---
CDI
- -
CDI:
Physician Documentation Request
Admit Date: 12/17/23 17:59
Dear Cardiology,
Please review the following and provide your response in the progress notes.
Clinical Indicators:
- 12/19 Cardiology 'non-VT troponin versus type II VT in the setting of hypotension and suspected sepsis'
- 12/20 Cardiology 'Suspect non-VT troponin in setting of hypertension and possible sepsis'
Laboratory Tests
12/18/23 12/18/23 12/19/23
03: 15:26 04:03
Troponin I 0.409 H* 0.232 H* D 0.198 H*
Please clarify the following regarding the documented elevated troponins:
Non-ischemic myocardial injury
Type II VT
Other
Use of terms such as suspected, likely, concern for, or probable (associated with a specific diagnosis that is being evaluated, monitored, or treated as if it exists) are acceptable and can be coded in the inpatient setting, when documented at the
time of discharge.
Thank you,
Rodriguez Briones RN
CDI Specialist
Please use your independent medical judgment in providing your response.
--- NOTE | 2023-12-22 08:50 | W.PN.INTV ---
Today's Communication / Plan
Recommendations
Check brain MRI
Start DuoNebs + solumedrol given worsening SOB in setting of advanced COPD/emphysema although seems he is having worsening pulmonary mets as primary cause of his SOB
Consult palliative care
Transfuse platelet to reach >20k as he is at risk of spontaneous intracranial hemorrhage
Continue antibiotics per ID
Pressors with goal MAP>65
Midodrine to help wean off levophed
Wean oxygen as tolerated
RUE venous and arterial US given duskiness with slightly cool r-hand, although no pain, sensory loss or weakness reported in his RUE --> if duskiness worsens then consult vascular surgery
Assessment
-
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
Impression:
Sepsis with shock unresponsive to fluids requiring pressors
Pneumonia-aspiration versus widely metastatic disease to the lung parenchyma
Pancytopenia with worsening thrombocytopenia likely due to bone marrow infiltration of parotid adenocarcinoma
Altered mental status/confusion
Anemia s/p transfusion with 1 unit PRBC on 12/17/2023
Lactic acidosis � resolved as of evening on 12/17/2023
LOGAN � worsening
Mild hyperglycemia
Hypoalbuminemia
Elevated troponin likely due to demand ischemia with type II TN
Conditions present prior to admission:
Hypertension.
Hyperlipidemia.
COPD with severe centrilobular emphysema-followed by primary-on Advair and albuterol as needed
Former smoker (79-ygtp-aigd history, quit 2021)
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
BPH
Plan:
Continues to be critically ill requiring pressors
Supplement oxygen as needed- now on 12L/min via midflow from 6L/min yesterday
High flow oxygen if needed
BiPAP if necessary
Intubate and mechanically ventilate if necessary, although GOC discussion held as doubt he would benefit from mechanical ventilation in setting of worsening multiorgan failure and suspected pulmonary/liver mets
Aspiration precautions per protocol
Nebulizers if needed-currently not bronchospastic
CT chest consistent with extensive bilateral pulmonary parenchymal disease-diffuse infection versus metastatic/lymphangitic
Note: Severe emphysematous changes noted on CT lungs-suspect he has significant underlying COPD to start with
Start duonebs TID + solumedrol given he has COPD and is more SOB, although likely due to worsening pulmonary mets
Cultures reviewed
Blood zunscjph-gixovwq-qruyfder thus far
Urine cultures no growth
MRSA screen negative
Empiric antibiotics-vancomycin and Zosyn initiated-now on meropenem, IV vanco and micafungin
Infectious disease following-correspondence reviewed
Trend leukocytosis & fever curve
Continue levophed and wean as tolerated to maintain MAP>65
Continue midodrine at 10mg TID
On 12/20 I started albumin and given 25g 25% x 3 doses given low serum albumin
Cardiology following-correspondence reviewed-reviewed personally with Dr. Marquez
No longer need to trend troponin given it peaked at 0.49 on 12/18/2023
Monitor renal function, and renally dose all meds + Abx
Nephrology consulted with recs appreciated
Given confusion and worsening LOGAN, stopped gabapentin on 12/20--> resume once Cr + AMS improves
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
TTE performed on 12/12/2023 shows hyperdynamic systolic function with LVEF 70-75% with dilated, hypokinetic RV, which is new compared to prior TTE from 05/2022
Lower extremity ultrasound negative for DVT
Not a candidate for CT/PE protocol and VQ scan would unlikely be productive in this patient with significant COPD and diffuse parenchymal abnormalities- Dr. Silva previously reviewed with Dr. Madrid
Trend WBC
Trend Hb and plt --> transfuse as needed to keep Hb>7g/dL, plt>20k
Give 1 unit platelets today and repeat CBC at 1600; he is at risk of spontaneous intracranial hemorrhage
Oncology evaluation noted-supportive care, they will review plan with Donny Gonzalez, transfuse as needed as stated above
DVT prophylaxis-mechanical with severe thrombocytopenia
Nutrition
Start stress ulcer ppx with PPI given thrombocytopenia
Early mobilization/bedside range of motion
Dr. Silva explained to patient that if parenchymal process is infectious it may be reversible, however, told him parenchymal and interstitial process may be metastatic disease which would be much more difficult to control
Eventual outpatient pulmonary tgyqty-eb-iunaez emphysematous changes on CT, last low-dose lung cancer screening CT 04/07/2018-likely will receive repetitive imaging studies for his parotid cancer follow-up at [facility]; also considering the patient has
advanced stage IV non-lung cancer, screening does not seem appropriate as his parotid metastatic disease hinders any possibility for surgery for possible lung cancer. Defer future imaging studies to his providers at [facility].
GOC: Consult palliative care as pt has guarded prognosis with metastatic disease with suspected pulmonary and liver mets, now with worsening hypoxia., I also discussed goals of care with CODE STATUS and asked how aggressive they would like to be
with medical management given and they would like to continue full medical management for now although they are HD today and learning more about hospice and if things continue to deteriorate, I believe that the patient and the family would
transition to comfort care at that time, but as of right now they would like to continue full medical management and full code
Critical care statement: A total of 47 minutes of critical care time was provided for this patient today. This includes management of unstable vital signs, evaluation of the patient at bedside, reviewing the patient's pertinent medical records
including radiographs, pressor management, microbiology, laboratory evaluations, and discussion with primary team, consultants, pharmacy, nutrition, physical therapy, case management, charge nurse, critical care nursing, and respiratory therapy.
Diagnostic data:
Chest x-ray 12/22/2023- Stable diffuse coarsening of the interstitial markings throughout both lungs with bilateral pulmonary nodules better demonstrated on the 12/17/2023 examination suggesting pulmonary metastasis with superimposed interstitial
pneumonia; small new left pleural effusion with associated atelectasis at the retrocardiac left lung base
Chest x-ray 12/17/2023-moderately extensive diffuse coarsening of interstitial markings throughout both lung edward suggesting diffuse interstitial pneumonia
CT tiowq-siz-piyw lung cancer screening 04/07/2018-no discrete pulmonary nodules or focal parenchymal consolidation
CT chest 12/17/2023-numerous nodular opacifications suspicious for pulmonary metastatic disease, progression of osteoblastic metastatic disease in the chest, severe COPD
CT head 12/17/2023-no acute intracranial abnormalities, left mastoid effusion,
PET scan 08/19/2023-FDG avid left parotid gland mass with SUV max of 11.2 with adjacent FDG avid lymph nodes as well as posterior and anterior cervical chain in the left supraclavicular area, FDG avidity in the C2 vertebral process, few scattered
small foci of FDG avid B in ribs bilaterally
Subjective Dataa
Subjective Data
Date of Service:
Date of Service: December 22, 2023
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
Subjective:
Pt seen and evaluated this AM. Cr worsening. - still producing minimal urine. Given lasix 80mg IVP x1 this AM with 30cc output. Bicarb gtt is now off. More dyspneic this AM. Patient feels short of breath, but denies chest pain, headache,
abdominal pain, fevers or chills. On 12L/min via midflow with SpO2 87%. On levophed at 2mcg/min, BP 107/62, HR 108. Having loose stools. Occasionally confused. Patient's , Michael, and patient's brother, Alok, at bedside, and all questions
were answered. Platelet count is 18 this morning and 1 unit platelets being transfused
Review of Systems
General: Other (Negative unless mentioned above.)
Objective Data
Data Reviewed
Vital Signs / I&O / Oxygen:
Vital Signs
Temp Pulse Resp BP Pulse Ox
98.0 F 111 21 119/68 90
12/22/23 08:18 12/22/23 08:08 12/22/23 08:08 12/22/23 06:00 12/22/23 08:08
Intake and Output
12/21/23 12/22/23 12/23/23
06:59 06:59 06:59
Intake Total 2075.0 / 2165.0 3695.7 / 3767.0 273.9 / 273.9
Output Total 350 / 350 457 / 472 65 / 65
Balance 1725.0 / 1815.0 3238.7 / 3295.0 208.9 / 208.9
SaO2 90
Nasal Cannula flow liters per 6
minute
Physical Exam
General: Respiratory Distress (mild at rest, worse with activity), Comfortable and Other (Briggs catheter in place)
HEENT: Normocephalic, Anicteric, Moist Mucous Membranes and Other (Left facial droop)
Cardiovascular: S1-S2 and Peripheral Edema (Trace lower extremity pitting edema bilaterally)
Respiratory: Clear (Diminished breath sounds and prolonged expiratory time), Wheeze (n), Rhonchi (n), Accessory Resp Muscle Use (mild at rest, worse with activity), Stridor (Negative) and Other (Coarse BS heard bilaterally)
GI: Soft, Non Distended and Non Tender
Neurology: Awake, Tremors (Negative) and Other (Confused at times)
Skin: Warm, Dry, Jaundice (n) and Rash (n)
Labs/Micro/Reports
Lab Data
12/22/23 03:13
12/22/23 03:13
Laboratory Results
12/21/23
17:47
PT 19.6 H
INR 1.68
APTT 46.6 H
Microbiology
12/17/23 15:16 Blood/Venous Blood Culture - Preliminary
No Growth in 4 days- Final report to follow
12/18/23 12:57 Blood/Venous Blood Culture - Preliminary
No Growth in 72 hours- Final report to follow
12/17/23 23:15 Urine Urine Culture - Final
NO GROWTH
--- NOTE | 2023-12-22 09:00 | W.PN.ID1 ---
Date of Service
Date of Service: December 22, 2023
Today's Communication
Progressive renal failure noted
CT/CXR with suggestion of HCAP
obtain sputum if able
continue vanc/subha/micafungin
remains critically ill - prognosis guarded
Assessment / Plan
Shock - suspected septic
Suspected Hospital Acquired Pneumonia
Pancytopenia - improved
LOGAN - progressive
left parotid gland adenocarcinoma - not on immunosuppressive drugs
- pressor requirements may be improving
- sputum culture if able - CXR/CT with suggestion of pneumonia - would be hospital acquired
- blood cultures x2 in progress - no growth to date
- echo with hyperkinetic EF, does not appear to be cardiogenic shock
- renally dose antibiotics:
- continue vancomycin/meropenem day 2
- continue micafungin day 3
- oncology following
- follow clinically, patient remains critically ill - prognosis guarded
Chief Complaint
-: Other (shock)
Subjective / Review of Systems
afebrile
down to 3 mcg/min of norepi - improved compared to yesterday
increased tachycardia
pancytopenia ongoing
worsening renal function
lfts minimally elevated ast
CT a/p suspicion of pneumonia in the left lower lobe; I agree there are airbronchograms on my evaluation
Vital Signs / Physical Exam
Vital Signs
Vital Signs
Temp Pulse Resp BP Pulse Ox
98.0 F 111 21 119/68 90
12/22/23 08:18 12/22/23 08:08 12/22/23 08:08 12/22/23 06:00 12/22/23 08:08
Physical Exam
Constitutional: Acutely Ill and Chronically Ill
Cardiovascular: Regular Rate and S1/S2; Negative Murmur or Rub
Pulmonary: Clear and Symmetric; Negative Wheezes or Rales
Gastrointestinal: Soft, Non Tender, Non Distended and Normal Bowel Sounds
Skin: Warm and Dry; Negative Rash or Jaundice
Objective Data
Lab Data
Lab Results
12/22/23 03:13
12/22/23 03:13
PT 19.6 Sec (11.4-14.6) H 12/21/23 17:47
INR 1.68 12/21/23 17:47
APTT 46.6 Sec (23.4-35.0) H 12/21/23 17:47
Estimated Creat Clear 21 ml/min 12/22/23 03:13
Lactic Acid Cancelled 12/18/23 01:58
Total Bilirubin Cancelled 12/21/23 08:41
AST Cancelled 12/21/23 08:41
ALT Cancelled 12/21/23 08:41
Alkaline Phosphatase Cancelled 12/21/23 08:41
Most recent labs reviewed.
Micro Results:
12/17/23 15:16 Blood Culture - Preliminary
Blood/Venous No Growth in 4 days- Final report to follow
12/18/23 12:57 Blood Culture - Preliminary
Blood/Venous No Growth in 72 hours- Final report to follow
12/17/23 23:15 Urine Culture - Final
Urine NO GROWTH
12/17/23 22:21 Nasal Screen MRSA (PCR) - Final
Nose MRSA not detected - performed by PCR methodology.
Care Review
Plan reviewed with: Physician (Dr Mishra - THROW OUT CLERK)
--- NOTE | 2023-12-22 09:22 | W.PN.HOSP.TC ---
Addendum entered and electronically signed by Ingrid Redman MD 12/22/23 20:43:
I saw and evaluated the patient independently. I reviewed the resident�s note and agree with findings and plan as documented by Dr. Calixto.
GENERAL: chronically ill appearing male in no apparent distress --falls asleep while talking to us
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
HEART: regular rate and rhythm, +S1, +S2, tachycardic
LUNGS : clear to auscultation bilaterally
ABDOM: soft, nontender, nondistended, + bowel sounds
EXT: no cyanosis, clubbing--right upper arm edema--PICC line
NEUROLOGIC: grossly intact except for facial palsy
: park cath
septic shock due to possible pneumonia (pt admitted to aspiration)--significant hypotension requiring vasopressors--apprec big data analytics lead and ID--vanco/meropenem/micafungin--Abdomen/Pelvic CT on 12/20 revealed numerous nodular densities throughout the
bilateral lungs with increasing bibasilar atelectasis and a new left posterior lower lobe consolidation with air bronchograms suspicious for pneumonia--Blood culture drawn -second set of blood cultures sent, pending--Continue Levophed and IVF with
bicarb --Continue on Levophed per nephrology consult--puree diet and thin liquids per swallowing study, after speech eval, now on minced/moist-- Speech therapy will follow up.
Pancytopenia--unclear if bone marrow involved, although likely--1 unit of pRBCs given due to severe anemia--Trend H&H, white blood cells, and platelets
Non anion gap acidosis--May be secondary to sepsis-- IV fluid per nephrology, stopped. lasix given as weight up since admission-- worsening LOGAN--apprec renal
Left parotid adenocarcinoma--�stable--Patient is requesting for his adenocarcinoma management to be switched from [place] to [place].
Acute kidney injury, worsening despite IVF and park cath--Upon admission the patient has an elevated BUN of 72 and creatinine of 1.8---Give hemodynamic support with fluids and vasopressors--Bladder scan protocol, maintain park as Kidney and
bladder ultrasound: Findings suggesting chronic outlet obstruction changes--agree with urine eos
Essential hypertension--Patient has a history of hypertension on oral medication which we will hold. EKG shows nonspecific ST changes.
Hypoxic respiratory failure--now on 12 L O2--Suspected secondary to underlying lung disease. Support with oxygen for now and treat possible pneumonia--Aspiration precautions--Nebulizers as needed--CT of chest consistent with widely metastatic
pulmonary parenchymal disease versus diffuse infection--Severe emphysematous changes noted on CT lung--Ultrasound of the legs ruled out DVT--Upper extremity US was ordered due to new onset upper extremity edema which came back unremarkable. Picc
line in right arm.
DVT prophylaxis: Sequential compression devices
Full code
spoke at length with pt at bedside and updated situation--explained cannot rule out metastatic disease in the lungs and liver--told them we may not be able to get off pressors--meanwhile, Dr. Cedillo ordered MRI for mental status change at
request of oncology AND acute to subacute infarcts noted--ECHO done earlier showed no vegetations--carotid US ordered--with low platelets cannot give asa/plavix--all this adds to his poor prognosis
Total Critical Care Time 45 minutes. I was immediately available to the patient and staff. I personally examined, reviewed labs, diagnostic images/reports, interpretations, treatment plans, discussed patient care with other providers and family
or caregivers (if patient is unable to make decisions), entered orders as appropriate and documented the medical record.
Original Note:
Today's Communication/Plan
-
Patient had a head MRI to evaluate waxing and waning noted by ICU big data analytics lead. Work up for TTP with repeat peripheral blood smear, LDH and LFTs will be done. Urine eosinophils will be ordered to evaluate for nephrotoxic response to antibiotic
regimen.
Assessment / Plan
Assessment / Plan
- Clinical shock due to suspected sepsis: Monitoring
significant hypotension requiring vasopressors in the emergency department
Patient admitted to aspiration and chest x-ray shows signs of pneumonia with extensive diffuse coarsening of the interstitial markings throughout both lungs -clinical concern is either aspiration pneumonia/hospital acquired pneumonia versus other
interstitial lung processes.
Abdominal/Pelvic CT revealed numerous nodular densities throughout the bilateral lungs with increasing bibasilar atelectasis and a new left posterior lower lobe consolidation with air bronchograms suspicious for pneumonia. Extensive osteoblastic
metastatic disease throughout the visualized axial skeleton and pelvis. Numerous subcentimeter hypodensities throughout the liver, some which are likely cysts, others aren't fully characterized given lack of IV contrast. Metastasis cannot be
excluded in the setting of known metastatic cancer. Small volume ascites with diffuse body wall edema.
Increased crackles in bilateral lower lobes and wheezing.
Patient went from 6L of O2 to 12L. Sating at 96% on 12L.
Blood culture drawn -second set of blood cultures sent, pending
Continue Levophed to maintain systolic BP >90. Midodrine per Nephrology.
Patient iona 9kg over admit. Nephro suspects potential volume overload. IV fluids d/c and started on lasix per nephrology.
Vancomycin and Zosyn switched to vancomycin and meropenem per ID consult. Continue.
Micafungin continued.
Patient will be put on a puree diet and thin liquids per swallowing study. Speech therapy will follow up.
- Pancytopenia: Monitoring -
1 unit of PRBCs given due to severe anemia
Trend H&H, white blood cells, and platelets -hemoglobin and hematocrit stable, white blood cells now within normal limits. Thrombocytopenia ongoing.
oncology conuslted. Noted that anemia and thrombocytopenia are most likely due to bone marrow metastases, indicating bone marrow failure. He has circulating nucleated red blood cells, as well as a left shift in his white cell line. Even
without his worsening renal failure, this portends a very poor prognosis.
ICU doctor gave 1 platelet single donor leuko.
Repeat peripheral blood smear, LDH and LFTs to rule out potential TTP.
-Non anion gap acidosis: Monitoring
May be secondary to sepsis
Patient was taken off of alkaline fluid per nephrology. Ongoing Monitoring.
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
CT of the head ordered.
Patient is requesting for his adenocarcinoma management to be switched from [place] to [place]. Will reach out to Oncology.
-Acute kidney injury: Monitoring
Upon admission the patient has an elevated BUN of 72 and creatinine of 1.8. No acidosis and no significant fluid overload clinically. Patient's renal function baseline is not known.
Follow creatinine
Give hemodynamic support with fluids and vasopressors
Bladder scan protocol
Kidney and bladder ultrasound: Findings suggesting chronic outlet obstruction changes.
No indication for SAP BI DEVELOPER at this point per nephrology.
Cr steady increase. Now 12/21 is 3.5. Oliguric with urine output noted at 350cc. Maintain folly cath.
Plan to check urine eosinophils to monitor reaction to antibiotics.
-Essential hypertension: Monitoring
Patient has a history of hypertension on oral medication which we will hold. EKG shows nonspecific ST changes.
-Hypoxic respiratory failure: Monitoring
Suspected secondary to underlying lung disease. Support with oxygen for now and treat possible pneumonia.
High flow oxygen if needed. Note above^
BiPAP if necessary
Aspiration precautions
Nebulizers as needed
CT of chest consistent with widely metastatic pulmonary parenchymal disease versus diffuse infection
Severe emphysematous changes noted on CT lung
Ultrasound of the legs ruled out DVT.
Upper extremity US was ordered due to new onset upper extremity edema which came back unremarkable. Pick line in right arm.
-Severe protein caloric malnutrition: Monitoring
Unintentional weight loss >7.5% in the last 3 months
Poor nutrition intake <75% of estimated meds for > 1 month per nutrition.
Patient now on mince and moist solids.
DVT prophylaxis: Sequential compression devices
Full code
Data:
Chest x-ray on 12/17/2023: Moderately extensive diffuse coarsening of the interstitial markings throughout both lungs, new when compared with the prior study suggesting diffuse interstitial pneumonia.
Chest CT on 12/17/2023: Numerous nodular opacities throughout both lungs considered most suspicious for pulmonary metastatic disease in the setting of known metastatic parotid adenocarcinoma. Progression of osteoblastic metastatic disease in the
chest. Severe chronic obstructive pulmonary disease.
Chest CT on 12/17/[address] on 12/17/2023: No acute intracranial abnormality. Left mastoid effusion.
Renal ultrasound on 12/20/23: Findings suggesting of chronic outlet obstruction changes
Echocardiogram on 12/20/2023: Hyperdynamic left ventricular systolic function. Estimated ejection fraction 70 to 75%. Dilated hypokinetic right ventricle. Mild tricuspid regurgitation.
Adbomen/Pelvis CT on 12/21/2023: Numerous nodular densities throughout the bilateral lungs with increasing bibasilar atelectasis and a new left posterior lower lobe consolidation with air bronchograms suspicious for pneumonia. Extensive osteoblastic
metastatic disease throughout the visualized axial skeleton and pelvis. Numerous subcentimeter hypodensities throughout the liver, some which are likely cysts, others aren't fully characterized given lack of IV contrast. Metastasis cannot be
excluded in the setting of known metastatic cancer. Small volume ascites with diffuse body wall edema.
Anticipated Discharge: > 48 hours
Subjective/Interval History
-
Date of Service: December 22, 2023
Patient is in good spirits. Has been sleeping a bit more. Having a harder time breathing.
Objective Data
-
Labs:
Laboratory Results
12/22/23 12/22/23
03:13 16:00
WBC 4.4 L Pending
Hgb 8.3 L Pending
Hct 23.3 L Pending
Plt Count 18 L* Pending
Sodium 129 L
Potassium 4.6
Chloride 100
Carbon Dioxide 20 L
BUN 88 H
Creatinine 3.5 H
Glucose 106 H
Calcium 7.1 L
Vital Signs:
Vital Signs
Temp Pulse Resp BP Pulse Ox
98.0 F 105 11 118/69 88
12/22/23 08:18 12/22/23 09:15 12/22/23 09:15 12/22/23 09:00 12/22/23 09:15
I&O
12/21/23 12/22/23 12/23/23
06:59 06:59 06:59
Intake Total 2075.0 / 2165.0 3695.7 / 3767.0 273.9 / 273.9
Output Total 350 / 350 457 / 472 65 / 65
Balance 1725.0 / 1815.0 3238.7 / 3295.0 208.9 / 208.9
Review of Systems
-
History Source: Patient
Constitutional: Reports Fatigue; Denies Fever
EENT: Reports No Symptoms Reported
Respiratory: Reports Trouble Breathing
Cardiac: Reports No Symptoms
Abdomen/GI: Reports Nausea, Vomiting and Diarrhea
Genitourinary: Reports No Symptoms
Skin: Reports No Symptoms
Neuro: Reports No Symptoms
Physical Exam
-
General: Comfortable
Respiratory: Wheezes and Crackles
Cardiac: Regular Rhythm and S1/S2
GI: Tender
Musculoskeletal: No Cyanosis; Negative Edema, Right Lower Extrem or Edema, Left Lower Extrem
Neuro: AO x 3
Psych: Calm
[2023-12-22] MEDS: MERREM 500 MG IV ×2 (09:56→21:06)
[2023-12-22] MEDS: STERILE WATER FOR INJECTION 10 ML IV ×2 (09:57→21:06)
--- NOTE | 2023-12-22 10:02 | PHA.VAN.FU ---
Vancomycin Assessment / Plan
- Assessment
Renal Function: SCR Increasing
In the past 24 hrs, patient has been: Afebrile
Concomitant Antimicrobials: meropenem, micafungin
- Assessment - Therapeutic Drug Monitoring
Random Level: 22.9 - drawn ~18H after previous dose of 1250mg
- Dosing Plan
Dosing by Level: Hold off on dosing today
- Monitoring Plan
Random Level: 12/22 599
- Follow Up
Pharmacy will continue to follow.
Vancomycin Follow UP
- -
Patient Age: 68
Patient Sex: Male
Vancomycin Day #: 2
Indication: Other
Requesting Provider: Dr. Rangel
Pertinent Antimicrobial Allergies:
mupirocin - vomiting
Height / Weight:
Height 5 ft 11 in
Actual Weight 79.8 kg
IBW in k.3
Pertinent Past Medical History: L. parotid adenocarcinoma
- Vital Signs / Lab Results
Temp Pulse Resp BP Pulse Ox
98.0 F 105 11 118/69 88
12/22/23 08:18 12/22/23 09:15 12/22/23 09:15 12/22/23 09:00 12/22/23 09:15
Lab Results - Hematology
12/20/23 12/21/23 12/21/23
03:56 04:07 17:47
WBC 4.1 L 5.1 5.6
Band Neutrophils 13 H
12/22/23
03:13
WBC 4.4 L
Band Neutrophils 18 H D
Lab Results - Chemistry
12/20/23 12/20/23 12/21/23
03:56 15:31 04:07
BUN 64 H 70 H 79 H
Creatinine 2.5 H 2.8 H 3.2 H
Estimated Creat Clear
Albumin 2.1 L
12/21/23 12/22/23
08:41 03:13
BUN 88 H
Creatinine 3.5 H
Estimated Creat Clear 21
Albumin Cancelled
Microbiology Results
12/17/23 15:16 Blood Culture - Preliminary
Blood/Venous No Growth in 4 days- Final report to follow
12/18/23 12:57 Blood Culture - Preliminary
Blood/Venous No Growth in 72 hours- Final report to follow
Therapeutic Drug Monitoring
Random Vancomycin 22.9 ug/ml 12/22/23 03:13
[2023-12-22] MEDS: LEVOPHED 250 IV (11:17)
--- NOTE | 2023-12-22 12:30 | PTCARENOTE ---
Assessment unchanged. Pt continues to be lethargic and occasionally forgetful. Levo continues. 1 unit platlets infused as ordered.
[2023-12-22] MEDS: MYCAMINE 105 MG IV (12:38)
[2023-12-22] MEDS: PROTONIX 40 MG PO (12:39)
--- NOTE | 2023-12-22 13:06 | PTOTSP ---
ST Follow-Up
Pt continues to present with mild to moderate oral dysphagia. No clinical signs of pharyngeal or esophageal dysphagia noted at bedside.
Recommendations:
- UPGRADE diet to MINCED AND MOIST SOLIDS; continue with thin liquids and meds as tolerated.
- Aspiration precautions: Pt must be fully awake, alert, and upright for all PO intake; small bites/sips; alternate bites/sips; eat/drink slowly - take breaks to breathe.
- UNDERWRITING SALES REPRESENTATIVE to f/u to ensure pt is safely consuming recommended diet consistencies and to determine whether pt would benefit from a repeat instrumental swallow study.
--- NOTE | 2023-12-22 13:25 | W.PN.CD ---
Addendum entered and electronically signed by Joseph Lacey MD 12/23/23 08:08:
Note Correction: The patient has Acute Non-Ischemic Myocardial Injury in the setting of sepsis.
Original Note:
Today's Communication / Plan
-
-On multiple antibiotics and an antifungal.
-Continue supportive care; on midodrine.
-Resume home dose of metoprolol tartrate 25 mg BID when blood pressure improves/stabilizes for management of sinus tachycardia.
-Cardiology will remain available on an as-needed basis.
Impression / Plan
-
Elevated troponin.
-0.4 this was the peak troponin on presentation.
-LV function normal.
-Suspect non-VA troponin in setting of sepsis.
Sepsis/pneumonia:
-Patient with metastatic disease along with infiltrates.
-Treatment as directed by pulmonary, ID, and primary team.
-On multiple antibiotics and an antifungal.
-Continue supportive care; on midodrine.
Sinus tachycardia:
-Most likely exacerbated by holding of beta-heladio in the setting of sepsis.
-Resume home dose of metoprolol tartrate 25 mg BID when blood pressure improves/stabilizes for management of sinus tachycardia.
-Ultrasound negative for DVT 12/20/2023.
.
LOGAN - worsening. 3.5 today. Optimize hemodynamics. Nephrology following.
.
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
.
Anemia/thrombocytopenia. Continue to monitor. No evidence of acute bleeding.
Physical Exam
Vital Signs/Labs
Vital Signs
Temp Pulse Resp BP Pulse Ox
98.8 F 115 32 114/80 83
12/22/23 12:37 12/22/23 12:30 12/22/23 12:30 12/22/23 12:30 12/22/23 12:30
12/21/23 12/22/23 12/23/23
06:59 06:59 06:59
Actual Weight 77.7 kg 79.8 kg
12/22/23 03:13
PT 19.6 Sec (11.4-14.6) H 12/21/23 17:47
INR 1.68 12/21/23 17:47
APTT 46.6 Sec (23.4-35.0) H 12/21/23 17:47
Magnesium 1.8 mg/dl (1.6-2.3) 12/22/23 03:13
Physical Exam
Constitutional: No acute distress
EENT: Anicteric
Cardiovascular: Rhythm & rate is regular (Mildly tachycardic), Pedal edema is absent, Systolic murmur present (05/30) and S1S2 is normal
Respiratory: Respiratory effort normal and Wheeze Present (Mild expiratory)
GI: Soft
Neuro/Psych: AO x 3
Other: Skin (Warm, dry)
Data Reviewed
-
Date of Service: December 22, 2023
EKG: Tracing Personally Visualized and interpreted (Telemetry: Sinus tachycardia)
Labs: Labs Reviewed by me
Critical Care Time (in minutes): 38
[2023-12-22] MEDS: DUONEB 3 ML INH ×2 (13:31→20:03)
--- NOTE | 2023-12-22 14:31 | W.PN.ONC ---
Today's Communication / Plan
-
See updated plan.
Impression
Impression
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
Pneumonia
Hypertension
Evidence of pulmonary nodule suggesting progressive disease
Thrombocytopenia
Plan
Plan
Supportive care
Treatment of pneumonia/sepsis as per primary team with broad-spectrum antibiotics
Our team has reviewed treatment plan with Donny Gonzalez
Hgb stable, platelets in low 20's.
Progressive renal failure noted.
Reviewed peripheral smear, saw a couple bite cells but overall smear is not concerning for microangiopathic process.
DIC panel with AM labs.
Transfuse platelets<10K or with atypical bleeding
The anemia and thrombocytopenia are most likely due to bone marrow metastases, indicating bone marrow failure. He has circulating nucleated red blood cells, as well as a left shift in his white cell line. Even without his worsening renal failure,
this portends a very poor prognosis.
Subjective/Objective
Subjective/Objective
He is very lethargic, minimally responsive. Examination is unchanged.
Vital Signs:
Vital Signs
Temp Pulse Resp BP Pulse Ox
98.8 F 111 14 104/67 97
12/22/23 12:37 12/22/23 14:15 12/22/23 14:15 12/22/23 14:00 12/22/23 14:00
Lab Results:
Laboratory Data
WBC 4.4 10^3/uL (4.8-10.8) L 12/22/23 03:13
Hgb 8.3 g/dL (13.0-18.0) L 12/22/23 03:13
Plt Count 18 10^3/uL (130-400) L* 12/22/23 03:13
PT 19.6 Sec (11.4-14.6) H 12/21/23 17:47
INR 1.68 12/21/23 17:47
APTT 46.6 Sec (23.4-35.0) H 12/21/23 17:47
eGFR 18.01 12/22/23 03:13
[2023-12-22] MEDS: SOLU-MEDROL PF 40 MG IV ×2 (16:08→23:00)
[2023-12-22 16:24] LABS: Hematocrit 24.2 % (39.0-52.0); Hemoglobin 8.6 g/dL (13.0-18.0); Mean Corp Hgb Conc. 35.5 g/dL (33.0-37.0); Mean Corpuscular Hgb 31.5 pg (27.0-31.0); Mean Corpuscular Volume 88.6 fL (80.0-94.0); Mean Platelet Volume 11.1 fL (7.4-10.4); Red Blood Cell Count 2.73 10^6/uL (4.70-6.10); Red Cell Dist. Width 20.8 % (11.5-14.5); White Blood Cell Count 5.2 10^3/uL (4.8-10.8)
[2023-12-22 16:30] LABS: Platelet Count 29 10^3/uL (130-400)
--- NOTE | 2023-12-22 17:32 | PTCARENOTE ---
Assessment unchanged. Pt continues to be lethargic and occasionally forgetful. Levo continues. 1 unit platlets infused as ordered.
--- NOTE | 2023-12-22 17:35 | PTCARENOTE ---
MRI head complete without issue. Orthopnea noted with procedure.
--- NOTE | 2023-12-22 17:55 | W.PN.UPDATE ---
Update Note
Progress Note Update
Brain MRI performed today given waxing and waning mental status/confusion. Brain MRI shows small number of tiny acute ischemic infarcts in the white matter involving the right frontal/parietal lobes. Also a small 4 mm subacute infarct in the
posterior periventricular left frontal lobe. I reached out personally to neurology, Dr. Cartagena, and recommendations are pending. Patient is already being seen by [facility] and I defer patient's diet to them. Additional recommendations by neurology will
be followed closely. Patient updated and so was bedside RN and primary hospitalist.
--- NOTE | 2023-12-22 20:00 | PTCARENOTE ---
Rec'd pt resting in bed, more forgetful than last night, oriented, cooperative, R leg weaker than L, denies pain, ST, to keep sbp > 90, levophed gtt at 2 arnel, distal pulses via doppler, + anasarca, O2 12 liters mid flow, sat 96, lungs w/ scat exp
wheezes, decr in bases, R base crackles, enc to use IS- reaches 1750, + bowel sounds, Rectal trumpet to str drainage bag draining brown liquid stool, poor appetite,abd soft, nontender, no n/v, park w/ scant cloudy yellow urine
[2023-12-22] MEDS: DESYREL 50 MG PO (21:06)
--- NOTE | 2023-12-22 22:00 | PTCARENOTE ---
sat 89, midflow incr to 15 liters, sat 90%, and son updated on pt status, pt states he wants to go home, enc family to discuss goals
--- NOTE | 2023-12-22 23:50 | PTCARENOTE ---
Sys reviewed, changed to Hi flow 55 liters/ 100%, repos on R side, sat 92, CHG bath done, linens changed
[2023-12-23] VITALS (38 sets, daily range): BP systolic 87–139; BP diastolic 55–85; BMI 25.0
[2023-12-23 03:35] LABS: Hematocrit 25.7 % (39.0-52.0); Hemoglobin 9.1 g/dL (13.0-18.0); Mean Corp Hgb Conc. 35.4 g/dL (33.0-37.0); Mean Corpuscular Hgb 31.1 pg (27.0-31.0); Mean Corpuscular Volume 87.7 fL (80.0-94.0); Platelet Count 34 10^3/uL (130-400); Red Blood Cell Count 2.93 10^6/uL (4.70-6.10); Red Cell Dist. Width 20.9 % (11.5-14.5); White Blood Cell Count 5.9 10^3/uL (4.8-10.8)
[2023-12-23 03:58] LABS: Vancomycin Random 19.3 ug/ml
[2023-12-23 04:05] LABS: Blood Urea Nitrogen 99 mg/dl (9-20); Carbon Dioxide 18 mmol/L (22-30); Chloride 99 mmol/L (98-107); Estimated Creatinine Clearance 17 ml/min; Glucose 130 mg/dl (70-99); LDH 820 U/L (120-246); Magnesium 1.8 mg/dl (1.6-2.3); Potassium 5.1 mmol/L (3.5-5.1); Sodium 129 mmol/L (135-145); eGFR 14.47
--- NOTE | 2023-12-23 04:13 | PTCARENOTE ---
sys reviewed, lungs dec in bases, crackles R base, no wheezes, sat 99% , when pt took hi flow off sat dropped to78
[2023-12-23 04:20] LABS: % Basophils 0.5 % (0-2); % Eosinophils 0.2 % (0-6); % Immature Granulocytes 5.7 % (0-0.5); % Lymphocytes 2.9 % (20.5-51.1); % Monocytes 4.9 % (1.7-9.3); % Neutrophils 85.8 % (42.2-75.2); Absolute Immature Granulocytes 0.3 10^3/uL (0-0.05); Absolute Lymphocytes 0.2 10^3/uL (1.2-3.4); Absolute Monocytes 0.3 10^3/uL (0.1-0.6); Absolute Neutrophils 5.1 10^3/uL (1.4-6.5); Nucleated Red Blood Cells % 1.4 % (-)
[2023-12-23] MEDS: CALCIUM GLUCONATE 130 MG IV (04:41)
--- NOTE | 2023-12-23 04:47 | PTCARENOTE ---
3 gm calcium gluconate hung over 1 hr per order
[2023-12-23 05:07] LABS: Body Fluid for Eosinophils No Eosinophils seen
--- NOTE | 2023-12-23 06:00 | CON.NEURO4 ---
Consultation - Neurology 4
-
CONSULTING PHYSICIAN: Sharon Cartaegna
REFERRING PHYSICIAN: ICU
DICTATED BY: Sharon Cartagena
DATE/TIME OF REQUEST: 12/23/23
DATE/TIME OF CONSULTATION: 12/23/23
Reason for Consultation: Stroke seen on MRI brain
History of Present Illness:
Patient is a 68-year-old man with a past medical history of metastatic parotid gland adenocarcinoma, COPD, hypertension, hyperlipidemia, left-sided facial palsy who presented to hospital and was admitted on 12/16 due to generalized weakness and was
found to be in shock suspected septic shock and was in the ICU on pressors for couple of days, source found to be most likely pneumonia and also complicated by LOGAN and noted to have pancytopenia did receive 1 unit packed red blood cells for this.
Due to speech abnormalities and confusion MRI was obtained which showed both acute and subacute ischemic strokes bilaterally in the brain.
Patient awakens easily and is able to have conversation he does report garbled speech but no unilateral weakness or paresthesia or vision changes does have a bit of a headache currently. Denies previous history of stroke or TIA. Reports some
dyspnea.
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
Family History: Non-contributory
Social History: and lives with his , retired, former tobacco use smoking, no significant alcohol
Review of Symptoms:
Patient denies any fever, headache, chest pain, shortness of breath, GI or symptoms.
Physical Exam:
elderly age man appears chronically ill no acute distress no signs of head or neck trauma eyes are clear oropharynx is clear without tongue laceration heart rate regular breathing unlabored with wheezes noted and mild crackles in the bases
bilaterally, abdomen soft nontender no lower extremity edema seen
Neurologic Examination:
The patient is awake, alert and oriented x 3. (He/She) is able to follow commands and answer questions appropriately. There is no aphasia or dysarthria. On cranial nerve assessment, pupils are 3 mm bilateral, round and reactive to light and
accommodation. Visual edward are full. Extraocular movements are intact. Facial sensations are intact and bilaterally symmetrical, there is no facial asymmetry. Hearing is intact bilaterally to normal conversation volume. Tongue palate and uvula
are midline. Sternocleidomastoid strengths are full bilaterally. Motor strengths are 5/5 bilateral upper and lower extremities on medical research Rosebud scale. There is no drift or involuntary movement noted. Deep tendon reflexes are 2+ bilateral
upper and lower extremities and Babinski is absent bilaterally. Sensations of pain, touch, temperature and vibration are intact and bilaterally symmetrical. There was no extinction noted on double simultaneous stimulation. Coordination is intact by
finger to nose bilaterally.
Neuro Imaging: MRI brain results noted noting bilateral ischemic strokes and also subacute ischemic stroke in both left and right hemispheres and subcortical regions, no hemorrhage or metastases or edema seen
Impressions
1. Bilateral ischemic strokes both acute and subacute. Clinical context of metastatic cancer suggest that hypercoagulable state due to cancer I believe would be the leading cause for the ischemic stroke, other possibilities would be aortic
atheroembolism or cardiac embolus. Blood cultures have been negative to date and transthoracic echocardiogram not supportive of endocarditis. Significant thrombocytopenia prohibits antithrombotics at this time. Stroke size is small/medium and
mainly affecting speech/swallowing function , and contributing to confusion.
2. Toxic metabolic encephalopathy multifactorial from stroke, infection, LOGAN
2. Admitted with septic shock suspect most likely pneumonia as source
3. LOGAN
4. Pancytopenia
5. Metastatic adenocarcinoma with metastases to bone marrow most likely resulting in pancytopenia
6. COPD former smoking history
Recommendations:
1. Goal normotension
2. Neurologic checks and NIH stroke scale
3. Monitor on cardiac telemetry
4. Would not be able to give aspirin until platelets are above 40-50,000 range, no indication for platelet transfusion from a neurologic point of view
5. Check carotid ultrasound although strokes are bilateral in nature not likely to be from carotid stenosis
6. I do not feel strongly that a JUAN would be essential as very unlikely to change her management here
7. Aspiration precautions, speech therapy
8. Minimize sedating medications
Will follow
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
--- NOTE | 2023-12-23 06:29 | W.PN.ONC2 ---
Addendum entered and electronically signed by Paolo Lyon MD 12/23/23 07:47:
Peripheral smear reviewed again:
< 1 schistocyte/HPF. No evidence for primary microangiopathic process such as TTP
RBC morphology basically normal.
Decreased PLT.
Original Note:
Today's Communication / Plan
-
Clinical picture c/w worsening MSOF in context of progressive widespread malignancy.
Not candidate for anti-neoplastic therapy in light of poor PS, MSOF, and cytopenias.
Seems to be approaching need for intubation with mechanical respiratory support if code status not changed which would be very morbid.
Prognosis is dismal. >95% inpatient mortality within next 1-2 weeks or less. Suggest transitioning him to comfort care as the most humane option if family and patient agrees.
Spoke with Michael by phone. Discussed at length with her. Change code status to DNR. [place] comfort measures (wait until after sisters arrive to deescalate - - but do not elevate/intubate).
DNR ordered.
40 minute coordination end of life care.
Impression
Impression
Metastatic adenocarcinoma of the parotid known bone marrow and bony metastases, suspected lung, brain , and possible liver mets
Pneumonia
Hypertension
Evidence of pulmonary nodule suggesting progressive disease
Thrombocytopenia
PS 4
Multiple ischemic brain infarcts
Plan
Plan
Patient has MSOF (Resp/renal/bone marrow/neuro) in context of what appears to be progressive widespread metastatic disease.
MRI brain shows multiple ischemic infarcts, possibly neoplastic related (either directly from mets or hypercoagulability from malignancy)
Remains full code. Despite aggressive supportive care, condition is not improving.
Treatment of pneumonia/sepsis as per primary team with broad-spectrum antibiotics
Our team has reviewed treatment plan with Donny Gonzalez earlier this admission.
Reviewed peripheral smear, saw a couple bite cells but overall smear is not concerning for microangiopathic process.
Transfuse platelets<10K or with atypical bleeding
The anemia and thrombocytopenia are most likely due to bone marrow metastases, indicating bone marrow failure. He has circulating nucleated red blood cells, as well as a left shift in his white cell line. Even without his worsening renal failure,
this portends a very poor prognosis.
Subjective/Objective
Chief Complaint
ACS Oncology
Subjective
Seen in ICU. Lethargic, forgetful. Maxed out on high flow O2. Remains critically ill on pressors. S/P PLT x 1 yesterday for PLT 18 > 34 post transfusion
Vital Signs:
Vital Signs
Temp Pulse Resp BP Pulse Ox
98.8 F 99 12 132/84 94
12/23/23 03:18 12/23/23 06:00 12/23/23 06:00 12/23/23 06:00 12/23/23 06:00
Lab Results:
Laboratory Data
WBC 5.9 10^3/uL (4.8-10.8) 12/23/23 03:13
Hgb 9.1 g/dL (13.0-18.0) L 12/23/23 03:13
Plt Count 34 10^3/uL (130-400) L 12/23/23 03:13
PT 19.6 Sec (11.4-14.6) H 12/21/23 17:47
INR 1.68 12/21/23 17:47
APTT 46.6 Sec (23.4-35.0) H 12/21/23 17:47
eGFR 14.47 12/23/23 03:13
BRAIN MRI
IMPRESSION:
1. Small number of TINY ACUTE ISCHEMIC INFARCTS in the white matter of the right frontal and parietal lobes.
2. 4 mm subacute ischemic infarct in the posterior periventricular left frontal lobe.
3. Mild white matter leukoaraiosis in the frontal and parietal lobes.
4. Moderate diffuse cerebral and cerebellar volume loss.
5. LARGE MALIGNANT ADENOCARCINOMA in the LEFT PAROTID GLAND.
6. Large amount of fluid in the left mastoid air cells consistent with previous left neck radiation therapy.
7. Mild paranasal sinus mucosal disease.
Physical Exam
Lethargic on high flow O2. Minimally responsive.
[2023-12-23] MEDS: ADVAIR HFA 115/21 MCG INHALER 2 PUFF INH ×2 (07:29→20:47)
[2023-12-23] MEDS: DUONEB 3 ML INH ×3 (07:29→20:47)
[2023-12-23] MEDS: NON-FORMULARY ITEM 1 APPLIC TOPICAL ×2 (08:10→20:14)
[2023-12-23] MEDS: SOLU-MEDROL PF 40 MG IV ×3 (08:22→23:10)
[2023-12-23] MEDS: FLUSH (NSS) 1 FLUSH IV ×3 (08:22→17:29)
[2023-12-23] MEDS: PROTONIX 40 MG PO (08:23)
[2023-12-23] MEDS: FLOMAX 0.4 MG PO ×2 (08:23→20:14)
--- NOTE | 2023-12-23 08:23 | PHA.VAN.FU ---
Vancomycin Assessment / Plan
- Assessment
Renal Function: SCR Increasing
WBC's are: WNL
In the past 24 hrs, patient has been: Afebrile
Concomitant Antimicrobials: meropenem, micafungin
- Assessment - Therapeutic Drug Monitoring
Random Level: 19.3 - drawn ~24H after previous level of 22.9
Calculated ke: 0.0071
Calculated half life (H): 97.2
- Dosing Plan
Dosing by Level: Hold off on dosing today (based on current half-life, anticipated to remain above a level of 12 for > 60H - may maintain level longer if SCR continues to increase)
- Monitoring Plan
No level(s) ordered at this time: consider random for Thursday based on current half-life
- Follow Up
Pharmacy will continue to follow.
Vancomycin Follow UP
- -
Patient Age: 68
Patient Sex: Male
Vancomycin Day #: 3
Indication: Other
Requesting Provider: Dr. Rangel
Pertinent Antimicrobial Allergies:
mupirocin - vomiting
Height / Weight:
Height 5 ft 11 in
Actual Weight 81.4 kg
IBW in k.3
Pertinent Past Medical History: L. parotid adenocarcinoma
- Vital Signs / Lab Results
Temp Pulse Resp BP Pulse Ox
98.6 F 100 14 132/84 93
12/23/23 07:54 12/23/23 07:32 12/23/23 07:32 12/23/23 06:00 12/23/23 07:34
Lab Results - Hematology
12/21/23 12/21/23 12/22/23
04:07 17:47 03:13
WBC 5.1 5.6 4.4 L
Band Neutrophils 13 H 18 H D
12/22/23 12/23/23
15:58 03:13
WBC 5.2 5.9
Band Neutrophils
Lab Results - Chemistry
12/20/23 12/21/23 12/21/23
15:31 04:07 08:41
BUN 70 H 79 H
Creatinine 2.8 H 3.2 H
Estimated Creat Clear 26 23
Albumin 2.1 L Cancelled
12/22/23 12/23/23
03:13 03:13
BUN 88 H 99 H
Creatinine 3.5 H 4.2 H*
Estimated Creat Clear 21 17
Albumin
Microbiology Results
12/17/23 15:16 Blood Culture - Final
Blood/Venous No Growth - Final Report
12/18/23 12:57 Blood Culture - Preliminary
Blood/Venous No Growth in 4 days- Final report to follow
Therapeutic Drug Monitoring
Random Vancomycin 19.3 ug/ml 12/23/23 03:13
[2023-12-23] MEDS: SENOKOT PO (08:24)
[2023-12-23] MEDS: POLYSPORIN OINTMENT 1 APPLIC TOPICAL ×2 (08:25→20:15)
[2023-12-23] MEDS: ROXICODONE 5 MG PO ×3 (08:25→23:09)
[2023-12-23] MEDS: CRESTOR 10 MG PO (08:25)
[2023-12-23] MEDS: ProAmatine 10 MG PO ×3 (08:25→17:29)
--- NOTE | 2023-12-23 08:39 | W.PN.ID1 ---
Date of Service
Date of Service: December 23, 2023
Today's Communication
- note plans to transition to hospice
- after family gathers would stop antibiotics/antifungals
ID service will no longer actively follow this patient please recall for further questions
Assessment / Plan
Shock - suspected septic
Suspected Hospital Acquired Pneumonia
Pancytopenia - improved
LOGAN - progressive
left parotid gland adenocarcinoma - not on immunosuppressive drugs
- note plans to transition to hospice
- after family gathers would stop antibiotics/antifungals
ID service will no longer actively follow this patient please recall for further questions
Chief Complaint
-: Other (shock)
Subjective / Review of Systems
remains afebrile
norepi down to 2 mcg/min
on high flow and NRB
note oncology input that prognosis is dismal with >95% mortality in 1-2 weeks
Vital Signs / Physical Exam
Vital Signs
Vital Signs
Temp Pulse Resp BP Pulse Ox
98.6 F 111 14 109/62 93
12/23/23 07:54 12/23/23 08:25 12/23/23 07:32 12/23/23 08:25 12/23/23 07:34
Physical Exam
Constitutional: No Acute Distress
Pulmonary: Symmetric, Non Labored and Other (on high flow and NRB)
Gastrointestinal: Non Distended
Neurological: Awake and Oriented
Psychological: Calm
Objective Data
Lab Data
Lab Results
12/23/23 03:13
12/23/23 03:13
PT 19.6 Sec (11.4-14.6) H 12/21/23 17:47
INR 1.68 12/21/23 17:47
APTT 46.6 Sec (23.4-35.0) H 12/21/23 17:47
Estimated Creat Clear 17 ml/min 12/23/23 03:13
Lactic Acid Cancelled 12/18/23 01:58
Total Bilirubin Cancelled 12/21/23 08:41
AST Cancelled 12/21/23 08:41
ALT Cancelled 12/21/23 08:41
Alkaline Phosphatase Cancelled 12/21/23 08:41
Most recent labs reviewed
note improved plt
L shift (on steroids)
LDH 820
12/22 urine no eos
MRI brain without contrast: tiny acute ischemic infarcts fontal and parietal, subacute ishcemic infarct L frontal
blood cultures remain no growth
hasnt produced a sputum
Micro Results:
12/17/23 15:16 Blood Culture - Final
Blood/Venous No Growth - Final Report
12/18/23 12:57 Blood Culture - Preliminary
Blood/Venous No Growth in 4 days- Final report to follow
12/17/23 23:15 Urine Culture - Final
Urine NO GROWTH
12/17/23 22:21 Nasal Screen MRSA (PCR) - Final
Nose MRSA not detected - performed by PCR methodology.
[2023-12-23 08:54] LABS: Albumin 2.5 g/dl (3.5-5.0)
--- NOTE | 2023-12-23 08:54 | W.PN.INTV ---
Today's Communication / Plan
Recommendations
Awaiting transition to comfort care once additional family members arrive from out of town
Continue medical care with high flow nasal cannula and other medications until all family members are present
Continue DuoNebs + solumedrol given worsening SOB in setting of advanced COPD/emphysema although seems he is having worsening pulmonary mets as primary cause of his SOB
He has been weaned off vasopressors
Midodrine
Wean oxygen as tolerated
Once patient transitions to comfort care/hospice then we will sign off. Thank you for allowing us to be involved in the care of this patient.
Assessment
-
68-year-old male with underlying hypertension, hyperlipidemia, COPD, former [id number] smoker who has a left parotid gland adenocarcinoma status post radiation-20 cycles at [facility] within the last couple weeks with known C2 vertebral body metastatic
disease and rib mets admitted with sepsis-service center manager consulted for sepsis/shock/critical care management 12/18/2023.
Impression:
Sepsis with shock unresponsive to fluids requiring pressors - shock state now resolved
Multiple tiny acute ischemic infarcts in the right frontal/parietal lobes +4 mm subacute ischemic infarct in the posterior left frontal lobe, likely due to metastatic SPRAGGER disease
Pneumonia-aspiration versus widely metastatic disease to the lung parenchyma
Pancytopenia with worsening thrombocytopenia likely due to bone marrow infiltration of parotid adenocarcinoma
Altered mental status/confusion likely due to SPRAGGER mets
Anemia s/p transfusion with 1 unit PRBC on 12/17/2023
Lactic acidosis � resolved as of evening on 12/17/2023
LOGAN � worsening
Hypoalbuminemia
Elevated troponin likely due to demand ischemia with type II CT � peaked at 0.409 on 12/18/2023
Conditions present prior to admission:
Hypertension.
Hyperlipidemia.
COPD with severe centrilobular emphysema-followed by primary-on Advair and albuterol as needed
Former smoker ([id number] history, quit 2021)
Left sided parotid adenocarcinoma - stage IV metastatic disease s/p 20 cycles XRT (last given 1-2 weeks ago) given at [facility] with known rib and vertebral mets and c/b left facial nerve palsy
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
BPH
Plan:
Continues to be critically ill requiring increasing amounts of oxygen now on high-flow nasal cannula with worsening sCr and poor UOP with evidence of widespread metastatic disease on imaging
Oncology saw the patient today and unfortunately patient is not a candidate for anti-neoplastic therapy due to poor functional status and cytopenias --> discussion held with the , Michael, by phone with oncologist, Dr. Lyon, and patient wants to
pursue comfort care measures after sisters arrive from out of town.
Continue her usual care as summarized below, and once all family members are present then we will stop all medications/treatments and transition to comfort care measures.
Pt is now DNR/DNI
DC any additional labs, POCT glucose
Aspiration precautions per protocol
Nebulizers if needed-currently not bronchospastic
CT chest consistent with extensive bilateral pulmonary parenchymal disease-diffuse infection versus metastatic/lymphangitic
Note: Severe emphysematous changes noted on CT lungs-suspect he has significant underlying COPD to start with
On 12/21 I started duonebs TID + solumedrol given he has COPD and is more SOB, although likely due to worsening pulmonary mets
Cultures reviewed
Blood ivlhxdtm-wmtzwsy-ruqsidyb thus far
Urine cultures no growth
MRSA screen negative
Until patient is transition to comfort care, continue empiric antibiotics-vancomycin and Zosyn initiated-now on meropenem, IV vanco and micafungin
Infectious disease following-correspondence reviewed
Trend leukocytosis & fever curve
Maintain MAP>65
Continue midodrine at 10mg TID
On 12/20 I started albumin and given 25g 25% x 3 doses given low serum albumin
Cardiology following-correspondence reviewed-reviewed personally with Dr. Marquez
No longer need to trend troponin given it peaked at 0.49 on 12/18/2023
Monitor renal function, and renally dose all meds + Abx
Nephrology consulted with recs appreciated
Given confusion and worsening LOGAN, stopped gabapentin on 12/20--> plan was to resume once Cr + AMS improves; now that he is pursuing comfort care measures, we can resume if he wishes to continue this
Given multiple tiny acute ischemic infarcts seen on brain MRI, neurology consulted. Neurochecks + NIHSS in addition to carotid ultrasound ordered. Carotid ultrasound canceled as patient is pursuing comfort care measures after all family members
have arrived.
TTE performed on 12/12/2023 shows hyperdynamic systolic function with LVEF 70-75% with dilated, hypokinetic RV, which is new compared to prior TTE from 05/2022
Lower extremity ultrasound negative for DVT
Not a candidate for CT/PE protocol and VQ scan would unlikely be productive in this patient with significant COPD and diffuse parenchymal abnormalities- Dr. Silva previously reviewed with Dr. Madrid
No longer need to trend labs as pt going to [facility] to comfort care tonight after all family members have arrived from out of town
Gave 1 unit platelets on 12/21 with platelets rising from to
DVT prophylaxis-mechanical with severe thrombocytopenia
Nutrition
On 12/21 I started stress ulcer ppx with PPI given thrombocytopenia
Early mobilization/bedside range of motion
GOC: On 12/21 I consulted palliative care as pt has guarded prognosis with metastatic disease with suspected pulmonary and liver mets, now with worsening hypoxia., I also discussed goals of care with CODE STATUS and asked how aggressive they would
like to be with medical management given and they would like to continue full medical management for now although they are HD today and learning more about hospice and if things continue to deteriorate, I believe that the patient and the family
would transition to comfort care at that time, but as of right now they would like to continue full medical management and full code
As stated above, given worsening hypoxia with evidence of metastatic spread into brain, pulmonary and liver, patient and family have decided to pursue comfort care measures. Awaiting additional for members to arrive from out of town (sisters coming
from [place]). Will transition to comfort care at that time. Emotional support was provided to the family. All questions were answered. Mattress Spring Encaser already visited. Hospice consulted today. Continue full medical care until then. Once patient
transitions to comfort care/hospice then we will sign off.
Total time spent today was 55 minutes for this encounter. Time includes reviewing laboratory test/imaging results, reviewing pertinent medical records, obtaining and reviewing medical history, performing an appropriate exam, ordering medications,
tests and procedures. Time also includes documentation of this encounter, coordinating patient care and communicating with other healthcare professionals. Total time does not include separately billed tests performed on this date of service.
Diagnostic data:
Brain MRI 12/22/2023:
1. Small number of TINY ACUTE ISCHEMIC INFARCTS in the white matter of the right frontal and parietal lobes.
2. 4 mm subacute ischemic infarct in the posterior periventricular left frontal lobe.
3. Mild white matter leukoaraiosis in the frontal and parietal lobes.
4. Moderate diffuse cerebral and cerebellar volume loss.
5. LARGE MALIGNANT ADENOCARCINOMA in the LEFT PAROTID GLAND.
6. Large amount of fluid in the left mastoid air cells consistent with previous left neck radiation therapy.
7. Mild paranasal sinus mucosal disease.
Chest x-ray 12/22/2023- Stable diffuse coarsening of the interstitial markings throughout both lungs with bilateral pulmonary nodules better demonstrated on the 12/17/2023 examination suggesting pulmonary metastasis with superimposed interstitial
pneumonia; small new left pleural effusion with associated atelectasis at the retrocardiac left lung base
Chest x-ray 12/17/2023-moderately extensive diffuse coarsening of interstitial markings throughout both lung edward suggesting diffuse interstitial pneumonia
CT ckfbm-gyb-viwq lung cancer screening 04/07/2018-no discrete pulmonary nodules or focal parenchymal consolidation
CT chest 12/17/2023-numerous nodular opacifications suspicious for pulmonary metastatic disease, progression of osteoblastic metastatic disease in the chest, severe COPD
CT head 12/17/2023-no acute intracranial abnormalities, left mastoid effusion,
PET scan 08/19/2023-FDG avid left parotid gland mass with SUV max of 11.2 with adjacent FDG avid lymph nodes as well as posterior and anterior cervical chain in the left supraclavicular area, FDG avidity in the C2 vertebral process, few scattered
small foci of FDG avid B in ribs bilaterally
Subjective Dataa
Subjective Data
Date of Service:
Date of Service: December 23, 2023
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
Subjective:
Patient seen and evaluate this morning. BP 96/67. Hospice consulted this morning given worsening hypoxia, + brain MRI findings and worsening LOGAN. Pt was weaned off vasopressors this AM. Changed to HFNC this AM due to worsening hypoxia, now on
55L/min and 55%. HR 110, SpO2 95%. Cr worsening - 4.2 this AM. He is making urine.
Review of Systems
General: Other (Negative unless mentioned above)
Objective Data
Data Reviewed
Vital Signs / I&O / Oxygen:
Vital Signs
Temp Pulse Resp BP Pulse Ox
98.5 F 115 13 135/67 85
12/23/23 08:00 12/23/23 09:00 12/23/23 09:00 12/23/23 09:00 12/23/23 09:00
Intake and Output
12/22/23 12/23/23 12/24/23
06:59 06:59 06:59
Intake Total 3695.7 / 3767.0 1000.6 / 1008.1 222.6 / 222.6
Output Total 457 / 472 530 / 530 70 / 70
Balance 3238.7 / 3295.0 470.6 / 478.1 152.6 / 152.6
SaO2 85
Nasal Cannula flow liters per 55
minute
Physical Exam
General: Respiratory Distress (mild at rest, worse with activity), Comfortable and Other (Briggs catheter in place)
HEENT: Normocephalic, Anicteric, Moist Mucous Membranes and Other (Left facial droop)
Cardiovascular: S1-S2 and Peripheral Edema (Trace lower extremity pitting edema bilaterally)
Respiratory: Wheeze (n), Rhonchi (n), Accessory Resp Muscle Use (mild at rest, worse with activity), Stridor (Negative) and Other (Coarse BS heard bilaterally)
GI: Soft, Non Distended and Non Tender
Neurology: Awake, Alert, Tremors (Negative) and Other (Confused at times)
Skin: Warm, Dry, Jaundice (n) and Rash (n)
Labs/Micro/Reports
Lab Data
12/23/23 03:13
12/23/23 03:13
Microbiology
12/17/23 15:16 Blood/Venous Blood Culture - Final
No Growth - Final Report
12/18/23 12:57 Blood/Venous Blood Culture - Preliminary
No Growth in 4 days- Final report to follow
--- NOTE | 2023-12-23 09:15 | PTCARENOTE ---
Rec'd pt at 0700 and NIH and neuro check completed with off going RN. NIH is a 7- mostly because pt could not remember his age or what month it was. Was able however to state his birthday. Overall pt is alert and mostly oriented but is forgetful. Pt
with chronic L facial droop and slurred speech. Does drool with swallowing liquids but no coughing noted. PADILLA- does have R leg weakness. Skin is pale wm and dry. Dressing change completed as documented to L neck wound from previous radiation. Scant
amt of old drainage. [place]ome[place] soak then Polysporin. Adaptic placed over as dressings tend to stick to wound. Respirs- Rec'd pt on High Flow 55L/100% with sats mostly in the 95-96% range-however pt intermittently desats to as low as 78%-82% and pt
feels more winded/air hungry. 100% NRB mask added for comfort and sats up to 97%. Pt using mask intermittently. BS are in general decreased throughout with few base crackles. Intermittent exp wheeze. Monitor ST. + pulses. PT and DP pulses with the
doppler. +2 generalized anasarca. Denies chest pain. Rec'd pt on Levophed at 2 mcg- with goal to keep sys BP >90. Decreased at 0845 to 1 mcg. Infusing via R arm DL picc. Site wnl ABd is soft with + hypoactive BS. Pt with overall limited appetite.
Denies nausea. Rectal trumpet in place for loose brown stool. Thermistor park in place for wojciech/yellow urine. Dr. Lyon in at 0700. Spoke with pts about prognosis and pt made a DNR. Awaiting 2 sister who are due to arrive later this
afternoon. DNR bracelet applied. Pts and son in to see pt and updated. Support given and plan of care reviewed with pt and family. Call lyndsey in reach.
--- NOTE | 2023-12-23 09:16 | W.PN.HOSP.TC ---
Addendum entered and electronically signed by Ingrid Redman MD 12/23/23 14:37:
I saw and evaluated the patient independently. I reviewed the resident�s note and agree with findings and plan as documented by Dr. Calixto.
GENERAL: chronically ill appearing male in no apparent distress --falls asleep while talking to us
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
HEART: regular rate and rhythm, +S1, +S2, tachycardic
LUNGS : crackles bilaterally
ABDOM: soft, nontender, nondistended, + bowel sounds
EXT: no cyanosis, clubbing--right upper arm edema--PICC line
NEUROLOGIC: grossly intact except for facial palsy
: park cath
septic shock due to possible pneumonia (pt admitted to aspiration)--significant hypotension requiring vasopressors--apprec jde developer and ID--vanco/meropenem/micafungin--Abdomen/Pelvic CT on 12/20 revealed numerous nodular densities throughout the
bilateral lungs with increasing bibasilar atelectasis and a new left posterior lower lobe consolidation with air bronchograms suspicious for pneumonia--all cultures negative--Continue Levophed and IVF with bicarb --wean Levophed--puree diet and thin
liquids per swallowing study, after speech eval, now on minced/moist-- plans for comfort care--advance to regular diet
Pancytopenia--unclear if bone marrow involved, although likely--1 unit of pRBCs given due to severe anemia, platelets given too--Trend H&H, white blood cells, and platelets
Non anion gap acidosis--May be secondary to sepsis-- IV fluid per nephrology, stopped. lasix given as weight up since admission-- worsening LOGAN--apprec renal
Left parotid adenocarcinoma--�stable--Patient is requesting for his adenocarcinoma management to be switched from [place] to [place].
Acute kidney injury, worsening despite IVF and park cath--Upon admission the patient has an elevated BUN of 72 and creatinine of 1.8, and now up to 4.2 despite, park, IVF, diuretics, etc---Give hemodynamic support with fluids and
vasopressors--Bladder scan protocol, maintain park as Kidney and bladder ultrasound: Findings suggesting chronic outlet obstruction changes-- urine eos negative
Essential hypertension--Patient has a history of hypertension on oral medication which we will hold. EKG shows nonspecific ST changes.
Hypoxic respiratory failure--now on 12 L O2--Suspected secondary to underlying lung disease. Support with oxygen for now and treat possible pneumonia--Aspiration precautions--Nebulizers as needed--CT of chest consistent with widely metastatic
pulmonary parenchymal disease versus diffuse infection--Severe emphysematous changes noted on CT lung--Ultrasound of the legs ruled out DVT--Upper extremity US was ordered due to new onset upper extremity edema which came back unremarkable. Picc
line in right arm.
severe protein calorie malnutrition--apprec dietary input
DVT prophylaxis: Sequential compression devices
Full code
oncology and myself spoke at length with pt and updated situation--explained this is progressive cancer and that prognosis poor, comfort should be priority--consulted hospice--pt waiting for family, at his determination, comfort measures will
be started, including morphine drip and everything else except comfort meds will be stopped--prognosis dismal
Total Critical Care Time 36 minutes. I was immediately available to the patient and staff. I personally examined, reviewed labs, diagnostic images/reports, interpretations, treatment plans, discussed patient care with other providers and family
or caregivers (if patient is unable to make decisions), entered orders as appropriate and documented the medical record.
Original Note:
Today's Communication/Plan
-
Patients oxygen requirements continues to increase and renal function continues to decrease. Oncologist spoke to the family at length and patient moved to DNR. Will likely start comfort measures today.
Assessment / Plan
Assessment / Plan
- Clinical shock due to septic shock or metastatic cancer: Monitoring
significant hypotension requiring vasopressors in the emergency department
Patient admitted to aspiration and chest x-ray shows signs of pneumonia with extensive diffuse coarsening of the interstitial markings throughout both lungs -clinical concern is either aspiration pneumonia/hospital acquired pneumonia versus other
interstitial lung processes.
Abdominal/Pelvic CT revealed numerous nodular densities throughout the bilateral lungs with increasing bibasilar atelectasis and a new left posterior lower lobe consolidation with air bronchograms suspicious for pneumonia. Extensive osteoblastic
metastatic disease throughout the visualized axial skeleton and pelvis. Numerous subcentimeter hypodensities throughout the liver, some which are likely cysts, others aren't fully characterized given lack of IV contrast. Metastasis cannot be
excluded in the setting of known metastatic cancer. Small volume ascites with diffuse body wall edema.
Increased crackles in bilateral lower lobes and wheezing.
Patient went from 12L O2 to 55L on high flow nasal cannula overnight.
Blood culture drawn -second set of blood cultures sent, pending
Continue Levophed to maintain systolic BP >90. Today on 2mcg.
Continue Midodrine per Nephrology and cardio.
If BP improves, can use home dose metoprolol tartrate 25 mg BID to manage sinus tachycardia per cardio.
Patient iona 9kg over admit. Nephro suspects potential volume overload. IV fluids d/c.
Vancomycin and Zosyn switched to vancomycin and meropenem per ID consult. Continue.
Micafungin continued.
Patient will be put on a puree diet and thin liquids per swallowing study.
Head MRI ordered by jde developer due to waxing and waning mental status. Results shows bilateral ischemic strokes both acute and subacute.
Patient not a good candidate for JUAN and unable to start aspirin until plt 40-50,000 per neuro. Regular neuro checks.
Oncology reported patient's worsening condition is likely due to metastatic cancer. Not a candidate for anti-neoplastic therpay. Prognosis is dismal.
After discussion with oncologist patient switched to DNR and will likely start comfort measures today. Awaiting for more family input.
- Pancytopenia: Monitoring -
1 unit of PRBCs given due to severe anemia
Trend H&H, white blood cells, and platelets -hemoglobin and hematocrit stable, white blood cells now within normal limits. Thrombocytopenia ongoing.
oncology conuslted. Noted that anemia and thrombocytopenia are most likely due to bone marrow metastases, indicating bone marrow failure. He has circulating nucleated red blood cells, as well as a left shift in his white cell line. Even
without his worsening renal failure, this portends a very poor prognosis.
ICU doctor gave 1 platelet single donor leuko.
Repeat peripheral blood smear, LDH and LFTs to rule out potential TTP. Oncology re-evaluated patient and believes pancytopenia is due to bone marrow metastasis not TTP. Patient will likely start comfort measures.
-Non anion gap acidosis: Monitoring
May be secondary to sepsis
Patient was taken off of alkaline fluid per nephrology. Ongoing Monitoring.
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
CT of the head ordered.
Oncology is following
-Acute kidney injury: Monitoring
Upon admission the patient has an elevated BUN of 72 and creatinine of 1.8. No acidosis and no significant fluid overload clinically. Patient's renal function baseline is not known.
Follow creatinine
Give hemodynamic support with fluids and vasopressors
Bladder scan protocol
Kidney and bladder ultrasound: Findings suggesting chronic outlet obstruction changes.
No indication for [employer]NAG[employer] ADVISER at this point per nephrology.
Cr steady increase. Today 4.2. Maintain folly cath.
Urine eosinophils (-) helping rule out nephrotoxic side effects of antibiotics.
-Essential hypertension: Monitoring
Patient has a history of hypertension on oral medication which we will hold. EKG shows nonspecific ST changes.
-Hypoxic respiratory failure: Monitoring
Suspected secondary to underlying lung disease. Support with oxygen for now and treat possible pneumonia.
High flow oxygen if needed. Note above^
BiPAP if necessary
Aspiration precautions
Nebulizers as needed
CT of chest consistent with widely metastatic pulmonary parenchymal disease versus diffuse infection
Severe emphysematous changes noted on CT lung
Ultrasound of the legs ruled out DVT.
Upper extremity US was ordered due to new onset upper extremity edema which came back unremarkable. Pick line in right arm.
-Severe protein caloric malnutrition: Monitoring
Unintentional weight loss >7.5% in the last 3 months
Poor nutrition intake <75% of estimated meds for > 1 month per nutrition.
Patient now on regular diet as he plans to move to comfort measures today.
DVT prophylaxis: Sequential compression devices
Full code
Data:
Chest x-ray on 12/17/2023: Moderately extensive diffuse coarsening of the interstitial markings throughout both lungs, new when compared with the prior study suggesting diffuse interstitial pneumonia.
Chest CT on 12/17/2023: Numerous nodular opacities throughout both lungs considered most suspicious for pulmonary metastatic disease in the setting of known metastatic parotid adenocarcinoma. Progression of osteoblastic metastatic disease in the
chest. Severe chronic obstructive pulmonary disease.
Chest CT on 12/17/[address] on 12/17/2023: No acute intracranial abnormality. Left mastoid effusion.
Renal ultrasound on 12/20/23: Findings suggesting of chronic outlet obstruction changes
Echocardiogram on 12/20/2023: Hyperdynamic left ventricular systolic function. Estimated ejection fraction 70 to 75%. Dilated hypokinetic right ventricle. Mild tricuspid regurgitation.
Adbomen/Pelvis CT on 12/21/2023: Numerous nodular densities throughout the bilateral lungs with increasing bibasilar atelectasis and a new left posterior lower lobe consolidation with air bronchograms suspicious for pneumonia. Extensive osteoblastic
metastatic disease throughout the visualized axial skeleton and pelvis. Numerous subcentimeter hypodensities throughout the liver, some which are likely cysts, others aren't fully characterized given lack of IV contrast. Metastasis cannot be
excluded in the setting of known metastatic cancer. Small volume ascites with diffuse body wall edema.
Anticipated Discharge: > 48 hours
Subjective/Interval History
-
Date of Service: December 23, 2023
Patient is still in a good mood, but is clearly not doing as well as previously. He is having increased difficulty breathing and appears more fatigued.
Objective Data
-
Labs:
Laboratory Results
12/23/23
03:13
WBC 5.9
Hgb 9.1 L
Hct 25.7 L
Plt Count 34 L
Sodium 129 L
Potassium 5.1
Chloride 99
Carbon Dioxide 18 L
BUN 99 H
Creatinine 4.2 H*
Glucose 130 H
Calcium 7.0 L
Vital Signs:
Vital Signs
Temp Pulse Resp BP Pulse Ox
98.6 F 111 14 109/62 93
12/23/23 07:54 12/23/23 08:25 12/23/23 07:32 12/23/23 08:25 12/23/23 07:34
I&O
12/22/23 12/23/23 12/24/23
06:59 06:59 06:59
Intake Total 3695.7 / 3767.0 1000.6 / 1008.1 7.5 / 7.5
Output Total 457 / 472 530 / 530
Balance 3238.7 / 3295.0 470.6 / 478.1 7.5 / 7.5
Review of Systems
-
History Source: Patient
EENT: Reports No Symptoms Reported
Respiratory: Reports Trouble Breathing
Cardiac: Reports No Symptoms
Abdomen/GI: Reports No Symptoms
Skin: Reports No Symptoms
Neuro: Reports No Symptoms
Physical Exam
-
General: Respiratory Distress
Respiratory: Crackles and Decreased Breath Sounds
Cardiac: Regular Rhythm and S1/S2
GI: Soft, Nontender, Nondistended and Normal Bowel Sounds
Musculoskeletal: No Edema
Neuro: AO x 3
Psych: Calm
--- NOTE | 2023-12-23 09:40 | PTCARENOTE ---
Dr. Redman in to speak with family. No other changes.
--- NOTE | 2023-12-23 10:15 | PTCARENOTE ---
BP 102 syst. Levophed turned off. Pt resting at intervals. No c/o discomfort. Family at the bedside.
--- NOTE | 2023-12-23 10:39 | W.PN.NEPH.PH ---
Today's Communication / Plan
-
possible hospice
Assessment/Plan
-
IMP:
Clinical shock with initial suspicion of septic shock
Acute hypoxic respiratory failure/suspected pneumonia
Acute kidney injury
metastatic left parotid tumor
Pancytopenia
Elevated troponin
Hyponatremia
Non gap metabolic acidosis
Hypoalbuminemia
COPD
h/o HTN
HLD
PLan:
A/w gen weakness and noted in clinical shock (culture negative)
LOGAN-cr steady increase , no baseline available , now up to 4.2 and oliguric with urine output noted at 250 cc, weights rising
Remains hemodynamically labile, off pressor support currently
Peripheral smear not consistent with microangiopathic process in setting of renal failure and thrombocytopenia
UA with ?UTI sample but cx neg, renal US chronic GÓMEZ
Will provide 80 mg of IV Lasix as weights rising and patient with increasing sob an don high flow O2
Briggs catheter for comfort, no plan of dialysis
noted that pt likely transition to hospice after meeting with hospice nurse today
d/w nursing and pt
Patient is critically ill with worsening renal failure and acute resp failure
-
-
Date of Service: December 23, 2023
CC / HPI / ROS
-
Chief Complaint:
Acute kidney injury
History of Present Illness:
Acute kidney injury worsened, cr at 4.2, oliguric 250cc
Hemodynamically labile off pressor support
Metabolic acidosis worse bicarb at 18
Thrombocytopenia persist
Review of Systems:
Oliguric via Briggs
Oxygen dependent 55lit on high flow O2
No chest pain
Weight is up 10 kg
No fevers
Labs
-
Labs:
WBC 5.9 10^3/uL (4.8-10.8) 12/23/23 03:13
RBC 2.93 10^6/uL (4.70-6.10) L 12/23/23 03:13
Hgb 9.1 g/dL (13.0-18.0) L 12/23/23 03:13
Hct 25.7 % (39.0-52.0) L 12/23/23 03:13
Plt Count 34 10^3/uL (130-400) L 12/23/23 03:13
Sodium 129 mmol/L (135-145) L 12/23/23 03:13
Potassium 5.1 mmol/L (3.5-5.1) 12/23/23 03:13
Chloride 99 mmol/L (98-107) 12/23/23 03:13
Carbon Dioxide 18 mmol/L (22-30) L 12/23/23 03:13
BUN 99 mg/dl (9-20) H 12/23/23 03:13
Creatinine 4.2 mg/dL (0.7-1.3) H* 12/23/23 03:13
eGFR 14.47 12/23/23 03:13
Glucose 130 mg/dl (70-99) H 12/23/23 03:13
Calcium 7.0 mg/dl (8.4-10.2) L 12/23/23 03:13
Phosphorus 5.5 mg/dl (2.5-4.5) H 12/22/23 03:13
Albumin 2.5 g/dl (3.5-5.0) L 12/23/23 03:13
Physical Exam
-
Vital Signs:
Vital Signs
Temp Pulse Resp BP Pulse Ox
98.5 F 115 13 135/67 85
12/23/23 08:00 12/23/23 09:00 12/23/23 09:00 12/23/23 09:00 12/23/23 09:00
Cardiovascular:: Regular rate and rhythm
Respiratory:: Bilateral: Coarse
Lung Excursion:: Abnormal
Abdomen:: Nontender and Soft
Extremity Edema:: None: Bilateral:
Briggs Catheter: Yes
[2023-12-23] MEDS: MERREM 500 MG IV ×2 (10:46→20:16)
[2023-12-23] MEDS: STERILE WATER FOR INJECTION 10 ML IV ×2 (10:46→20:16)
--- NOTE | 2023-12-23 11:00 | PTCARENOTE ---
Pt turned and repositioned. Moslty just on the High Flow currently. 55L/100%. Daja from Hospice in to see pt and speak with family. Plan is to transition toward comfort care once 2 addition sisters arrive later today. Support given.
--- NOTE | 2023-12-23 11:13 | HOSPNOTE ---
Spoke with family and patient at length about hospice. The plan is for the patient to remain on high flow oxygen until more family gets here around 5pm. The patient and family will let staff know to begin a morphine drip and make patient comfortable
and remove high flow. Family and patient are in agreement to discontinue all antibiotics. I will continue to be available to patient and family. I will continue to follow and support.
[2023-12-23] MEDS: LASIX 80 MG IV (12:03)
[2023-12-23] MEDS: MYCAMINE IV (12:10)
--- NOTE | 2023-12-23 12:10 | PTCARENOTE ---
Lasix 80 IV given. No other changes
--- NOTE | 2023-12-23 12:57 | CM ---
CM following re: discharge planning.
Reviewed pt's chart, met with pt.
Per Oncology, transitioning to comfort care as the most humane option, status changed to DNR.
Hospice consult noted. Pt's family requested hospice, A referral to hospice made. Per hospice administrator, awaiting for family members to arrive and pt will be transitioned to comfort care.
D/C plan: comfort care.
CM is available for emotional support.
--- NOTE | 2023-12-23 14:50 | PTCARENOTE ---
Slept for a while this afternoon- awake and states he actually feels better. Has been tolerating just the High Flow. Turned and repositioned. Support given. Call solorio in reach. Pts son at the bedside
--- NOTE | 2023-12-23 17:30 | PTCARENOTE ---
Pt awake visiting with family-sisters in from [place] and [place] from [facility]. Awake and conversant. Turned and repositioned. Skin care given. Tolerating just the High Flow same settings 55L/100%- sats at times difficult to obtain but when able are
94-98%. VS as documented. Remains off Levophed. Limited additional output from earlier Lasix -250 ml total for the shift. Call solorio in reach.
[2023-12-23] MEDS: TYLENOL 1000 MG PO (18:03)
--- NOTE | 2023-12-23 18:05 | PTCARENOTE ---
Given standing dose of Oxcodone but was having some additional L neck soreness- Medicated at pts request with [id number] mg PO. L neck wound unchanged- does have some sl swelling of L cheek- no change from earlier. Continues to drool intermittently
when drinking fluids. Spoke with Dr. Redman. No further current decisions from pt or family about transitioning to comfort at this moment.
[2023-12-23] MEDS: DESYREL 50 MG PO (20:14)
--- NOTE | 2023-12-23 20:30 | PTCARENOTE ---
on assessment pt AAOx3,denies pain, NIH completed at bedside with loree RN, See flow sheet, ST on the monitor, +2 generalized edema, High flow 55L/100%, reg diet, park for LOGAN, rectal trumpet, L neck wound, R double lumen PICC, family at
bedside, call solorio in reach.
[2023-12-23] MEDS: ZOFRAN 4 MG IV (21:08)
[2023-12-24] VITALS (19 sets, daily range): BP systolic 71–128; BP diastolic 20–87; BMI 25.8
--- NOTE | 2023-12-24 | PTCARENOTE ---
no changes from prior assessment, denies pain and SOB, sister at bedside, call solorio in reach. pt repositioned q2h.
--- NOTE | 2023-12-24 04:07 | PTCARENOTE ---
no changes from prior assessment, family remains at bedside, call solorio in reach.
[2023-12-24 05:40] LABS: % Eosinophils 0.2 % (0-6); % Immature Granulocytes 4.7 % (0-0.5); % Lymphocytes 3.1 % (20.5-51.1); % Monocytes 5.3 % (1.7-9.3); % Neutrophils 86.7 % (42.2-75.2); Absolute Immature Granulocytes 0.2 10^3/uL (0-0.05); Absolute Lymphocytes 0.2 10^3/uL (1.2-3.4); Absolute Monocytes 0.3 10^3/uL (0.1-0.6); Absolute Neutrophils 4.2 10^3/uL (1.4-6.5); Hematocrit 23.1 % (39.0-52.0); Mean Corp Hgb Conc. 34.6 g/dL (33.0-37.0); Mean Corpuscular Hgb 30.8 pg (27.0-31.0); Mean Corpuscular Volume 88.8 fL (80.0-94.0); Nucleated Red Blood Cells % 1.2 % (-); Platelet Count 20 10^3/uL (130-400); Red Cell Dist. Width 20.4 % (11.5-14.5); White Blood Cell Count 4.9 10^3/uL (4.8-10.8)
[2023-12-24 06:03] LABS: Blood Urea Nitrogen 120 mg/dl (9-20); Carbon Dioxide 17 mmol/L (22-30); Chloride 96 mmol/L (98-107); Estimated Creatinine Clearance 16 ml/min; Glucose 120 mg/dl (70-99); Potassium 5.6 mmol/L (3.5-5.1); Sodium 127 mmol/L (135-145); eGFR 12.97
[2023-12-24] MEDS: CALCIUM CHLORIDE 10% SYRINGE 60 MG IV (06:20)
[2023-12-24] MEDS: NOVOLIN R 10 UNITS IV (06:21)
[2023-12-24] MEDS: DEXTROSE 50% SYRINGE 25 GRAMS IV (06:23)
[2023-12-24 06:28] LABS: Glucose - Point of Care 171 mg/dl (70-99)
--- NOTE | 2023-12-24 07:36 | W.PN.HOSP.TC ---
Addendum entered and electronically signed by Ingrid Redman MD 12/24/23 19:43:
I saw and evaluated the patient independently. I reviewed the resident�s note and agree with findings and plan as documented by Dr. Calixto.
GENERAL: chronically ill appearing male in no apparent distress
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
HEART: regular rate and rhythm, +S1, +S2, tachycardic
LUNGS : crackles bilaterally
ABDOM: soft, nontender, nondistended, + bowel sounds
EXT: no cyanosis, clubbing--right upper arm edema--PICC line
NEUROLOGIC: grossly intact except for facial palsy
: park cath
after discussion again with pt and family, pt moved to comfort measures:
ongoing medical issues supporting this plan are,
septic shock due to possible pneumonia (pt admitted to aspiration)--significant hypotension requiring vasopressors
Pancytopenia--unclear if bone marrow involved, although likely
Non anion gap acidosis--May be secondary to sepsis
metastatic Left parotid adenocarcinoma
Acute kidney injury, worsening despite IVF and park cath
Essential hypertension--Patient has a history of hypertension on oral medication which we will hold. EKG shows nonspecific ST changes.
Hypoxic respiratory failure
severe protein calorie malnutrition--apprec dietary input
Total Critical Care Time 31 minutes. I was immediately available to the patient and staff. I personally examined, reviewed labs, diagnostic images/reports, interpretations, treatment plans, discussed patient care with other providers and family
or caregivers (if patient is unable to make decisions), entered orders as appropriate and documented the medical record.
Original Note:
Today's Communication/Plan
-
Patient's kidney function continued to decline. High O2 requirements required. Patient and family decided to begin comfort care. Pt moved to comfort care today.
Assessment / Plan
Assessment / Plan
- Clinical shock due to septic shock or metastatic cancer: Moved to comfort measures.
significant hypotension requiring vasopressors in the emergency department
Patient admitted to aspiration and chest x-ray shows signs of pneumonia with extensive diffuse coarsening of the interstitial markings throughout both lungs -clinical concern is either aspiration pneumonia/hospital acquired pneumonia versus other
interstitial lung processes.
Abdominal/Pelvic CT revealed numerous nodular densities throughout the bilateral lungs with increasing bibasilar atelectasis and a new left posterior lower lobe consolidation with air bronchograms suspicious for pneumonia. Extensive osteoblastic
metastatic disease throughout the visualized axial skeleton and pelvis. Numerous subcentimeter hypodensities throughout the liver, some which are likely cysts, others aren't fully characterized given lack of IV contrast. Metastasis cannot be
excluded in the setting of known metastatic cancer. Small volume ascites with diffuse body wall edema.
Increased crackles in bilateral lower lobes and wheezing.
Patient weaned down from 65L to 50L since yesterday. Sating 92%.
Duoneds + fluticasone/salmeterol started for SOB. Indicated for hx of COPD.
Blood culture drawn negative
Continue Levophed to maintain systolic BP >90.
Continue Midodrine per Nephrology and cardio.
If BP improves, can use home dose metoprolol tartrate 25 mg BID to manage sinus tachycardia per cardio.
Patient iona 9kg over admit. Nephro suspects potential volume overload. IV fluids d/c.
Vancomycin and Zosyn switched to vancomycin and meropenem per ID consult.
Micafungin continued.
Patient will be put on a puree diet and thin liquids per swallowing study.
Head MRI ordered by market garden worker due to waxing and waning mental status. Results shows bilateral ischemic strokes both acute and subacute.
Patient not a good candidate for JUAN and unable to start aspirin until plt 40-50,000 per neuro. Regular neuro checks.
Oncology reported patient's worsening condition is likely due to metastatic cancer. Not a candidate for anti-neoplastic therapy. Prognosis is dismal.
After discussion with oncologist patient switched to DNR and will likely start comfort measures today. Awaiting for more family input.
Patient put on comfort measures. Family agreed.
- Pancytopenia:
1 unit of PRBCs given due to severe anemia
Trend H&H, white blood cells, and platelets -hemoglobin and hematocrit stable, white blood cells now within normal limits. Thrombocytopenia ongoing.
oncology conuslted. Noted that anemia and thrombocytopenia are most likely due to bone marrow metastases, indicating bone marrow failure. He has circulating nucleated red blood cells, as well as a left shift in his white cell line. Even
without his worsening renal failure, this portends a very poor prognosis.
ICU doctor gave 1 platelet single donor leuko.
Repeat peripheral blood smear, LDH and LFTs to rule out potential TTP. Oncology re-evaluated patient and believes pancytopenia is due to bone marrow metastasis not TTP.
Patient moving to comfort measures.
-Electrolyte imbalance
Morning labs shows K 5.6.
Given insulin and dextrose
Calcium corrected for low albumin 7.4. ICU gave Ca.
Patient moved to comfort measures.
-Non anion gap acidosis:
May be secondary to sepsis
Patient was taken off of alkaline fluid per nephrology.
Moved to comfort measures today.
-Left parotid adenocarcinoma:
CT of the head ordered.
Oncology removed. Patient moved to comfort measures.
-Acute kidney injury:
Upon admission the patient has an elevated BUN of 72 and creatinine of 1.8. No acidosis and no significant fluid overload clinically. Patient's renal function baseline is not known.
Follow creatinine
Give hemodynamic support with fluids and vasopressors
Bladder scan protocol
Kidney and bladder ultrasound: Findings suggesting chronic outlet obstruction changes.
No indication for [facility] [employer] at this point per nephrology.
Cr steady increase. Today 4.8. Maintain folly cath.
Urine eosinophils (-) helping rule out nephrotoxic side effects of antibiotics.
Moved to comfort measures today.
-Essential hypertension:
Patient has a history of hypertension on oral medication which we will hold. EKG shows nonspecific ST changes.
-Hypoxic respiratory failure:
Suspected secondary to underlying lung disease. Support with oxygen for now and treat possible pneumonia.
High flow oxygen if needed. Note above^
BiPAP if necessary
Aspiration precautions
Nebulizers given. Noted above.
CT of chest consistent with widely metastatic pulmonary parenchymal disease versus diffuse infection
Severe emphysematous changes noted on CT lung
Ultrasound of the legs ruled out DVT.
Upper extremity US was ordered due to new onset upper extremity edema which came back unremarkable. Pick line in right arm.
Moved to comfort measures today.
-Severe protein caloric malnutrition:
Unintentional weight loss >7.5% in the last 3 months
Poor nutrition intake <75% of estimated meds for > 1 month per nutrition.
Patientmoved to regular diet.
Moved to comfort measures today.
DVT prophylaxis: Sequential compression devices
Full code
Data:
Chest x-ray on 12/17/2023: Moderately extensive diffuse coarsening of the interstitial markings throughout both lungs, new when compared with the prior study suggesting diffuse interstitial pneumonia.
Chest CT on 12/17/2023: Numerous nodular opacities throughout both lungs considered most suspicious for pulmonary metastatic disease in the setting of known metastatic parotid adenocarcinoma. Progression of osteoblastic metastatic disease in the
chest. Severe chronic obstructive pulmonary disease.
Chest CT on 12/17/[address] on 12/17/2023: No acute intracranial abnormality. Left mastoid effusion.
Renal ultrasound on 12/20/23: Findings suggesting of chronic outlet obstruction changes
Echocardiogram on 12/20/2023: Hyperdynamic left ventricular systolic function. Estimated ejection fraction 70 to 75%. Dilated hypokinetic right ventricle. Mild tricuspid regurgitation.
Adbomen/Pelvis CT on 12/21/2023: Numerous nodular densities throughout the bilateral lungs with increasing bibasilar atelectasis and a new left posterior lower lobe consolidation with air bronchograms suspicious for pneumonia. Extensive osteoblastic
metastatic disease throughout the visualized axial skeleton and pelvis. Numerous subcentimeter hypodensities throughout the liver, some which are likely cysts, others aren't fully characterized given lack of IV contrast. Metastasis cannot be
excluded in the setting of known metastatic cancer. Small volume ascites with diffuse body wall edema.
Anticipated Discharge: Today
Subjective/Interval History
-
Date of Service: December 24, 2023
Objective Data
-
Labs:
Laboratory Results
12/24/23 12/24/23
04:30 04:31
WBC 4.9
Hgb 8.0 L
Hct 23.1 L
Plt Count 20 L* D
Sodium 127 L
Potassium 5.6 H
Chloride 96 L
Carbon Dioxide 17 L
BUN 120 H*
Creatinine 4.6 H*
Glucose 120 H
Calcium 7.0 L
Vital Signs:
Vital Signs
Temp Pulse Resp BP Pulse Ox
98.1 F 104 11 102/60 94
12/24/23 03:42 12/24/23 06:30 12/24/23 06:30 12/24/23 06:00 12/24/23 06:30
I&O
12/23/23 12/24/23 12/25/23
06:59 06:59 06:59
Intake Total 1000.6 / 1008.1 492.6 / 492.6
Output Total 530 / 530 240 / 240
Balance 470.6 / 478.1 252.6 / 252.6
Review of Systems
-
History Source: Patient
EENT: Reports No Symptoms Reported
Respiratory: Reports Trouble Breathing
Cardiac: Reports No Symptoms
Abdomen/GI: Reports Nausea
Genitourinary: Reports No Symptoms
Neuro: Reports No Symptoms
Physical Exam
-
Respiratory: Crackles
Cardiac: Regular Rhythm and S1/S2
GI: Soft, Nontender, Nondistended and Normal Bowel Sounds
Musculoskeletal: No Edema
Neuro: Awake and Alert; Negative Oriented
Psych: Calm
[2023-12-24] MEDS: ADVAIR HFA 115/21 MCG INHALER 2 PUFF INH (07:43)
[2023-12-24] MEDS: DUONEB 3 ML INH (07:43)
[2023-12-24] MEDS: POLYSPORIN OINTMENT 1 APPLIC TOPICAL (07:51)
[2023-12-24] MEDS: SOLU-MEDROL PF 40 MG IV (07:51)
[2023-12-24] MEDS: FLOMAX 0.4 MG PO (07:52)
[2023-12-24] MEDS: CRESTOR 10 MG PO (07:52)
[2023-12-24] MEDS: SENOKOT 8.6 MG PO (07:52)
[2023-12-24] MEDS: PROTONIX 40 MG PO (07:52)
[2023-12-24] MEDS: NON-FORMULARY ITEM 1 APPLIC TOPICAL (07:52)
[2023-12-24] MEDS: ROXICODONE 5 MG PO (07:52)
[2023-12-24] MEDS: ProAmatine 10 MG PO (07:53)
--- NOTE | 2023-12-24 10:27 | PTOTSP ---
Reviewed chart and s/w RN who reports Pt to sign onto hospice today and not appropriate for skilled PT. Will sign off.
[2023-12-24] MEDS: STERILE WATER FOR INJECTION 10 ML IV (10:36)
[2023-12-24] MEDS: MERREM 500 MG IV (10:36)
--- NOTE | 2023-12-24 11:01 | CM ---
Patient seen at bedside with physicians. Patient stated that he would agree to whatever physician and family recommended. Family present for discussion with physician, awaiting patient . Patient for comfort measures following discussion with
[facility] hospice today. CM will continue to follow for discharge planning needs.
Plan; comfort care.
--- NOTE | 2023-12-24 11:39 | HOSPNOTE ---
Met with family again, they are in agreement with comfort care. Attending aware of plan and in agreement. I will continue to follow.
[2023-12-24] MEDS: MORPHINE SULFATE 2 MG IV ×4 (11:55→16:23)
[2023-12-24] MEDS: MORPHINE 100 IV (12:07)
[2023-12-24] MEDS: ATIVAN 0.5 MG IV ×2 (12:28→15:08)
--- NOTE | 2023-12-24 12:46 | W.PN.UPDATE ---
Update Note
Progress Note Update
Patient being transitioned to comfort care this morning. tapper bit, Daja Pedraza, at bedside. Patient will not be seen today. This is not a billable encounter.
--- NOTE | 2023-12-24 13:36 | PTCARENOTE ---
pt awake and alert this am , pt on HFNC 100% 50L , sats 92% , pt seen by Dr Stover this am and pt and family had long discussion with goals of care , he was transitioned to hospice and at 12:00 pt given 2mg IV morphine , then started morphine
gtt as ordered, he had anxiety and given lorazepam at 1230 , he is now minimally arousable , HFNC is off now o2 sat 50s
--- NOTE | 2023-12-24 17:18 | W.PN.DEATH ---
Addendum entered and electronically signed by Ingrid Redman MD 12/24/23 17:22:
Cause of : multisystem organ failure, septic shock due to pneumonia, metastatic parotid adenocarcinoma
Original Note:
Pronouncement of
-
Called to see patient to pronounce.
No spontaneous heart tones or respirations noted.
Patient not responsive to verbal stimuli.
Patient is pronounced .
Time of : 17:15
Date of : 12/24/23
Family Notified: Yes (at bedside)
--- NOTE | 2023-12-24 17:41 | PTCARENOTE ---
pt at 1715 , family at bedside , Dr Redman here to pronounce pt
--- NOTE | 2023-12-24 19:50 | W.DCSUMMARY ---
Addendum entered and electronically signed by Ingrid Redman MD 12/25/23 07:45:
Read, reviewed, and agree. See same day progress note for additional details. Time spent coordinating care, DC planning, review of DC plan of care with resident, transition of care, review of records in EMR, med rec, consults, notes, d/w
consultants, nursing, family, and CM = 45 minutes
In addition, patient had changes in mental status that were waxing and waning. Oncology recommended MRI of the brain which showed multiple tiny acute ischemic infarct throughout the right frontal and parietal lobes. Neurology was consulted, but
unfortunately, patient could not have aspirin and or clopidogrel due to thrombocytopenia. This only added to the poor prognosis as this was felt to possibly be due to malignancy as well. As mentioned, TTP was ruled out since there was no evidence
of microangiopathic hemolytic anemia on blood smear.
Multiple conversations were had with the patient and his family. Hospice was consulted. It was mutually decided that the patient would be placed on comfort measures with morphine drip. Patient quickly as anticipated. Family at
bedside.
Original Note:
Documented by User: Hillary Calixto MD, Resident 12/24/23 20:54
Discharge Summary
Discharge Data
Date of Admission: 12/17/23
Date of Discharge: 12/24/23
-
Pending Results: No
Hospital Course
Primary Diagnosis:
-Clinical shock due to septic shock
-Pancytopenia
-Left parotid adenocarcinoma
-Acute kidney injury
-Hypoxic respiratory failure
-Non anion gap acidosis
-Electrolyte imbalance
-Severe protein caloric malnutrition
Secondary Diagnosis:
-Essential hypertension
-COPD
Hospital Course:
Cory Echeverria is a 68-year-old man with a past medical history of metastatic parotid adenocarcinoma presented to the ED on 12/17/2023 after inability to stand feeling profoundly weak. Patient underwent radiation therapy 1 to 2 weeks prior to left
mandibular region/neck. He has had 20 cycles of radiation treatments at [facility] prior. He presented to the ED significantly hypotensive unresponsive to fluid. He was admitted to the ICU on vasopressors. White blood cell count 4.3 hemoglobin 7.9
platelets 36, bun 72 creatinine 1.8, troponin 0.4. Chest x-ray showed signs of pneumonia with extensive diffuse coarsening of the interstitial markings throughout both lungs. Abdominal/pelvic CT revealed numerous nodular densities throughout
bilateral lungs along with extensive osteoblastic metastatic disease throughout the visualized axial skeleton and pelvis. Numerous subcentimeter hypodensities throughout the liver were also noted. Due to lack of IV contrast radiologist was unable
to rule out these lesions as metastatic. Clinical shock due to sepsis diagnosis was made. Broad bands antibiotics were started and he was given 1 unit of packed red blood cells due to anemia. Patient was put on oxygen due to shortness of breath.
Patient had a nonanion gap metabolic acidosis. Patient evaluated by cardiology, infectious disease, oncology and nephrology. Cardiology was consulted due to elevated troponin of 0.4 on presentation cardiology suspected troponin increased due to
sepsis. Infectious disease started patient on Zosyn and Levaquin as patient tested negative for MRSA. They later added micafungin and eventually progressed to micafungin, vancomycin, and meropenem with no improvement of clinical status. Blood and
urine cultures were negative, but patient kept on antibiotics. Patient's creatinine and bun continued to rise. Nephrology noted patient was not a candidate for renal replacement therapy. Folly recommended to be remained inserted. Alkaline fluids
did not help patient's metabolic acidosis. Blood pressure remained labile while on pressors. Cardiology recommended addition of midodrine. Creatinine levels continue to rise. DVT was also evaluated due to ongoing SOB and extremity swelling and
ruled out with normal lower extremity and right upper extremity US (location of picc line from ongoing cancer treatments in right arm). Oncology care was switched to [facility]. Oncology evaluated patient for DIC and TTP due to anemia and
decreasing platelet levels. Patient received platelets for thrombocytopenia. DIC and TTP were ruled out and oncology believed pancytopenia was due to bony metastatic cancer. On 12/23/2023, after evaluating patient and noticing no change to
clinical status despite strong antibiotic therapy and unclear nature of CT due to lack of contrast oncology believed that many of the lesions within the lungs and liver are due to to metastatic cancer. Patient was deemed not a candidate for
antineoplastic therapy and prognosis was dismal. At this point suggestion to transition patient to comfort care was discussed with family. Patient status was changed to DNR. Oxygen requirements continued to increase switching to high flow nasal
cannula along with rising bun and creatinine levels.
On 12/23, WBC 4.9, RBC 8.0, PLT 20 L, cr 4.6, bun 120. High flow nasal cannula 55 L at oxygen saturation 92%. Patient and family agreed to switch patient to comfort measures in the afternoon. Patient later that afternoon at 5:15 PM due
to multisystem organ failure, septic shock due to pneumonia and metastatic parotid adenocarcinoma surrounded by family members. He passed peacefully.
Discharge Plan
-
Patient Disposition:
Date/Time
Date/Time: 12/24/23 17:15
Discharge Date and Time
Discharge Date/Time: 12/24/23 17:15
Print Language: SETSWANA

Documented by User: Ingrid Redman MD 12/25/23 07:07
Discharge Summary
Discharge Data
Date of Admission: 12/17/23
Date of Discharge: 12/25/23
Discharge Plan
-
Patient Disposition:
Date/Time
Date/Time: 12/24/23 17:15
Discharge Date and Time
Discharge Date/Time: 12/24/23 17:15
Print Language: SETSWANA
== END 2023-12-24 17:15 | disposition expired | DRG 871 ==
LOC: ICU 17:59
PROVIDERS: Emergency Medicine; Internal Medicine; Internal Medicine Critical Care Medicine; Internal Medicine Hematology & Oncology; Nurse Practitioner Family; Specialist; Student in an Organized Health Care Education/Training Program; ADMITTING PHYSICIAN Internal Medicine; ATTENDING PHYSICIAN Internal Medicine; EMERGENCY PHYSICIAN Emergency Medicine; FAMILY PHYSICIAN Nurse Practitioner; OTHER PHYSICIAN Internal Medicine Cardiovascular Disease; OTHER PHYSICIAN Internal Medicine Hematology & Oncology; OTHER PHYSICIAN Student in an Organized Health Care Education/Training Program
PROC: 30233N1 Transfusion of Nonautologous Red Blood Cells into Peripheral Vein, Percutaneous Approach (ICD-10-PCS; 2023-12-17)
PROC: 5A0935A Assistance with Respiratory Ventilation, Less than 24 Consecutive Hours, High Flow/Velocity Cannula (ICD-10-PCS; 2023-12-17)
PROC: 3E033XZ Introduction of Vasopressor into Peripheral Vein, Percutaneous Approach (ICD-10-PCS; 2023-12-17)
PROC: 30233R1 Transfusion of Nonautologous Platelets into Peripheral Vein, Percutaneous Approach (ICD-10-PCS; 2023-12-22)
DX: A41.9 Sepsis, unspecified organism (principal); E43 Unspecified severe protein-calorie malnutrition; J18.9 Pneumonia, unspecified organism; R65.21 Severe sepsis with septic shock; G92.8 Other toxic encephalopathy; I63.9 Cerebral infarction, unspecified; J96.91 Respiratory failure, unspecified with hypoxia; C79.51 Secondary malignant neoplasm of bone; C79.52 Secondary malignant neoplasm of bone marrow; D61.818 Other pancytopenia; Z66 Do not resuscitate; E87.20 Acidosis, unspecified; E87.1 Hypo-osmolality and hyponatremia; J44.0 Chronic obstructive pulmonary disease with (acute) lower respiratory infection; I5A Non-ischemic myocardial injury (non-traumatic); N17.9 Acute kidney failure, unspecified; Z51.5 Encounter for palliative care; C07 Malignant neoplasm of parotid gland; E78.00 Pure hypercholesterolemia, unspecified; N40.0 Benign prostatic hyperplasia without lower urinary tract symptoms; E83.51 Hypocalcemia; E86.1 Hypovolemia; E88.09 Other disorders of plasma-protein metabolism, not elsewhere classified; G51.0 Bell's palsy; I10 Essential (primary) hypertension; R00.0 Tachycardia, unspecified; D69.6 Thrombocytopenia, unspecified; D63.0 Anemia in neoplastic disease; Z92.3 Personal history of irradiation; Z87.891 Personal history of nicotine dependence; Z79.899 Other long term (current) drug therapy; Z68.25 Body mass index [BMI] 25.0-25.9, adult
CPT/HCPCS: 70450; 70551; 71045; 71250; 74176; 74230; 76770; 80048; 80053; 80202; 81003; 81015; 81099; 82040; 82248; 82533; 82570; 82728; 82805; 82962; 83540; 83550; 83605; 83615; 83735; 84100; 84145; 84300; 84484; 85014; 85018; 85025; 85027; 85045; 85384; 85610; 85730; 86850; 86900; 86901; 86920; 87040; 87070; 87086; 87641; 87811; 92526; 92610; 92611; 93005; 93306; 93931; 93970; 93971; 94640; 96361; 96365; 96366; 96375; 99291; P9016; P9047; P9073